=== PATIENT | female | born 1990 | race Caucasian/White ===

== ENCOUNTER 2016-09-10 16:37 | Emergency (ER) | payer OTHER ==
[2016-09-10] MEDS ORDERED: MORPHINE SULFATE 4 MG/ML SYRINGE IV STA ×2 (17:22→20:11)
[2016-09-10] MEDS ORDERED: SODIUM CHLORIDE 0.9% 500 ML IV STA (17:22)
[2016-09-10 17:59] LABS: Appearance,Urine Clear (Clear); Bilirubin,Urine Negative (Negative); Glucose,Urine (UA) Negative (Negative); Ketones,Urine Negative (Negative); Leukocyte Esterase,Urine Negative (Negative); Nitrite,Urine Negative (Negative); Protein,Urine Negative (Negative); Specific Gravity,Urine 1.017 (1.001-1.035); UA Billing (MACRO vs. MICRO) CHEM; Urobilinogen,Urine <2.0 mg/dL (<2.0)
[2016-09-10 18:08] LABS: ALT 38 U/L (9-52); AST 23 U/L (14-36); Alkaline Phosphatase 68 U/L (38-126); Amylase 83 U/L (30-110); Anion Gap 8 mmol/L; Blood Urea Nitrogen 18 mg/dL (7-17); Calcium 9.3 mg/dL (8.4-10.2); Carbon Dioxide 26 mmol/L (22-30); Chloride 105 mmol/L (98-107); Glucose 90 mg/dL (74-99); Non-African American GFR(MDRD) >60 (>60 ml/min/1.73 sqM); Potassium 4.3 mmol/L (3.5-5.1); Sodium 139 mmol/L (137-145); Total Bilirubin 0.5 mg/dL (0.2-1.3); Total Protein 7.2 g/dL (6.3-8.2)
[2016-09-10 18:24] LABS: Aty Lym Flag Slight; CH 30.5; CHCM 35.1; HCT 44.1 % (34.0-46.0); HDW 2.63; HGB 14.9 gm/dL (11.4-16.0); MCH 29.5 pg (25.0-35.0); MCHC 33.8 g/dL (31.0-37.0); MCV 87.3 fL (80.0-100.0); Mean Platelet Volume 9.4; RBC 5.05 m/uL (3.80-5.40); RDW 12.6 % (11.5-15.5); WBC 6.6 k/uL (3.8-10.6); WBC (Perox) 6.64
--- NOTE | 2016-09-10 18:48 | CT ---
EXAMINATION TYPE: CT abdomen pelvis wo con DATE OF EXAM: 09/10/2016 6:25 PM COMPARISON: NONE INDICATION: generalized pain DLP: 565 mGycm, Automated exposure control for dose reduction was used. CONTRAST: None Study performed without Oral Contrast TECHNIQUE: Axial images were obtained from above the diaphragm to the pubic rami in the axial plane a t 5 mm thick sections. Reconstructed images are reviewed on the computer in the coronal plane. FINDINGS: Limited CT sections are obtained the lung bases. The lung bases are clear. CT ABDOMEN: Liver: Normal Spleen: Normal Pancreas: Normal Adrenal glands: The adrenal glands are normal. Gallbladder: Normal Kidneys: No masses are evident. No hydronephrosis is present. No cysts are present. No renal stone s are identified. No hydroureter is evident. Aorta: Normal Inferior vena cava: Normal. CT PELVIS: Loops of bowel within the abdomen and pelvis are normal. Appendix: Normal as visualized. Urinary bladder: Normal. There is a calcification in the left hemipelvis likely related to a phleboli th. Distal ureteral stone without obstruction is considered less likely. Ureters more likely anterior to the location. Genitourinary structures: Uterus is unremarkable. Adnexal regions are clear. Osseous structures: No suspicious lytic or sclerotic lesions. IMPRESSIONS: 1. No suspicious changes.
[2016-09-10 19:06] LABS: Add Differential Manual Differential
[2016-09-10 19:11] LABS: Large Platelets Present; Manual Review Performed; Nucleated Red Blood Cells 0 /100 WBC (0-0); RBC Morphology Normal; Reactive Lymphocytes Present; Total Cells Counted 100
--- NOTE | 2016-09-10 20:14 | ED ---
Abdominal Pain HPI - General Chief Complaint: Abdominal Pain Stated Complaint: Abdominal Pain Time Seen by Provider: 09/10/16 17:03 Source: patient Mode of arrival: ambulatory Limitations: no limitations - History of Present Illness MD Complaint: flank pain Onset/Timin -: days(s) Location: L flank Radiation: none Migration to: no migration Severity: moderate Quality: aching Consistency: constant Improves With: nothing Worsens With: nothing Associated Symptoms: other (Frequency) - Related Data Home Medications Medication Instructions Recorded Confirmed Dextroamphetamine/Amphetamine 20 mg PO BID 05/08/16 10/10/16 [Adderall] Polyethylene Glycol 3350 [Miralax] 17 gm PO DAILY PRN 10/10/16 10/10/16 Previous Rx's Medication Instructions Recorded Dicyclomine [Bentyl] 20 mg PO QID PRN 5 Days 10/10/16 Sucralfate [Carafate] 1 gm PO BID PRN 5 Days 10/10/16 Allergies Allergy/AdvReac Type Severity Reaction Status Date / Time amoxicillin [Amoxicillin] AdvReac Abdominal Verified 10/10/16 11:05 Pain ciprofloxacin [From Cipro] AdvReac itching, Verified 10/10/16 11:05 chest pain, swelling Review of Systems ROS Statement: Those systems with pertinent positive or pertinent negative responses have been documented in the HPI. ROS Other: All systems not noted in ROS Statement are negative. Constitutional: Denies: fever, chills, weakness Respiratory: Denies: cough, dyspnea Cardiovascular: Denies: chest pain, palpitations, edema Gastrointestinal: Reports: as per HPI, abdominal pain (Flank pain). Denies: nausea, vomiting, diarrhea, constipation Genitourinary: Reports: frequency. Denies: dysuria, hematuria, abnormal menses Musculoskeletal: Denies: back pain Skin: Denies: rash Neurological: Denies: headache, weakness, numbness Past Medical History Past Medical History: No Reported History History of Any Multi-Drug Resistant Organisms: None Reported Past Surgical History: Appendectomy, Tonsillectomy Additional Past Surgical History / Comment(s): D & C, nasal surgery, laparoscopy Past Anesthesia/Blood Transfusion Reactions: No Reported Reaction Past Psychological History: No Psychological Hx Reported Smoking Status: Never smoker Past Alcohol Use History: None Reported Past Drug Use History: None Reported - Past Family History Mother Family Medical History: Hypertension General Exam Limitations: no limitations General appearance: alert, in no apparent distress Head exam: Present: atraumatic, normocephalic Eye exam: Present: normal appearance Respiratory exam: Present: normal lung sounds bilaterally. Absent: respiratory distress, wheezes, rales, rhonchi, stridor Cardiovascular Exam: Present: regular rate, normal rhythm, normal heart sounds. Absent: systolic murmur, diastolic murmur, rubs, gallop GI/Abdominal exam: Present: soft. Absent: distended, tenderness, guarding, rebound, rigid, mass, hernia Extremities exam: Present: normal inspection, normal capillary refill. Absent: pedal edema, calf tenderness Back exam: Present: normal inspection, CVA tenderness (L). Absent: CVA tenderness (R) Neurological exam: Present: alert Skin exam: Present: warm, dry, intact, normal color. Absent: rash Course Vital Signs 09/10/16 09/10/16 16:50 20:23 Temperature 99.3 F 98.8 F Pulse Rate 87 75 Respiratory 20 16 Rate Blood Pressure 121/64 121/79 O2 Sat by Pulse 99 97 Oximetry Medical Decision Making - Lab Data Result diagrams: 09/10/16 17:45 09/10/16 17:45 Lab Results 09/10/16 09/10/16 09/10/16 Range/Units 17:45 17:45 17:45 WBC (3.8-10.6) k/uL RBC (3.80-5.40) m/uL Hgb (11.4-16.0) gm/dL Hct (34.0-46.0) % MCV (80.0-100.0) fL MCH (25.0-35.0) pg MCHC (31.0-37.0) g/dL RDW (11.5-15.5) % Plt Count (150-450) k/uL Neutrophils % (Manual) % Lymphocytes % (Manual) % Monocytes % (Manual) % Eosinophils % (Manual) % Neutrophils # (Manual) (1.3-7.7) k/uL Lymphocytes # (Manual) (1.0-4.8) k/uL Monocytes # (Manual) (0-1.0) k/uL Eosinophils # (Manual) (0-0.7) k/uL Nucleated RBCs (0-0) /100 WBC Manual Slide Review Reactive Lymphocytes Large Platelets RBC Morphology Sodium 139 (137-145) mmol/L Potassium 4.3 (3.5-5.1) mmol/L Chloride 105 (98-107) mmol/L Carbon Dioxide 26 (22-30) mmol/L Anion Gap 8 mmol/L BUN 18 H (7-17) mg/dL Creatinine 0.60 (0.52-1.04) mg/dL Est GFR (MDRD) Af Amer >60 (>60 ml/min/1.73 sqM) Est GFR (MDRD) Non-Af >60 (>60 ml/min/1.73 sqM) Glucose 90 (74-99) mg/dL Calcium 9.3 (8.4-10.2) mg/dL Total Bilirubin 0.5 (0.2-1.3) mg/dL AST 23 (14-36) U/L ALT 38 (9-52) U/L Alkaline Phosphatase 68 (38-126) U/L Total Protein 7.2 (6.3-8.2) g/dL Albumin 4.1 (3.5-5.0) g/dL Amylase 83 (30-110) U/L Lipase 254 (23-300) U/L Urine Color Yellow Urine Appearance Clear (Clear) Urine pH 6.0 (5.0-8.0) Ur Specific [place] 1.017 (1.001-1.035) Urine Protein Negative (Negative) Urine Glucose (UA) Negative (Negative) Urine Ketones Negative (Negative) Urine Blood Negative (Negative) Urine Nitrate Negative (Negative) Urine Bilirubin Negative (Negative) Urine Urobilinogen <2.0 (<2.0) mg/dL Ur Leukocyte Esterase Negative (Negative) Urine HCG, Qual Not Detected (Not Detectd) 09/10/16 Range/Units 17:45 WBC 6.6 (3.8-10.6) k/uL RBC 5.05 (3.80-5.40) m/uL Hgb 14.9 (11.4-16.0) gm/dL Hct 44.1 (34.0-46.0) % MCV 87.3 (80.0-100.0) fL MCH 29.5 (25.0-35.0) pg MCHC 33.8 (31.0-37.0) g/dL RDW 12.6 (11.5-15.5) % Plt Count 181 (150-450) k/uL Neutrophils % (Manual) 58.0 % Lymphocytes % (Manual) 32.0 % Monocytes % (Manual) 9.0 % Eosinophils % (Manual) 1.0 % Neutrophils # (Manual) 3.8 (1.3-7.7) k/uL Lymphocytes # (Manual) 2.1 (1.0-4.8) k/uL Monocytes # (Manual) 0.6 (0-1.0) k/uL Eosinophils # (Manual) 0.1 (0-0.7) k/uL Nucleated RBCs 0 (0-0) /100 WBC Manual Slide Review Performed Reactive Lymphocytes Present Large Platelets Present RBC Morphology Normal Sodium (137-145) mmol/L Potassium (3.5-5.1) mmol/L Chloride (98-107) mmol/L Carbon Dioxide (22-30) mmol/L Anion Gap mmol/L BUN (7-17) mg/dL Creatinine (0.52-1.04) mg/dL Est GFR (MDRD) Af Amer (>60 ml/min/1.73 sqM) Est GFR (MDRD) Non-Af (>60 ml/min/1.73 sqM) Glucose (74-99) mg/dL Calcium (8.4-10.2) mg/dL Total Bilirubin (0.2-1.3) mg/dL AST (14-36) U/L ALT (9-52) U/L Alkaline Phosphatase (38-126) U/L Total Protein (6.3-8.2) g/dL Albumin (3.5-5.0) g/dL Amylase (30-110) U/L Lipase (23-300) U/L Urine Color Urine Appearance (Clear) Urine pH (5.0-8.0) Ur Specific [place] (1.001-1.035) Urine Protein (Negative) Urine Glucose (UA) (Negative) Urine Ketones (Negative) Urine Blood (Negative) Urine Nitrate (Negative) Urine Bilirubin (Negative) Urine Urobilinogen (<2.0) mg/dL Ur Leukocyte Esterase (Negative) Urine HCG, Qual (Not Detectd) Disposition Clinical Impression: Abdominal pain Disposition: HOME SELF-CARE Condition: Fair Instructions: Abdominal Pain (ED) Referrals: Kentrell Bell MD [Primary Care Provider] - 1-2 days
[2016-09-10 20:26] VITALS: BP 121/79; PULSE 75; RESP 16; TEMP 98.8
[2016-09-10] MEDS ORDERED: MAGNESIUM CITRATE 296 ML BOTTLE PO ONE (20:45)
== END 2016-09-10 21:08 | disposition home or self-care (01) ==
LOC: EC 16:37
DX: R10.9 Unspecified abdominal pain (principal); Z79.899 Other long term (current) drug therapy; Z88.0 Allergy status to penicillin; Z90.49 Acquired absence of other specified parts of digestive tract
CPT/HCPCS: 36415; 80053; 82150; 83690; 85025; 81003; 81025; 74176; 99284; 96374; 96376; J2270

== ENCOUNTER → 2016-09-18 | Outpatient (CLI) | payer OTHER ==
--- NOTE | 2016-09-18 18:31 | US ---
EXAMINATION TYPE: US transvaginal DATE OF EXAM: 09/18/2016 6:06 PM COMPARISON: CT and US in PACS CLINICAL HISTORY: R10.2 Pelvic Pain. TECHNIQUE: Transvaginal (TV) Date of LMP: 09/18/2016 EXAM MEASUREMENTS: Uterus: 8.3 x 4.2 x 5.0 cm Endometrial Stripe: 0.5 cm Right Ovary: 3.0 x 1.7 x 1.9 cm Left Ovary: 3.0 x 2.0 x 1.7 cm TECHNOLOGIST IMPRESSION: 1. Uterus: Hypoechoic area visualized measuring 0.9 x 0.6 x 0.8 cm, possible fibroid 2. Endometrium: wnl 3. Right Ovary: Follicles visualized 4. Left Ovary: Follicles visualized 5. Bilateral Adnexa: wnl 6. Posterior cul-de-sac: wnl IMPRESSION: Small uterine fibroid on the left side of the uterine fundus. Otherwise negative transvag inal pelvic ultrasound exam.
== END | disposition home or self-care (01) ==
LOC: RADUSMAIN 17:45
PROVIDERS: ATTEND Family Medicine
DX: D25.9 Leiomyoma of uterus, unspecified (principal)
CPT/HCPCS: 76830

== ENCOUNTER 2016-10-02 13:56 | Emergency (ER) | payer OTHER ==
[2016-10-02 14:20] VITALS: BP 127/60; PULSE 70; RESP 16; TEMP 99.1
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
[2016-10-02 16:35] LABS: Hepatitis C Virus IgG Index 0.08
[2016-10-02 16:37] LABS: Hepatitis B Surface Antibody POSITIVE (Negative); Hepatitis C Virus IgG Ab Negative (Negative)
[2016-10-03 07:32] LABS: HIV-1/HIV-2 Ab Screen NONREAC (NON REAC)
== END 2016-10-02 15:24 | disposition home or self-care (01) ==
LOC: EC 13:56
DX: S60.512A Abrasion of left hand, initial encounter (principal); Z79.899 Other long term (current) drug therapy; Z88.0 Allergy status to penicillin; W46.1XXA Contact with contaminated hypodermic needle, initial encounter; Y92.69 Other specified industrial and construction area as the place of occurrence of the external cause; Y99.0 Civilian activity done for income or pay
CPT/HCPCS: 36415; 86706; 86803; 87389; 99282

== ENCOUNTER 2016-10-10 10:02 | Emergency (ER) | payer OTHER ==
[2016-10-10 10:07] VITALS: RESP 18
[2016-10-10] MEDS ORDERED: FAMOTIDINE 20 MG/2 ML VIAL IV STA (10:28)
[2016-10-10] MEDS ORDERED: ONDANSETRON 4 MG/2 ML VIAL IVP STA (10:28)
[2016-10-10] MEDS ORDERED: MAG HYDROX/AL HYDROX/SIMETH 30 ML CUP PO STA (10:28)
[2016-10-10] MEDS ORDERED: DICYCLOMINE 10 MG/ML 2 ML AMP IM STA (10:29)
[2016-10-10] MEDS ORDERED: KETOROLAC 30 MG/ML 1 ML VIAL IVP STA (10:29)
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
[2016-10-10 10:52] LABS: Appearance,Urine Clear (Clear); Bilirubin,Urine Negative (Negative); Glucose,Urine (UA) Negative (Negative); Ketones,Urine Negative (Negative); Leukocyte Esterase,Urine Negative (Negative); Nitrite,Urine Negative (Negative); PH, Urine 5.5 (5.0-8.0); Protein,Urine Negative (Negative); Specific Gravity,Urine 1.016 (1.001-1.035); UA Billing (MACRO vs. MICRO) CHEM; Urobilinogen,Urine <2.0 mg/dL (<2.0)
[2016-10-10 11:00] LABS: ALT 29 U/L (9-52); AST 22 U/L (14-36); Alkaline Phosphatase 58 U/L (38-126); Anion Gap 10 mmol/L; Blood Urea Nitrogen 14 mg/dL (7-17); Calcium 9.7 mg/dL (8.4-10.2); Carbon Dioxide 28 mmol/L (22-30); Chloride 104 mmol/L (98-107); Glucose 87 mg/dL (74-99); Non-African American GFR(MDRD) >60 (>60 ml/min/1.73 sqM); Potassium 4.6 mmol/L (3.5-5.1); Sodium 142 mmol/L (137-145); Total Bilirubin 0.7 mg/dL (0.2-1.3); Total Protein 8.3 g/dL (6.3-8.2)
--- NOTE | 2016-10-10 11:19 | XR ---
EXAMINATION TYPE: XR chest 1V portable DATE OF EXAM: 10/10/2016 11:15 AM COMPARISON: Prior chest x-ray and CTA chest December 20, 2014 HISTORY: Chest pain. TECHNIQUE: Single AP portable frontal upright view of the chest is obtained. FINDINGS: There is no focal air space opacity, pleural effusion, or pneumothorax seen. The cardiac silhouette size is within normal limits. The osseous structures are intact. IMPRESSION: No acute process.
[2016-10-10 11:37] LABS: Aty Lym Flag Slight; CH 30.5; CHCM 34.3; HCT 45.4 % (34.0-46.0); HDW 2.49; HGB 15.1 gm/dL (11.4-16.0); MCH 29.7 pg (25.0-35.0); MCHC 33.3 g/dL (31.0-37.0); MCV 89.4 fL (80.0-100.0); Mean Platelet Volume 10.1; RBC 5.07 m/uL (3.80-5.40); RDW 12.7 % (11.5-15.5); WBC 7.8 k/uL (3.8-10.6); WBC (Perox) 7.85
[2016-10-10 12:04] LABS: Add Differential Manual Differential
[2016-10-10 12:10] LABS: Nucleated Red Blood Cells 0 /100 WBC (0-0); Total Cells Counted 100
[2016-10-10 12:11] LABS: Manual Review Performed; RBC Morphology Normal
[2016-10-10 13:05] VITALS: BP 104/55; PULSE 65; TEMP 99.1
== END 2016-10-10 13:04 | disposition home or self-care (01) ==
LOC: EC 10:02
DX: R10.13 Epigastric pain (principal); R07.9 Chest pain, unspecified; R09.81 Nasal congestion; Z79.899 Other long term (current) drug therapy; Z88.0 Allergy status to penicillin; Z88.1 Allergy status to other antibiotic agents; Z90.89 Acquired absence of other organs
CPT/HCPCS: 36415; 93005; 80053; 83690; 85025; 81003; 81025; 71010; 99284; 96374; 96375 ×2; 96372; J0500; J2405; J1885

== ENCOUNTER → 2017-01-12 | Outpatient (CLI) | payer OTHER ==
--- NOTE | 2017-01-12 16:57 | NM ---
Nuclear medicine hepatobiliary scan. HISTORY: Pain. The patient received 8 ounces of ensure plus and 5.5 mCi of Technetium 99m Choletec. There is normal hepatic extraction. The gallbladder is seen by 15 minutes. There is biliary to robert l clearance not definitively seen at 60 minutes. Ejection fraction is 80%. IMPRESSION: 1. Ejection fraction of 80% can occasionally be seen with hyperdynamic gallbladder. 2. Delayed biliary to bowel transit is a nonspecific finding.
== END ==
LOC: RADNMMAIN 14:36
PROVIDERS: ATTEND Nurse Practitioner Adult Health
DX: R10.11 Right upper quadrant pain (principal)
CPT/HCPCS: 78226; A9537

== ENCOUNTER → 2017-01-15 | Outpatient (CLI) | payer OTHER ==
--- NOTE | 2017-01-15 17:28 | US ---
EXAMINATION TYPE: US gallbladder DATE OF EXAM: 01/15/2017 COMPARISON: [facility] SCAN 2016 CLINICAL HISTORY: R11.0 Nausea,R10.13 epigastric pain;Symptoms x 1 week with constipation and vomiti ng; assess gallbladder EXAM MEASUREMENTS: Liver Length: 17.4 cm Gallbladder Wall: 0.2 cm CBD: 0.4 cm Right Kidney: 10.4 x 6.1 x 3.7 cm Pancreas: wnl Liver: wnl Gallbladder: wnl Evidence for sonographic Cristina's sign: whole abdomen is painful with probe pressure CBD: wnl Right Kidney: wnl Gas is noted right abdomen at patient's area of pain. IMPRESSION: Negative right upper quadrant abdominal sonogram. No gallstones or dilated ducts.
== END | disposition home or self-care (01) ==
LOC: RADUSMAIN 16:25
PROVIDERS: ATTEND Surgery
DX: R10.13 Epigastric pain (principal); R11.0 Nausea
CPT/HCPCS: 76705

== ENCOUNTER 2017-03-26 18:03 | Emergency (ER) | payer OTHER ==
[2017-03-26] MEDS ORDERED: KETOROLAC 30 MG/ML 1 ML VIAL IVP STA (18:27)
[2017-03-26] MEDS ORDERED: MORPHINE SULFATE 4 MG/ML SYRINGE IV ONE (18:28)
--- NOTE | 2017-03-26 18:47 | ED ---
Female Urogenital HPI - General Chief complaint: Vaginal Bleeding Stated complaint: vaginal bleeding Time Seen by Provider: 03/26/17 18:11 Source: patient Mode of arrival: wheelchair Limitations: no limitations - History of Present Illness Initial comments: Patient is a 26-year-old female who presents with chief complaint of vaginal bleeding. She states that she had a suction D&C performed on Sunday for a miscarriage. She states that initially she was doing well however the last 2 days she has had increased cramping, bleeding, passage of clots. Patient cannot identify any aggravating or alleviating factors. Timing is constant. Patient admits to chills at home, and some lightheadedness. On initial evaluation, vital signs are stable. Patient does not appear to be in acute distress. MD Complaint: vaginal bleeding Onset/Timin -: days(s) Radiation: non-radiating Severity: moderate Quality: cramping, sharp Consistency: constant Improves with: none Worsens with: none Patient : No (Patient had a D&C one week ago) Associated Symptoms: vaginal bleeding, abdominal pain, dysuria - Related Data Home Medications Medication Instructions Recorded Confirmed Dextroamphetamine/Amphetamine 20 mg PO BID 05/08/16 03/26/17 [Adderall] Penicillin V Potassium [Pen Vee K] 500 mg PO QID 03/26/17 03/26/17 Previous Rx's Medication Instructions Recorded HYDROcodone/APAP 5-325MG [[place] 1 tab PO Q8HR PRN #9 tab 03/26/17 5-325] Sulfamethox-Tmp 800-160Mg [Bactrim 1 tab PO Q12HR #14 tab 03/26/17 DS 800-160 mg] Allergies Allergy/AdvReac Type Severity Reaction Status Date / Time amoxicillin [Amoxicillin] AdvReac Abdominal Verified 03/26/17 19:41 Pain ciprofloxacin [From Cipro] AdvReac itching, Verified 03/26/17 19:41 chest pain, swelling Review of Systems ROS Statement: Those systems with pertinent positive or pertinent negative responses have been documented in the HPI. ROS Other: All systems not noted in ROS Statement are negative. Constitutional: Reports: chills. Denies: fever Eyes: Denies: vision change ENT: Denies: ear pain, throat pain Respiratory: Denies: cough Cardiovascular: Denies: chest pain Endocrine: Reports: fatigue Gastrointestinal: Reports: abdominal pain. Denies: nausea, vomiting Genitourinary: Reports: urgency. Denies: dysuria Musculoskeletal: Denies: back pain Skin: Denies: rash Neurological: Denies: headache Past Medical History Past Medical History: No Reported History History of Any Multi-Drug Resistant Organisms: None Reported Past Surgical History: Tonsillectomy Additional Past Surgical History / Comment(s): D & C, nasal surgery, laparoscopy Past Anesthesia/Blood Transfusion Reactions: No Reported Reaction Past Psychological History: No Psychological Hx Reported Smoking Status: Never smoker Past Alcohol Use History: None Reported Past Drug Use History: None Reported - Past Family History Mother Family Medical History: Hypertension General Exam Limitations: no limitations General appearance: alert, in no apparent distress Head exam: Present: atraumatic, normocephalic Eye exam: Present: normal appearance, PERRL ENT exam: Present: normal exam Neck exam: Present: normal inspection Respiratory exam: Present: normal lung sounds bilaterally. Absent: respiratory distress, wheezes Cardiovascular Exam: Present: regular rate, normal rhythm, normal heart sounds GI/Abdominal exam: Present: soft, tenderness (Patient has tenderness in the suprapubic region.) Rectal exam: Present: deferred External exam: Present: normal external exam Speculum exam: Present: vaginal bleeding, other (Cervical os is mildly open, there is some ecchymosis of the cervix likely secondary to recent D&C. There is no active hemorrhage.) Back exam: Present: normal inspection Neurological exam: Present: alert, oriented X3 Psychiatric exam: Present: normal affect, normal mood Skin exam: Present: warm, dry, intact Course Vital Signs 03/26/17 18:04 Temperature 98.8 F Pulse Rate 97 Respiratory 18 Rate Blood Pressure 128/68 O2 Sat by Pulse 100 Oximetry Medical Decision Making - Medical Decision Making Patient presents with a chief complaint of vaginal bleeding and abdominal pain 1 week after a suction D&C. History physical examination most consistent with post procedural pain however given the fact the patient states she is having chills at home there is concern for etiologies such as endometritis. Lab evaluation son, pelvic examination is remarkable only for a mildly ecchymotic cervix. There is no active hemorrhage on exam. 9:32 PM Lab evaluation is unremarkable. Ultrasound evaluation of the pelvis shows adequate blood flow to her from bilateral ovaries. There is a complex fluid collection within the uterus consistent with previous D&C. Urinalysis shows strong evidence of urinary tract infection. Patient will be given her first dose of Bactrim in the emergency department. I discussed the results with the patient. I told her that she can expect to have bleeding and clots over the next few days. She is instructed to take Motrin, and Tylenol for pain. She is further instructed to follow-up with primary care, and [facility] within the next week. He was given explicit signs and symptoms that should prompt return visit to the emergency department. At this time all are answered, patient stable for discharge. - Lab Data Result diagrams: 03/26/17 19:00 03/26/17 19:00 Lab Results 03/26/17 03/26/17 03/26/17 Range/Units 19:00 19:00 19:00 WBC 5.9 (3.8-10.6) k/uL RBC 4.34 (3.80-5.40) m/uL Hgb 13.1 (11.4-16.0) gm/dL Hct 38.2 (34.0-46.0) % MCV 88.0 (80.0-100.0) fL MCH 30.3 (25.0-35.0) pg MCHC 34.4 (31.0-37.0) g/dL RDW 13.4 (11.5-15.5) % Plt Count 163 (150-450) k/uL Neutrophils % 60 % Lymphocytes % 21 % Monocytes % 11 % Eosinophils % 2 % Basophils % 1 % Neutrophils # 3.5 (1.3-7.7) k/uL Lymphocytes # 1.2 (1.0-4.8) k/uL Monocytes # 0.7 (0-1.0) k/uL Eosinophils # 0.1 (0-0.7) k/uL Basophils # 0.0 (0-0.2) k/uL Sodium 139 (137-145) mmol/L Potassium 3.7 (3.5-5.1) mmol/L Chloride 106 (98-107) mmol/L Carbon Dioxide 24 (22-30) mmol/L Anion Gap 9 mmol/L BUN 13 (7-17) mg/dL Creatinine 0.68 (0.52-1.04) mg/dL Est GFR (MDRD) Af Amer >60 (>60 ml/min/1.73 sqM) Est GFR (MDRD) Non-Af >60 (>60 ml/min/1.73 sqM) Glucose 78 (74-99) mg/dL Plasma Lactic Acid Erik 1.1 (0.7-2.0) mmol/L Calcium 9.0 (8.4-10.2) mg/dL Total Bilirubin 0.3 (0.2-1.3) mg/dL AST 22 (14-36) U/L ALT 29 (9-52) U/L Alkaline Phosphatase 56 (38-126) U/L Total Protein 6.9 (6.3-8.2) g/dL Albumin 4.0 (3.5-5.0) g/dL Urine Color Urine Appearance (Clear) Urine pH (5.0-8.0) Urine Protein (Negative) Urine Glucose (UA) (Negative) Urine Ketones (Negative) Urine Blood (Negative) Urine Nitrite (Negative) Urine Bilirubin (Negative) Urine Urobilinogen (<2.0) mg/dL Ur Leukocyte Esterase (Negative) Urine RBC (0-5) /hpf Urine WBC (0-5) /hpf Ur Squamous Epith Cells (0-4) /hpf Urine Mucus (None) /hpf 03/26/17 Range/Units 20:50 WBC (3.8-10.6) k/uL RBC (3.80-5.40) m/uL Hgb (11.4-16.0) gm/dL Hct (34.0-46.0) % MCV (80.0-100.0) fL MCH (25.0-35.0) pg MCHC (31.0-37.0) g/dL RDW (11.5-15.5) % Plt Count (150-450) k/uL Neutrophils % % Lymphocytes % % Monocytes % % Eosinophils % % Basophils % % Neutrophils # (1.3-7.7) k/uL Lymphocytes # (1.0-4.8) k/uL Monocytes # (0-1.0) k/uL Eosinophils # (0-0.7) k/uL Basophils # (0-0.2) k/uL Sodium (137-145) mmol/L Potassium (3.5-5.1) mmol/L Chloride (98-107) mmol/L Carbon Dioxide (22-30) mmol/L Anion Gap mmol/L BUN (7-17) mg/dL Creatinine (0.52-1.04) mg/dL Est GFR (MDRD) Af Amer (>60 ml/min/1.73 sqM) Est GFR (MDRD) Non-Af (>60 ml/min/1.73 sqM) Glucose (74-99) mg/dL Plasma Lactic Acid Erik (0.7-2.0) mmol/L Calcium (8.4-10.2) mg/dL Total Bilirubin (0.2-1.3) mg/dL AST (14-36) U/L ALT (9-52) U/L Alkaline Phosphatase (38-126) U/L Total Protein (6.3-8.2) g/dL Albumin (3.5-5.0) g/dL Urine Color Dark Red Urine Appearance Turbid H (Clear) Urine pH 5.5 (5.0-8.0) Urine Protein 3+ H (Negative) Urine Glucose (UA) Negative (Negative) Urine Ketones Trace H (Negative) Urine Blood Large H (Negative) Urine Nitrite Negative (Negative) Urine Bilirubin Negative (Negative) Urine Urobilinogen <2.0 (<2.0) mg/dL Ur Leukocyte Esterase Moderate H (Negative) Urine RBC >182 H (0-5) /hpf Urine WBC >182 H (0-5) /hpf Ur Squamous Epith Cells 16 H (0-4) /hpf Urine Mucus Many H (None) /hpf Disposition Clinical Impression: UTI (urinary tract infection), Vaginal bleeding, Abdominal pain Disposition: HOME SELF-CARE Condition: Good Instructions: Abdominal Pain (ED), Bleeding (ED) Prescriptions: Sulfamethox-Tmp 800-160Mg [Bactrim DS 800-160 mg] 1 tab PO Q12HR #14 tab Referrals: Kentrell Bell MD [Primary Care Provider] - 1-2 days
[2017-03-26 19:22] LABS: Aty Lym Flag Slight; Basophils % (A) 1 %; CH 30.5; CHCM 34.8; Eosinophils # (A) 0.1 k/uL (0-0.7); Eosinophils % (A) 2 %; HCT 38.2 % (34.0-46.0); HDW 2.78; HGB 13.1 gm/dL (11.4-16.0); Luc # (Auto) 0.33; Luc % (Auto) 6; Lymphocytes # (A) 1.2 k/uL (1.0-4.8); Lymphocytes % (A) 21 %; MCH 30.3 pg (25.0-35.0); MCHC 34.4 g/dL (31.0-37.0); Mean Platelet Volume 8.5; Monocytes # (A) 0.7 k/uL (0-1.0); Monocytes % (A) 11 %; Neutrophils # (A) 3.5 k/uL (1.3-7.7); Neutrophils % (A) 60 %; RBC 4.34 m/uL (3.80-5.40); RDW 13.4 % (11.5-15.5); WBC 5.9 k/uL (3.8-10.6); WBC (Perox) 6.38
[2017-03-26 19:40] LABS: ALT 29 U/L (9-52); AST 22 U/L (14-36); Alkaline Phosphatase 56 U/L (38-126); Anion Gap 9 mmol/L; Blood Urea Nitrogen 13 mg/dL (7-17); Carbon Dioxide 24 mmol/L (22-30); Chloride 106 mmol/L (98-107); Glucose 78 mg/dL (74-99); Non-African American GFR(MDRD) >60 (>60 ml/min/1.73 sqM); Potassium 3.7 mmol/L (3.5-5.1); Sodium 139 mmol/L (137-145); Total Bilirubin 0.3 mg/dL (0.2-1.3); Total Protein 6.9 g/dL (6.3-8.2)
--- NOTE | 2017-03-26 20:16 | US ---
EXAMINATION TYPE: US transvaginal DATE OF EXAM: 03/26/2017 COMPARISON: NONE CLINICAL HISTORY: Pain. bleeding 1 post TECHNIQUE: Transvaginal (TV) Date of LMP: 01/03/2017 EXAM MEASUREMENTS: Uterus: 10.4 x 7.3 x 8.1 cm Right Ovary: 3.5 x 2.2 x 2.2 cm Left Ovary: 2.7 x 1.4 x 1.2 cm Complex area visualized in uterus measuring 7.4 x 4.8 x 5.7cm no color flow seen 1. Uterus: retroverted 2. Endometrium: not well visualized 3. Right Ovary: wnl 4. Left Ovary: wnl Spectral, color and waveform doppler imaging shows good arterial and venous flow within the ovaries ; there is no evidence for ovarian torsion. 5. Bilateral Adnexa: wnl 6. Posterior cul-de-sac: wnl IMPRESSION: Complex fluid collection in the uterine cavity measures 7.4 x 4.8 cm and consistent with an incomplete .
[2017-03-26 21:26] LABS: Appearance,Urine Turbid (Clear); Mucus,Urine Many /hpf; Particle Count 137940; RBC,Urine >182 /hpf (0-5); Squamous Epithelial Cell,Urine 16 /hpf (0-4); UA Billing (MACRO vs. MICRO) MICRO; Urobilinogen,Urine <2.0 mg/dL (<2.0); WBC,Urine >182 /hpf (0-5)
[2017-03-26] MEDS ORDERED: SULFAMETHOX-TMP 800-160MG 1 EACH TAB PO STA (21:29)
[2017-03-26 21:59] VITALS: BP 103/51; PULSE 73; RESP 16; TEMP 97.3
== END 2017-03-26 21:59 | disposition home or self-care (01) ==
LOC: EC 18:03
DX: N39.0 Urinary tract infection, site not specified (principal); N93.9 Abnormal uterine and vaginal bleeding, unspecified; R10.9 Unspecified abdominal pain; Z79.899 Other long term (current) drug therapy; Z88.0 Allergy status to penicillin; Z88.1 Allergy status to other antibiotic agents
CPT/HCPCS: 36415; 80053; 83605; 85025; 81001; 93975; 76830; 99284; 96374; 96375; J2270; J1885

== ENCOUNTER → 2017-04-18 | Outpatient (CLI) | payer OTHER ==
--- NOTE | 2017-04-18 13:04 | US ---
EXAMINATION TYPE: US pelvis complete transvag DATE OF EXAM: 04/18/2017 COMPARISON: US 12/24/2016 CLINICAL HISTORY: O03.4 Incomplete Miscarriage. Vaginal bleeding, fever, chills, nausea and vomiting; ; RLQ pain TECHNIQUE: Transvaginal (TV) and Transabdominal (TA) to better assess endometrium. Date of LMP: 01/03/2017 EXAM MEASUREMENTS: Uterus: 8.5 x 6.2 x 4.9 cm Endometrial Stripe: 1.9 cm Right Ovary: 5.0 x 4.4 x 4.5 cm Left Ovary: 3.8 x 1.5 x 1.7 cm 1. Uterus: Retroverted; small Nabothian cyst in CX = 0.3 x 0.2 x 0.2cm; hyperechoic focus in endocer vical canal = 0.4 x 0.3 x 0.1cm may be blood products; couple myometrial fibroids with one on right u pper = 1.3 x 1.1 x 0.8cm and upper left myometrium = 1.1 x 0.8 x 0.8cm. 2. Endometrium: abnormally thickened with vascularity 3. Right Ovary: enlarged with enlarged cyst = 4.7 x 4.2 x 4.5cm 4. Left Ovary: multiple small follicles Spectral, color and waveform doppler imaging shows good arterial and venous flow within the ovaries ; there is no evidence for ovarian torsion. 5. Bilateral Adnexa: small amount of free fluid medial to right ovary = 1.2 x 1.4 x 0.9cm 6. Posterior cul-de-sac: wnl IMPRESSION: 1. Significant improvement in retained products of conception. Small amount of blood products may be present within the endocervical canal. 2. Labral myomatous change of the uterus. 3. Right ovarian cyst and small follicular cyst left ovary. 4. Small amount of free fluid.
== END | disposition home or self-care (01) ==
LOC: RADUSWWP 12:12
PROVIDERS: ATTEND Family Medicine
DX: O03.4 Incomplete spontaneous abortion without complication (principal); N83.02 Follicular cyst of left ovary; N83.201 Unspecified ovarian cyst, right side; N85.8 Other specified noninflammatory disorders of uterus; R19.09 Other intra-abdominal and pelvic swelling, mass and lump
CPT/HCPCS: 76830; 76856

== ENCOUNTER 2017-07-30 18:01 | Emergency (ER) | payer OTHER ==
[2017-07-30 18:47] VITALS: RESP 20
[2017-07-30] MEDS ORDERED: SODIUM CHLORIDE 0.9% 1,000 ML IV STA (18:55)
[2017-07-30] MEDS ORDERED: ALBUTEROL NEBULIZED 2.5 MG/3 ML INHALATION STA (18:55)
[2017-07-30 19:30] LABS: Partial Thromboplastin Time 22.9 sec (22.0-30.0); Prothrombin Time 9.6 sec (9.0-12.0)
[2017-07-30 19:31] LABS: ALT 28 U/L (9-52); AST 23 U/L (14-36); Albumin 3.7 g/dL (3.5-5.0); Alkaline Phosphatase 47 U/L (38-126); Anion Gap 9 mmol/L; Blood Urea Nitrogen 11 mg/dL (7-17); Calcium 9.2 mg/dL (8.4-10.2); Carbon Dioxide 23 mmol/L (22-30); Chloride 103 mmol/L (98-107); Glucose 90 mg/dL (74-99); Magnesium 1.8 mg/dL (1.6-2.3); Potassium 4.4 mmol/L (3.5-5.1); Sodium 135 mmol/L (137-145); Total Bilirubin 0.3 mg/dL (0.2-1.3); Total Protein 6.6 g/dL (6.3-8.2)
--- NOTE | 2017-07-30 19:42 | XR ---
EXAMINATION TYPE: XR chest 2V DATE OF EXAM: 07/30/2017 COMPARISON: 07/12/2017 HISTORY: Cough TECHNIQUE: Frontal and lateral views of the chest are obtained. FINDINGS: Heart and mediastinum are normal. Lungs are clear. Diaphragm is normal. Bony thorax appear s normal. There is mild pectus excavatum chest deformity. IMPRESSION: Normal chest. No change.
[2017-07-30 19:49] LABS: Creatine Kinase 62 U/L (30-135)
--- NOTE | 2017-07-30 19:50 | ED ---
SOB HPI - General Source: patient, RN notes reviewed, old records reviewed Mode of arrival: ambulatory Limitations: no limitations <Kanwal Shah - Last Filed: 07/30/17 22:04> <Yahir Doss - Last Filed: 07/30/17 22:16> - General Chief Complaint: Shortness of Breath Stated Complaint: FLU LIKE SYMPTOMS, 10 WEEKS Time Seen by Provider: 07/30/17 18:19 - History of Present Illness Initial Comments: Is a 27-year-old female who is currently 10 weeks chief complaint of dizziness, fevers, and nonproductive cough. Patient reports that she's had a symptoms for the past 4 days. She reports that she's been feeling very dizzy and lightheaded. She complains of some right-sided chest pain. Patient states that she's had nausea and no vomiting episodes. Denies any diarrhea. She is currently seeing Dr. Rodriguez. She states she's with twins. This is her fourth . Patient denies any recent tylenol. Patient reports she' s also had some lower pelvic cramping. Denies any vaginal bleeding or discharge. (Kanwal Shah) - Related Data Home Medications Medication Instructions Recorded Confirmed Acetaminophen [Tylenol] 650 mg PO Q6HR PRN 07/12/17 07/30/17 Albuterol Nebulized [Ventolin 2.5 mg INHALATION RT-Q4H PRN 07/30/17 07/30/17 Nebulized] Multivitamins, Thera [Multivitamin 1 tab PO DAILY 07/30/17 07/30/17 (formulary)] Allergies Allergy/AdvReac Type Severity Reaction Status Date / Time amoxicillin [Amoxicillin] AdvReac Abdominal Verified 07/30/17 18:20 Pain ciprofloxacin [From Cipro] AdvReac itching, Verified 07/30/17 18:20 chest pain, swelling Review of Systems ROS Other: All systems not noted in ROS Statement are negative. <Kanwal Shah - Last Filed: 07/30/17 22:04> ROS Other: All systems not noted in ROS Statement are negative. <Yahir Doss - Last Filed: 07/30/17 22:16> ROS Statement: Those systems with pertinent positive or pertinent negative responses have been documented in the HPI. Past Medical History Past Medical History: No Reported History, Pneumonia History of Any Multi-Drug Resistant Organisms: None Reported Past Surgical History: Tonsillectomy Additional Past Surgical History / Comment(s): D & C, nasal surgery, laparoscopy Past Anesthesia/Blood Transfusion Reactions: No Reported Reaction Past Psychological History: No Psychological Hx Reported Smoking Status: Never smoker Past Alcohol Use History: None Reported Past Drug Use History: None Reported - Past Family History Mother Family Medical History: Hypertension <Kanwal Shah - Last Filed: 07/30/17 22:04> General Exam Limitations: no limitations General appearance: alert, in no apparent distress Head exam: Present: atraumatic, normocephalic, normal inspection Eye exam: Present: normal appearance, PERRL, EOMI. Absent: scleral icterus, conjunctival injection, periorbital swelling ENT exam: Present: normal exam, normal oropharynx, mucous membranes moist, TM's normal bilaterally Neck exam: Present: normal inspection, full ROM. Absent: tenderness, meningismus, lymphadenopathy Respiratory exam: Present: normal lung sounds bilaterally, other (Lungs sounds are clear bilaterally, but she's been taking short shallow breaths. She reports pain with full deep breaths.). Absent: respiratory distress, wheezes, rales, rhonchi, stridor Cardiovascular Exam: Present: regular rate, normal rhythm, normal heart sounds. Absent: systolic murmur, diastolic murmur, rubs, gallop, clicks GI/Abdominal exam: Present: soft, normal bowel sounds. Absent: distended, tenderness, guarding, rebound, rigid Extremities exam: Present: normal inspection, full ROM, normal capillary refill. Absent: tenderness, pedal edema, joint swelling, calf tenderness Back exam: Present: normal inspection Neurological exam: Present: alert, oriented X3, CN II-XII intact Psychiatric exam: Present: normal affect, normal mood Skin exam: Present: warm, dry, intact, normal color. Absent: rash <Kanwal Shah - Last Filed: 07/30/17 22:04> <Yahir Doss - Last Filed: 07/30/17 22:16> - General Exam Comments Initial Comments: Is a 27-year-old female. Patient appears in moderate discomfort. (Kanwal Shah) Vital Signs 07/30/17 07/30/17 07/30/17 18:13 18:46 19:19 Temperature 99.4 F Pulse Rate 94 81 Respiratory 22 20 Rate Blood Pressure 127/61 O2 Sat by Pulse 100 Oximetry 07/30/17 07/30/17 07/30/17 19:38 19:58 20:23 Temperature Pulse Rate 84 86 98 Respiratory 20 20 Rate Blood Pressure 129/68 O2 Sat by Pulse 100 100 Oximetry 07/30/17 20:54 Temperature 98.9 F Pulse Rate 86 Respiratory 20 Rate Blood Pressure 117/56 O2 Sat by Pulse 100 Oximetry Medical Decision Making - Lab Data Result diagrams: 07/30/17 19:00 07/30/17 19:00 <Kanwal Shah - Last Filed: 07/30/17 22:04> - Lab Data Result diagrams: 07/30/17 19:00 07/30/17 19:00 <Yahir Doss - Last Filed: 07/30/17 22:16> - Medical Decision Making This is a 27-year-old female with history of being 10 weeks presents with 4 days of fever, cough, and congestion. He reports feeling lightheaded and dizzy. She complains of right-sided chest pain. EKG was reviewed and within normal limits. Labwork was reviewed and within normal limits. Chest x- rays reviewed and normal. Patient is concerned about pelvic cramping as well. She is currently 10 weeks . Ultrasound of the fetus was ordered. Patient's given Tylenol and IV fluids. Patient case discussed with Dr. Doss, care transferred at 8:30pm. ( Kanwal Shah) Patient reevaluated after workup is complete. She does have bilateral rhonchi on auscultation. As well as upper respiratory tract signs including nasal congestion. Patient has no known history of asthma or reactive airway disease. She was recently treated for pneumonia with azithromycin. Symptoms have developed over the past 3 days again. Laboratory studies unremarkable. Urinalysis clear. Influenza negative. Chest x-ray shows no focal pneumonia. Ultrasound shows normal 10 week 4 day gestation of twins. No complicating features. Patient will continue her nebulized albuterol at home. She will use Tylenol for fever control. will follow-up with her primary care physician. Diagnosis: URI, bronchitis (Yahir Doss) - Lab Data Lab Results 07/30/17 07/30/17 07/30/17 Range/Units 19:00 19:00 19:00 WBC (3.8-10.6) k/uL RBC (3.80-5.40) m/uL Hgb (11.4-16.0) gm/dL Hct (34.0-46.0) % MCV (80.0-100.0) fL MCH (25.0-35.0) pg MCHC (31.0-37.0) g/dL RDW (11.5-15.5) % Plt Count (150-450) k/uL Neutrophils % (Manual) % Lymphocytes % (Manual) % Monocytes % (Manual) % Eosinophils % (Manual) % Neutrophils # (Manual) (1.3-7.7) k/uL Lymphocytes # (Manual) (1.0-4.8) k/uL Monocytes # (Manual) (0-1.0) k/uL Eosinophils # (Manual) (0-0.7) k/uL Nucleated RBCs (0-0) /100 WBC Manual Slide Review Large Platelets RBC Morphology PT 9.6 (9.0-12.0) sec INR 1.0 (<1.2) APTT 22.9 (22.0-30.0) sec Sodium 135 L (137-145) mmol/L Potassium 4.4 (3.5-5.1) mmol/L Chloride 103 (98-107) mmol/L Carbon Dioxide 23 (22-30) mmol/L Anion Gap 9 mmol/L BUN 11 (7-17) mg/dL Creatinine 0.84 (0.52-1.04) mg/dL Est GFR (MDRD) Af Amer >60 (>60 ml/min/1.73 sqM) Est GFR (MDRD) Non-Af >60 (>60 ml/min/1.73 sqM) Glucose 90 (74-99) mg/dL Calcium 9.2 (8.4-10.2) mg/dL Magnesium 1.8 (1.6-2.3) mg/dL Total Bilirubin 0.3 (0.2-1.3) mg/dL AST 23 (14-36) U/L ALT 28 (9-52) U/L Alkaline Phosphatase 47 (38-126) U/L Total Creatine Kinase 62 (30-135) U/L CK-MB (CK-2) 0.5 (0.0-2.4) ng/mL CK-MB (CK-2) Rel Index 0.8 Troponin I <0.012 (0.000-0.034) ng/mL Total Protein 6.6 (6.3-8.2) g/dL Albumin 3.7 (3.5-5.0) g/dL Urine Color Urine Appearance (Clear) Urine pH (5.0-8.0) Ur Specific [place] (1.001-1.035) Urine Protein (Negative) Urine Glucose (UA) (Negative) Urine Ketones (Negative) Urine Blood (Negative) Urine Nitrite (Negative) Urine Bilirubin (Negative) Urine Urobilinogen (<2.0) mg/dL Ur Leukocyte Esterase (Negative) Influenza Type A RNA (Not Detectd) Influenza Type B (PCR) (Not Detectd) 07/30/17 07/30/17 07/30/17 Range/Units 19:00 20:00 20:30 WBC 6.7 (3.8-10.6) k/uL RBC 4.61 (3.80-5.40) m/uL Hgb 13.7 (11.4-16.0) gm/dL Hct 39.7 (34.0-46.0) % MCV 86.1 (80.0-100.0) fL MCH 29.7 (25.0-35.0) pg MCHC 34.5 (31.0-37.0) g/dL RDW 12.5 (11.5-15.5) % Plt Count 145 L (150-450) k/uL Neutrophils % (Manual) 71 % Lymphocytes % (Manual) 18 % Monocytes % (Manual) 10 % Eosinophils % (Manual) 1 % Neutrophils # (Manual) 4.76 (1.3-7.7) k/uL Lymphocytes # (Manual) 1.21 (1.0-4.8) k/uL Monocytes # (Manual) 0.67 (0-1.0) k/uL Eosinophils # (Manual) 0.07 (0-0.7) k/uL Nucleated RBCs 0 (0-0) /100 WBC Manual Slide Review Performed Large Platelets Present RBC Morphology Normal PT (9.0-12.0) sec INR (<1.2) APTT (22.0-30.0) sec Sodium (137-145) mmol/L Potassium (3.5-5.1) mmol/L Chloride (98-107) mmol/L Carbon Dioxide (22-30) mmol/L Anion Gap mmol/L BUN (7-17) mg/dL Creatinine (0.52-1.04) mg/dL Est GFR (MDRD) Af Amer (>60 ml/min/1.73 sqM) Est GFR (MDRD) Non-Af (>60 ml/min/1.73 sqM) Glucose (74-99) mg/dL Calcium (8.4-10.2) mg/dL Magnesium (1.6-2.3) mg/dL Total Bilirubin (0.2-1.3) mg/dL AST (14-36) U/L ALT (9-52) U/L Alkaline Phosphatase (38-126) U/L Total Creatine Kinase (30-135) U/L CK-MB (CK-2) (0.0-2.4) ng/mL CK-MB (CK-2) Rel Index Troponin I (0.000-0.034) ng/mL Total Protein (6.3-8.2) g/dL Albumin (3.5-5.0) g/dL Urine Color Light Yellow Urine Appearance Clear (Clear) Urine pH 7.0 (5.0-8.0) Ur Specific [place] 1.008 (1.001-1.035) Urine Protein Negative (Negative) Urine Glucose (UA) Negative (Negative) Urine Ketones Negative (Negative) Urine Blood Negative (Negative) Urine Nitrite Negative (Negative) Urine Bilirubin Negative (Negative) Urine Urobilinogen <2.0 (<2.0) mg/dL Ur Leukocyte Esterase Negative (Negative) Influenza Type A RNA Not Detected (Not Detectd) Influenza Type B (PCR) Not Detected (Not Detectd) 07/30/17 20:11 ED performed at 1839 shows normal sinus rhythm. Normal EKG noted. Ventricular 83 bpm. Verbal 150 ms. QRS duration 78 ms. No evidence of ST elevation or T- wave inversion. (Kanwal Shah) Disposition <Kanwal Shah - Last Filed: 07/30/17 22:04> Time of Disposition: 22:15 <Yahir Doss - Last Filed: 07/30/17 22:16> Clinical Impression: Acute bronchitis Disposition: HOME SELF-CARE Condition: Good Instructions: Acute Bronchitis (ED) Referrals: Kentrell Bell MD [Primary Care Provider] - 1-2 days
[2017-07-30 19:55] LABS: HCT 39.7 % (34.0-46.0); HGB 13.7 gm/dL (11.4-16.0); MCH 29.7 pg (25.0-35.0); MCHC 34.5 g/dL (31.0-37.0); MCV 86.1 fL (80.0-100.0); Mean Platelet Volume 9.1; Platelet Count 145 k/uL (150-450); RBC 4.61 m/uL (3.80-5.40); RDW 12.5 % (11.5-15.5); WBC 6.7 k/uL (3.8-10.6)
[2017-07-30 20:03] LABS: Creatine Kinase MB 0.5 ng/mL (0.0-2.4); Troponin I <0.012 ng/mL (0.000-0.034)
[2017-07-30 20:14] LABS: Eosinophils # (M) 0.07 k/uL (0-0.7); Lymphocytes # (M) 1.21 k/uL (1.0-4.8); Monocytes # (M) 0.67 k/uL (0-1.0); Neutrophils # (M) 4.76 k/uL (1.3-7.7); Neutrophils % (M) 71 %; Nucleated Red Blood Cells 0 /100 WBC (0-0); Total Cells Counted 100
[2017-07-30 20:15] LABS: Large Platelets Present
[2017-07-30] MEDS ORDERED: ACETAMINOPHEN TAB 500 MG TAB PO STA (20:15)
[2017-07-30] MEDS ORDERED: SODIUM CHLORIDE 0.9% 1,000 ML IV SCH (20:30)
[2017-07-30 20:42] LABS: Appearance,Urine Clear (Clear); Bilirubin,Urine Negative (Negative); Blood,Urine Negative (Negative); Color,Urine Light Yellow; Glucose,Urine (UA) Negative (Negative); Ketones,Urine Negative (Negative); Leukocyte Esterase,Urine Negative (Negative); Nitrite,Urine Negative (Negative); Protein,Urine Negative (Negative); Specific Gravity,Urine 1.008 (1.001-1.035); Urobilinogen,Urine <2.0 mg/dL (<2.0)
--- NOTE | 2017-07-30 21:55 | US ---
EXAMINATION TYPE: US OB <= 14 wk twins DATE OF EXAM: 07/30/2017 COMPARISON: 07/09/2017 CLINICAL HISTORY: Pain. SOB, Cough, twin gestation EXAM PERFORMED: Transabdominal (TA) EXAM MEASUREMENTS: GESTATIONAL AGE / DATING Physician Established: Not yet established Dates by LMP: (11 weeks/3 days) EDC: 02/15/2018 Dates by First Scan: (10 weeks/0 days) EDC: 02/25/2018 Dates by Current Scan for Baby A: (10 weeks/4 days) EDC: 02/21/2018 Dates by Current Scan for Baby B: (10 weeks/4 days) EDC: 02/21/2018 MATERNAL ANATOMY Uterus: 14.6 x 6.4 x 9.6 cm/ possible small fibroid ml/rt= 1.6 x 1.1 x 1.3 cm Right Ovary: 3.0 x 1.4 x 2.5 cm Left Ovary: 4.0 x 2.8 x 2.4 cm Post CDS / Adnexa: wnl Presence of free fluid: No Presence of corpus luteal cyst: Two on left ovary 1)= 2.3 x 1.5 x 2.0 cm 2)= 2.1 x 1.7 x 1.7 cm Presence of subchorionic bleed: No Presence of two separate gestational sacs: Yes GESTATION / SURVEY TWIN A CRL: 3.6 cm (10wks/4days) MSD: wnl Heart Rate: 179 bpm Rhythm: Normal IUP: Viable IUP TWIN B CRL: 3.6 cm (10wks/4days) MSD: wnl Heart Rate: 172 bpm Rhythm: Normal IUP: Viable IUP Viable twin gestation/ No acute abnormality seen at this time IMPRESSION: Dichorionic diamniotic twin gestation without evidence of complicating process. There is satisfactory growth compared to previous exam.
[2017-07-30 22:27] VITALS: BP 125/71; PULSE 89; TEMP 98.8
== END 2017-07-30 22:30 | disposition home or self-care (01) ==
LOC: EC 18:01
DX: O99.511 Diseases of the respiratory system complicating pregnancy, first trimester (principal); J20.9 Acute bronchitis, unspecified; Z87.01 Personal history of pneumonia (recurrent); Z88.0 Allergy status to penicillin; Z88.1 Allergy status to other antibiotic agents; Z90.89 Acquired absence of other organs; Z3A.10 10 weeks gestation of pregnancy; Z79.899 Other long term (current) drug therapy
CPT/HCPCS: 36415; 71046; 76801; 76802; 80053; 81003; 82550; 82553; 83735; 84484; 85025; 85610; 85730; 87502; 93005; 94640; 96360; 96361; 99285

== ENCOUNTER 2017-08-01 00:16 | Emergency (ER) | payer OTHER ==
[2017-08-01 01:11] LABS: Appearance,Urine Clear (Clear); Bilirubin,Urine Negative (Negative); Blood,Urine Negative (Negative); Color,Urine Light Yellow; Glucose,Urine (UA) Negative (Negative); Ketones,Urine Negative (Negative); Leukocyte Esterase,Urine Negative (Negative); Nitrite,Urine Negative (Negative); PH, Urine 6.5 (5.0-8.0); Protein,Urine Negative (Negative); Specific Gravity,Urine 1.004 (1.001-1.035); Urobilinogen,Urine <2.0 mg/dL (<2.0)
--- NOTE | 2017-08-01 02:30 | US ---
EXAMINATION TYPE: US OB<=14wk fetus twins/travag DATE OF EXAM: 08/01/2017 COMPARISON: NONE CLINICAL HISTORY: Pain. EXAM PERFORMED: Transvaginal (TV) and Transabdominal (TA) EXAM MEASUREMENTS: GESTATIONAL AGE / DATING Physician Established: Not yet established Dates by LMP: (11 weeks/5 days) EDC: 02/15/2018 Dates by First Scan: (10 weeks/0 days) EDC: 02/25/2018 Dates by Current Scan for Baby A: (10 weeks/3 days) EDC: 02/24/2018 Dates by Current Scan for Baby B: (10 weeks/4 days) EDC: 02/23/2018 MATERNAL ANATOMY Uterus: 13.7 x 9.2 x 11.3 cm Post CDS / Adnexa: wnl Presence of free fluid: wnl Presence of corpus luteal cyst: no Presence of subchorionic bleed: no Presence of two separate gestational sacs: Yes GESTATION / SURVEY TWIN A CRL: 3.5 cm 10(wks/3days) Heart Rate: 171 bpm Rhythm: Normal IUP: Viable IUP TWIN B CRL: 3.7cm 10(wks/4days) Heart Rate: 170 bpm Rhythm: Normal IUP: Viable IUP Viable twin gestation no acute abnormality seen at this time. IMPRESSION: Dichorionic diamniotic twin gestation as above. No complicating process seen.
--- NOTE | 2017-08-01 03:02 | ED ---
Female Urogenital HPI - General Chief complaint: Vaginal Bleeding Stated complaint: poss miscarriage/11 wks preg Time Seen by Provider: 08/01/17 00:29 Source: patient, family Mode of arrival: ambulatory Limitations: no limitations - History of Present Illness Initial comments: 27-year-old female patient presents to the emergency department today with complaints of bulging from her vagina. Patient is approximately 11 weeks with a twin gestation. States that she was just seen and evaluated here yesterday for upper respiratory symptoms and abdominal cramping. States she had a normal ultrasound yesterday. She states that all throughout the day today she has been having a pressure in her lower abdomen. States that when she went to the bathroom just prior to arrival she noticed a bulging from her vagina. States that she has also had increase in urination today. Patient denies any vaginal bleeding or discharge. She denies any low back pain with this. Patient denies any recent rash, fever, chills, shortness breath, chest pain, abdominal pain, nausea, vomiting, diarrhea, constipation, numbness, tingling, dizziness, weakness, headache, visual changes, or any other complaints. - Related Data Home Medications Medication Instructions Recorded Confirmed Acetaminophen [Tylenol] 650 mg PO Q6HR PRN 07/12/17 08/01/17 Albuterol Nebulized [Ventolin 2.5 mg INHALATION RT-Q4H PRN 07/30/17 08/01/17 Nebulized] Multivitamins, Thera [Multivitamin 1 tab PO DAILY 07/30/17 08/01/17 (formulary)] Allergies Allergy/AdvReac Type Severity Reaction Status Date / Time amoxicillin [Amoxicillin] AdvReac Abdominal Verified 07/30/17 18:20 Pain ciprofloxacin [From Cipro] AdvReac itching, Verified 07/30/17 18:20 chest pain, swelling Review of Systems ROS Statement: Those systems with pertinent positive or pertinent negative responses have been documented in the HPI. ROS Other: All systems not noted in ROS Statement are negative. Past Medical History Past Medical History: Pneumonia History of Any Multi-Drug Resistant Organisms: None Reported Past Surgical History: Tonsillectomy Additional Past Surgical History / Comment(s): D & C, nasal surgery, laparoscopy Past Anesthesia/Blood Transfusion Reactions: No Reported Reaction Past Psychological History: No Psychological Hx Reported Smoking Status: Never smoker Past Alcohol Use History: None Reported Past Drug Use History: None Reported - Past Family History Mother Family Medical History: Hypertension General Exam Limitations: no limitations General appearance: alert, in no apparent distress, anxious, other (This is a well-developed, well-nourished adult female patient in no acute distress. Vital signs upon presentation were temperature 98.7F, pulse 100, respirations 20, blood pressure 149/100, pulse ox 100% on room air.) Eye exam: Present: normal appearance, PERRL, EOMI. Absent: scleral icterus, conjunctival injection, periorbital swelling ENT exam: Present: normal exam, normal oropharynx, mucous membranes moist Respiratory exam: Present: normal lung sounds bilaterally. Absent: respiratory distress, wheezes, rales, rhonchi, stridor Cardiovascular Exam: Present: regular rate, normal rhythm, normal heart sounds. Absent: systolic murmur, diastolic murmur, rubs, gallop, clicks GI/Abdominal exam: Present: soft, normal bowel sounds. Absent: distended, tenderness, guarding, rebound, rigid External exam: Present: other (Patient has bulging to the area just above the vaginal opening while bearing down) Speculum exam: Present: normal speculum exam, other (Unable to visualize the cervix). Absent: erythema, vaginal discharge, vaginal bleeding By manual exam: Present: uterine enlargement. Absent: cervical motion tenderness, adnexal tenderness, uterine tenderness Back exam: Present: normal inspection. Absent: CVA tenderness (R), CVA tenderness (L) Neurological exam: Present: alert, oriented X3, CN II-XII intact Psychiatric exam: Present: normal affect, normal mood Skin exam: Present: warm, dry, intact, normal color. Absent: rash Course Vital Signs 08/01/17 08/01/17 00:23 03:11 Temperature 98.7 F Pulse Rate 100 82 Respiratory 20 18 Rate Blood Pressure 149/100 136/78 O2 Sat by Pulse 100 98 Oximetry Medical Decision Making - Medical Decision Making 27-year-old female patient presented to the emergency department today for evaluation of a bulging from the vagina. Physical examination did reveal a bulging noted to the area just above the vaginal opening with bearing down. Pelvic examination revealed a normal speculum exam however was unable to visualize the cervix during this. Bimanual exam was normal, cervix was closed and thickened. There is no uterine tenderness or adnexal tenderness. There is no evidence of vaginal bleeding or discharge. Ultrasound was obtained and showed a viable intrauterine twin gestation. Heart rates were in the 170s. Patient will be discharged home at this time to follow-up with her [facility] for further evaluation. It is felt that she could possibly be suffering from a cystocele. I did educate her regarding this diagnosis and educated regarding the importance of follow-up. She is instructed to return here immediately for any new, worsening, or concerning symptoms. She verbalizes understanding and agrees with this plan. - Lab Data Lab Results 08/01/17 Range/Units 01:04 Urine Color Light Yellow Urine Appearance Clear (Clear) Urine pH 6.5 (5.0-8.0) Ur Specific [place] 1.004 (1.001-1.035) Urine Protein Negative (Negative) Urine Glucose (UA) Negative (Negative) Urine Ketones Negative (Negative) Urine Blood Negative (Negative) Urine Nitrite Negative (Negative) Urine Bilirubin Negative (Negative) Urine Urobilinogen <2.0 (<2.0) mg/dL Ur Leukocyte Esterase Negative (Negative) - Radiology Data Radiology results: report reviewed Transabdominal and transvaginal ultrasound was obtained, report was reviewed in its entirety. Impression by Dr. Meade shows viable intrauterine dichorionic diamniotic gestation. No complicating process seen. Heart rate for twin A was 171. Heart rate for twin B was 170. Disposition Clinical Impression: Disposition: HOME SELF-CARE Condition: Good Instructions: (ED), Cystocele (ED) Additional Instructions: Follow-up with [facility] as soon as possible. Return here immediately for any new , worsening, or concerning symptoms. Referrals: Kentrell Bell MD [Primary Care Provider] - 1-2 days Time of Disposition: 03:02
[2017-08-01 23:16] VITALS: BP 136/78; PULSE 82; RESP 18; TEMP 98.7
== END 2017-08-01 03:13 | disposition home or self-care (01) ==
LOC: EC 00:16
DX: O20.9 Hemorrhage in early pregnancy, unspecified (principal); Z3A.11 11 weeks gestation of pregnancy; Z88.0 Allergy status to penicillin; Z88.1 Allergy status to other antibiotic agents
CPT/HCPCS: 76801; 76802; 76817; 81003; 99284

== ENCOUNTER → 2018-08-20 | Outpatient (CLI) | payer OTHER ==
--- NOTE | 2018-08-20 17:31 | ECHOF ---
Referral Reason:I51.7 Cardiomegaly MEASUREMENTS -------- HEIGHT: 157.5 cm WEIGHT: 86.2 kg BP: IVSd: 1.0 cm (0.6 - 1.1) LVIDd: 4.6 cm (3.9 - 5.3) LVPWd: 0.9 cm (0.6 - 1.1) IVSs: 1.4 cm LVIDs: 3.1 cm LVPWs: 1.4 cm RVIDd: 2.6 cm (< 3.3) LAESV Index (A-L): 21.73 ml/m Ao Diam: 2.7 cm (2.0 - 3.7) LA Diam: 3.1 cm (2.7 - 3.8) AV Cusp: 1.2 cm (1.5 - 2.6) EPSS: 0.8 cm MV E Mukul: 0.99 m/s MV DecT: 196 ms MV A Mukul: 0.83 m/s MV E/A Ratio: 1.18 RAP: 5.00 mmHg RVSP: 28.88 mmHg MV EF SLOPE: 102.73 mm/s (70 - 150) MV EXCURSION: 1.79 cm (> 18.000) FINDINGS -------- Sinus rhythm. This was a technically good study. The left ventricular size is normal. Left ventricular wall thickness is normal. Overall left vent ricular systolic function is normal with, an EF between 55 - 60 %. The right ventricle is normal in size and function. Normal LA size by volume 22+/-6 ml/m2. The right atrium is normal in size. The aortic valve is trileaflet, and appears structurally normal. No aortic stenosis or regurgitation. The mitral valve leaflets are mildly thickened. Mild mitral regurgitation is present. Mild tricuspid regurgitation present. Right ventricular systolic pressure is normal at < 35 mmHg. There is no evidence of pulmonary hypertension. Trace/mild (physiologic) pulmonic regurgitation. The aortic root size is normal. Normal inferior vena cava with normal inspiratory collapse consistent with estimated right atrial pre ssure of 5 mmHg. The pericardium is normal. CONCLUSIONS -------- 1. Sinus rhythm. 2. This was a technically good study. 3. The left ventricular size is normal. 4. Left ventricular wall thickness is normal. 5. Overall left ventricular systolic function is normal with, an EF between 55 - 60 %. 6. Normal LA size by volume 22+/-6 ml/m2. 7. The aortic valve is trileaflet, and appears structurally normal. No aortic stenosis or regurgitati on. 8. The mitral valve leaflets are mildly thickened. 9. Mild mitral regurgitation is present. 10. Mild tricuspid regurgitation present. 11. Right ventricular systolic pressure is normal at < 35 mmHg. 12. There is no evidence of pulmonary hypertension. 13. Trace/mild (physiologic) pulmonic regurgitation. 14. The aortic root size is normal. 15. The pericardium is normal. FLY FRAME TENDER: Paul Kenny RDCS
== END | disposition home or self-care (01) ==
LOC: RADECHMAIN 14:42
PROVIDERS: ATTEND Family Medicine
DX: I08.1 Rheumatic disorders of both mitral and tricuspid valves (principal)
CPT/HCPCS: 93306

== ENCOUNTER 2019-03-02 20:20 | Emergency (ER) | payer OTHER ==
[2019-03-02 20:27] VITALS: TEMP 98.3
[2019-03-02] MEDS ORDERED: HYDROcodone/APAP 5-325MG 1 EACH TAB PO STA (20:37)
[2019-03-02] MEDS ORDERED: ONDANSETRON ODT 4 MG TAB PO STA (20:37)
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
[2019-03-02 22:17] VITALS: BP 121/73; PULSE 66; RESP 18
== END 2019-03-02 22:16 | disposition home or self-care (01) ==
LOC: EC 20:20
DX: S09.90XA Unspecified injury of head, initial encounter (principal); S16.1XXA Strain of muscle, fascia and tendon at neck level, initial encounter; S90.31XA Contusion of right foot, initial encounter; Z88.0 Allergy status to penicillin; Z88.1 Allergy status to other antibiotic agents; Y04.8XXA Assault by other bodily force, initial encounter
CPT/HCPCS: 70450; 72125; 99284

== ENCOUNTER → 2019-09-01 | Outpatient (CLI) | payer OTHER ==
--- NOTE | 2019-09-02 10:29 | ECHOF ---
Referral Reason:R07.9 chest pain MEASUREMENTS -------- HEIGHT: 157.5 cm WEIGHT: 91.2 kg BP: 132/71 RVIDd: 2.6 cm (< 3.3) IVSd: 1.2 cm (0.6 - 1.1) LVIDd: 3.9 cm (3.9 - 5.3) LVPWd: 1.1 cm (0.6 - 1.1) IVSs: 1.9 cm LVIDs: 2.9 cm LVPWs: 1.4 cm LAESV Index (A-L): 13.69 ml/m Ao Diam: 2.8 cm (2.0 - 3.7) AV Cusp: 2.0 cm (1.5 - 2.6) MV EXCURSION: 17.766 mm (> 18.000) MV EF SLOPE: 75 mm/s (70 - 150) EPSS: 0.5 cm MV E Mukul: 0.63 m/s MV DecT: 362 ms MV A Mukul: 0.64 m/s MV E/A Ratio: 0.98 FINDINGS -------- Sinus rhythm. This was a technically good study. The left ventricular size is normal. There is borderline concentric left ventricular hypertrophy. Overall left ventricular systolic function is normal with, an EF between 55 - 60 %. The right ventricle is normal in size. Normal LA size by volume 22+/-6 ml/m2. The right atrium is normal in size. Interatrial and interventricular septum intact. The aortic valve is trileaflet and appears structurally normal. The mitral valve is normal. The tricuspid valve appears structurally normal. The pulmonic valve was not well visualized. The aortic root size is normal. Normal inferior vena cava with normal inspiratory collapse consistent with estimated right atrial pre ssure of 5 mmHg. There is no pericardial effusion. CONCLUSIONS -------- 1. Sinus rhythm. 2. This was a technically good study. 3. The left ventricular size is normal. 4. There is borderline concentric left ventricular hypertrophy. 5. Overall left ventricular systolic function is normal with, an EF between 55 - 60 %. 6. The right ventricle is normal in size. 7. Normal LA size by volume 22+/-6 ml/m2. 8. The right atrium is normal in size. 9. Interatrial and interventricular septum intact. 10. The aortic valve is trileaflet and appears structurally normal. 11. The mitral valve is normal. 12. The tricuspid valve appears structurally normal. 13. The pulmonic valve was not well visualized. 14. The aortic root size is normal. 15. Normal inferior vena cava with normal inspiratory collapse consistent with estimated right atrial pressure of 5 mmHg. 16. There is no pericardial effusion. MACHINERY ENGINEER: Denia Dunlap RDCS
== END | disposition home or self-care (01) ==
LOC: RADECHMAIN 15:42
PROVIDERS: ATTEND Family Medicine
DX: R07.9 Chest pain, unspecified (principal)
CPT/HCPCS: 93306

== ENCOUNTER 2020-03-30 18:47 | Emergency (ER) | payer OTHER ==
[2020-03-30] MEDS ORDERED: ALBUTEROL HFA INHALER INHALATION STA (19:27)
[2020-03-30] MEDS ORDERED: IBUPROFEN 600 MG TAB PO STA (19:27)
--- NOTE | 2020-03-30 19:34 | ED ---
General Adult HPI - General Chief complaint: Shortness of Breath Stated complaint: Covid Symptoms Time Seen by Provider: 03/30/20 19:13 Source: patient, RN notes reviewed Mode of arrival: ambulatory Limitations: no limitations - History of Present Illness Initial comments: 29-year-old female without significant past medical history presents to the emergency room for a chief complaint of shortness of breath. Patient reports that she woke up around 3:00 this morning and had a nonproductive cough and sore throat. states her symptoms are consistent with bronchitis. Patient states she had a fever of 101.1. She did take Tylenol. Throughout the day she has developed shortness of breath. She states tonight her chest hurts. states that it hurts when she coughs. States it hurts when she moves as well. She feels weak. She has chills and body aches. She was seen by her doctor and had covid testing performed today, results are pending. Patient continued to not feel well and presented to the emergency room. Patient denies history of asthma or smoking.Patient has no other complaints at this time including abdominal pain, nausea or vomiting, headache, or visual changes. - Related Data Home Medications Medication Instructions Recorded Confirmed Acetaminophen [Tylenol] 650 mg PO Q6HR PRN 07/12/17 08/01/17 Albuterol Nebulized [Ventolin 2.5 mg INHALATION RT-Q4H PRN 07/30/17 08/01/17 Nebulized] Multivitamins, Thera [Multivitamin 1 tab PO DAILY 07/30/17 08/01/17 (formulary)] Previous Rx's Medication Instructions Recorded Ibuprofen [Motrin] 600 mg PO Q8HR PRN #30 tab 03/02/19 Albuterol Inhaler [Ventolin Hfa 2 puff INHALATION Q6H PRN #1 03/30/20 Inhaler] inhaler predniSONE 50 mg PO DAILY #5 tablet 03/30/20 Allergies Allergy/AdvReac Type Severity Reaction Status Date / Time amoxicillin [Amoxicillin] AdvReac Abdominal Verified 03/30/20 19:10 Pain ciprofloxacin [From Cipro] AdvReac itching, Verified 03/30/20 19:10 chest pain, swelling Review of Systems ROS Statement: Those systems with pertinent positive or pertinent negative responses have been documented in the HPI. ROS Other: All systems not noted in ROS Statement are negative. Past Medical History Past Medical History: Pneumonia History of Any Multi-Drug Resistant Organisms: None Reported Past Surgical History: Tonsillectomy Additional Past Surgical History / Comment(s): D & C, nasal surgery, laparoscopy Past Anesthesia/Blood Transfusion Reactions: No Reported Reaction Past Psychological History: No Psychological Hx Reported Past Alcohol Use History: None Reported Past Drug Use History: None Reported - Past Family History Mother Family Medical History: Hypertension General Exam Limitations: no limitations General appearance: alert, in no apparent distress Head exam: Present: atraumatic, normocephalic, normal inspection Eye exam: Present: normal appearance, PERRL, EOMI. Absent: scleral icterus, conjunctival injection, periorbital swelling ENT exam: Present: normal exam, normal oropharynx (no tonsillar exudates bilaterally.), mucous membranes moist, TM's normal bilaterally, normal external ear exam Neck exam: Present: normal inspection, full ROM. Absent: tenderness, meningismus, lymphadenopathy Respiratory exam: Present: normal lung sounds bilaterally, chest wall tenderness. Absent: respiratory distress, wheezes, rales, rhonchi, stridor Cardiovascular Exam: Present: regular rate, normal rhythm, normal heart sounds. Absent: systolic murmur, diastolic murmur, rubs, gallop, clicks GI/Abdominal exam: Present: soft, normal bowel sounds. Absent: distended, tenderness, guarding, rebound, rigid Neurological exam: Present: alert Course Vital Signs 03/30/20 03/30/20 19:06 19:18 Temperature 99.2 F Pulse Rate 82 Respiratory 16 18 Rate Blood Pressure 126/66 O2 Sat by Pulse 98 Oximetry EKG Findings - EKG Comments: EKG Findings:: normal sinus rhythm, ventricular rate 70, GA interval 144, QTC 419 Medical Decision Making - Medical Decision Making Vitals are stable. Patient is afebrile. Patient is currently 98% on room air. No respiratory distress. No stridor or wheezing or drooling. chest pain is reproducible on exam. Chest x-ray shows a normal chest. patient will be started on steroids per her request stating that steroids help with these symptoms of her bronchitis. Patient will follow-up with her doctor in one to 2 days. She'll return here for any worsening symptoms. She will follow-up on Covid testing as well. patient denies any chance of stating she has had a tubal in the past.I discussed this case with attending Dr. Brown who agrees with this assessment and treatment plan. Disposition Clinical Impression: Cough, Atypical chest pain Disposition: HOME SELF-CARE Condition: Good Instructions (If sedation given, give patient instructions): Acute Bronchitis (ED) Additional Instructions: please take medications as directed. Return to the emergency room for any worsening symptoms. Otherwise follow-up on her test results as well as with your doctor in one to 2 days. Prescriptions: predniSONE 50 mg PO DAILY #5 tablet Albuterol Inhaler [Ventolin Hfa Inhaler] 2 puff INHALATION Q6H PRN #1 inhaler PRN Reason: Shortness Of Breath Is patient prescribed a controlled substance at d/c from ED?: No Referrals: Kentrell Bell MD [Primary Care Provider] - 1-2 days Time of Disposition: 20:20
--- NOTE | 2020-03-30 19:43 | XR ---
EXAMINATION TYPE: XR chest 1V portable DATE OF EXAM: 03/30/2020 COMPARISON: July 30, 2017 HISTORY: Cough TECHNIQUE: FINDINGS: Heart and mediastinum are normal. Lungs are clear. Diaphragm is normal. Bony thorax appears normal. IMPRESSION: Normal chest. No change.
[2020-03-30] MEDS ORDERED: methylPREDNISolone SOD SUCCI 125 MG/2 ML VIAL IM STA (20:19)
[2020-03-30 20:38] VITALS: BP 124/66; PULSE 87; RESP 16; TEMP 97.8
== END 2020-03-30 20:38 | disposition home or self-care (01) ==
LOC: EC 18:47
DX: R07.89 Other chest pain (principal); R05 Cough; Z88.0 Allergy status to penicillin; Z88.1 Allergy status to other antibiotic agents; Z87.01 Personal history of pneumonia (recurrent); Z20.828 Contact with and (suspected) exposure to other viral communicable diseases
CPT/HCPCS: 99285; 96372; 94640; 71045; J2930; 93005

== ENCOUNTER 2020-04-04 08:30 | Emergency (ER) | payer OTHER ==
[2020-04-04] MEDS ORDERED: IPRATROPIUM-ALBUTEROL 3 ML NEB INHALATION STA (08:51)
--- NOTE | 2020-04-04 09:09 | ED ---
URI HPI - General Chief Complaint: Upper Respiratory Infection Stated Complaint: SOB Time Seen by Provider: 04/04/20 08:41 Source: patient Mode of arrival: ambulatory Limitations: no limitations - History of Present Illness Initial Comments: Patient is a 29-year-old female presenting to the emergency Department with complaints of increasing cough and shortness of breath over the past week. Patient was seen in the ER 5 days ago and diagnosed with bronchitis and was started on steroids as well as an inhaler. Patient states she feels like her cough is getting worse. She is having episodes of shortness of breath. Eyes any fever, chills, vomiting, abdominal pain, chest pain. She states she is having a mild sore throat as well. Patient states she was tested for Covid which was negative. She denies history of asthma, COPD. She has no further complaints at this time. Upon arrival to the ER, patient is in no respiratory distress, vital signs are normal. - Related Data Home Medications Medication Instructions Recorded Confirmed Albuterol Sulfate [Ventolin HFA] 2 puff INHALATION RT-QID PRN 04/04/20 04/04/20 Dextroamphetamine/Amphetamine 20 mg PO BID 04/04/20 04/04/20 [Adderall] Sertraline [Zoloft] 100 mg PO DAILY 04/04/20 04/04/20 Previous Rx's Medication Instructions Recorded Azithromycin [Zithromax Z-pack] 0 mg PO DIRECTED #1 pack 04/04/20 methylPREDNISolone [Medrol Dose 4 mg PO DIRECTED #1 pack 04/04/20 Pack] Allergies Allergy/AdvReac Type Severity Reaction Status Date / Time amoxicillin [Amoxicillin] AdvReac Abdominal Verified 04/04/20 09:42 Pain ciprofloxacin [From Cipro] AdvReac itching, Verified 04/04/20 09:42 chest pain, swelling Review of Systems ROS Statement: Those systems with pertinent positive or pertinent negative responses have been documented in the HPI. ROS Other: All systems not noted in ROS Statement are negative. Past Medical History Past Medical History: Pneumonia History of Any Multi-Drug Resistant Organisms: None Reported Past Surgical History: Tonsillectomy Additional Past Surgical History / Comment(s): D & C, nasal surgery, laparoscopy Past Anesthesia/Blood Transfusion Reactions: No Reported Reaction Past Psychological History: No Psychological Hx Reported Smoking Status: Current every day smoker Past Alcohol Use History: None Reported Past Drug Use History: None Reported - Past Family History Mother Family Medical History: Hypertension General Exam - General Exam Comments Initial Comments: GENERAL: Patient is well-developed and well-nourished. Patient is nontoxic and in no acute distress. HEAD: Atraumatic, normocephalic. EYES: Pupils equal round and reactive to light, extraocular movements intact, sclera anicteric, conjunctiva are normal. Eyelids were unremarkable. ENT: TMs normal, nares patent, oropharynx clear without exudates. Moist mucous membranes. NECK: Normal range of motion, supple without lymphadenopathy or JVD. LUNGS: Unlabored respirations. Breath sounds clear to auscultation bilaterally and equal. No wheezes rales or rhonchi. A mild dry cough is noted. HEART: Regular rate and rhythm without murmurs, rubs or gallops. ABDOMEN: Soft, nontender, normoactive bowel sounds. No guarding, no rebound. No masses appreciated. : Deferred MUSCULOSKELETAL: Normal extremities with adequate strength and normal range of motion, no pitting or edema. No clubbing or cyanosis. NEUROLOGICAL: Patient is alert and oriented x 3. Motor and sensory are also intact. Cranial nerves II through XII grossly intact. Symmetrical smile. Normal speech, normal gait. PSYCH: Normal mood, normal affect. SKIN: Warm, Dry, normal turgor, no rashes or lesions noted. Limitations: no limitations Course Vital Signs 04/04/20 04/04/20 04/04/20 08:35 09:08 09:18 Temperature 98.2 F Pulse Rate 88 86 88 Respiratory 18 Rate Blood Pressure 147/102 O2 Sat by Pulse 99 Oximetry 04/04/20 04/04/20 09:27 10:00 Temperature 98.4 F 98.4 F Pulse Rate 86 78 Respiratory 20 18 Rate Blood Pressure 140/85 132/80 O2 Sat by Pulse 97 96 Oximetry Medical Decision Making - Medical Decision Making Patient is a 29-year-old female here for increasing cough and shortness of breath for the past week. She was diagnosed with bronchitis the last week in the ER started on steroids and inhaler. Patient is in no acute respiratory distress, her exam is unremarkable, no wheezes or rales. Her vital signs are stable, 99% on room air. Chest x-ray reveals no acute process. Patient was g iven a breathing treatment. Her lungs remained clear. Patient seems to be only coughing while we are present in the room. Patient will be continued on steroids for a few more days as well as started with a Z-Alber. Patient does have inhalers at home that she can continue with. I recommended Mucinex as well. She can follow up with her PCP. She is in agreement with this plan of care and is stable for discharge. Return parameters were discussed with the patient she verbalized understanding. Disposition Clinical Impression: Upper respiratory tract infection, Cough Disposition: HOME SELF-CARE Condition: Stable Instructions (If sedation given, give patient instructions): Upper Respiratory Infection (ED) Additional Instructions: Please return to the Emergency Department if symptoms worsen or any other concerns. Take medications as prescribed. Recommend Mucinex for cough and congestion. Follow-up with PCP. Prescriptions: methylPREDNISolone [Medrol Dose Pack] 4 mg PO DIRECTED #1 pack Azithromycin [Zithromax Z-pack] 0 mg PO DIRECTED #1 pack Is patient prescribed a controlled substance at d/c from ED?: No Referrals: Kentrell Bell MD [Primary Care Provider] - 1-2 days
[2020-04-04 09:30] VITALS: TEMP 98.4
--- NOTE | 2020-04-04 09:51 | XR ---
EXAMINATION TYPE: XR chest 2V DATE OF EXAM: 04/04/2020 CLINICAL HISTORY: Cough and congestion TECHNIQUE: Frontal and lateral views of the chest are obtained. COMPARISON: 03/30/2020 chest radiograph FINDINGS: The cardiomediastinal silhouette is within normal limits for size. Pulmonary vasculature i s normal. There is no focal air space opacity, pleural effusion, or pneumothorax seen. The osseous st ructures are intact. IMPRESSION: No acute cardiopulmonary process.
[2020-04-04 10:19] VITALS: BP 132/80; PULSE 78; RESP 18
== END 2020-04-04 10:20 | disposition home or self-care (01) ==
LOC: EC 08:30
DX: J06.9 Acute upper respiratory infection, unspecified (principal); F17.200 Nicotine dependence, unspecified, uncomplicated; Z88.0 Allergy status to penicillin; Z88.1 Allergy status to other antibiotic agents; Z20.828 Contact with and (suspected) exposure to other viral communicable diseases; Z87.01 Personal history of pneumonia (recurrent)
CPT/HCPCS: 71046; 94640; 99284

== ENCOUNTER 2020-08-20 06:39 | Emergency (ER) | payer OTHER ==
[2020-08-20] MEDS ORDERED: SODIUM CHLORIDE 0.9% 1,000 ML IV STA (06:53)
--- NOTE | 2020-08-20 07:06 | ED ---
Weakness HPI - General Chief complaint: Weakness Stated complaint: Dehydrated Time Seen by Provider: 08/20/20 06:48 Source: patient, family, RN notes reviewed Mode of arrival: wheelchair Limitations: no limitations - History of Present Illness Initial comments: Patient is a 30-year-old female who presents to the emergency department with her mother. She states that for the last several days she's been feeling very weak she also reports that she has drank very little water or fluids in the last several days. She noted that she only drank 1-2 glasses of water over the last several days. Patient stated that when she goes from a seated position to a standing position she gets mildly dizzy. Her mother stated that she needs to drink more. Patient stated other than feeling weak she noticed that her hand gets mildly swollen in her right leg gives mildly swollen. Patient denies swollen extremities at the time of interview and exam. Patient denies any possibility of due to previous tubal ligation. Patient was well- appearing and in no immediate distress or pain. Patient denied any nausea, vomiting, diarrhea, constipation, chest pain, shortness of breath, chills, night sweats, dysuria tenderness or pain - Related Data Home Medications Medication Instructions Recorded Confirmed Dextroamphetamine/Amphetamine 20 mg PO BID 04/04/20 04/04/20 [Adderall] Allergies Allergy/AdvReac Type Severity Reaction Status Date / Time amoxicillin [Amoxicillin] AdvReac Abdominal Verified 08/20/20 07:25 Pain ciprofloxacin [From Cipro] AdvReac itching, Verified 08/20/20 07:25 chest pain, swelling Review of Systems ROS Statement: Those systems with pertinent positive or pertinent negative responses have been documented in the HPI. ROS Other: All systems not noted in ROS Statement are negative. Past Medical History Past Medical History: Pneumonia History of Any Multi-Drug Resistant Organisms: None Reported Past Surgical History: Tonsillectomy, Tubal Ligation (January 2018) Additional Past Surgical History / Comment(s): D & C, nasal surgery, laparoscopy Past Anesthesia/Blood Transfusion Reactions: No Reported Reaction Past Psychological History: No Psychological Hx Reported Smoking Status: Current every day smoker Past Alcohol Use History: None Reported Past Drug Use History: None Reported - Past Family History Mother Family Medical History: Hypertension General Exam Limitations: no limitations General appearance: alert, in no apparent distress Head exam: Present: atraumatic, normocephalic, normal inspection Eye exam: Present: normal appearance, PERRL, EOMI. Absent: scleral icterus, conjunctival injection, periorbital swelling ENT exam: Present: normal exam, mucous membranes moist Neck exam: Present: normal inspection. Absent: tenderness, meningismus, lymphadenopathy Respiratory exam: Present: normal lung sounds bilaterally. Absent: respiratory distress, wheezes, rales, rhonchi, stridor Cardiovascular Exam: Present: regular rate, normal rhythm, normal heart sounds. Absent: systolic murmur, diastolic murmur, rubs, gallop, clicks GI/Abdominal exam: Present: soft, normal bowel sounds. Absent: distended, tenderness, guarding, rebound, rigid Extremities exam: Present: normal inspection, full ROM, normal capillary refill. Absent: tenderness, pedal edema, joint swelling, calf tenderness Psychiatric exam: Present: normal affect, normal mood Skin exam: Present: warm, dry, intact, normal color. Absent: rash Course Vital Signs 08/20/20 08/20/20 08/20/20 06:42 06:56 06:57 Temperature 97.6 F Pulse Rate 85 Pulse Rate [ 86 83 Pulse Oximetery ] Respiratory 16 18 18 Rate Blood Pressure 132/79 Blood Pressure 135/85 [Right Arm Sitting] Blood Pressure [Right Arm Standing] Blood Pressure 126/81 [Right Arm Supine] O2 Sat by Pulse 100 100 100 Oximetry 08/20/20 06:58 Temperature Pulse Rate Pulse Rate [ 94 Pulse Oximetery ] Respiratory 20 Rate Blood Pressure Blood Pressure [Right Arm Sitting] Blood Pressure 122/84 [Right Arm Standing] Blood Pressure [Right Arm Supine] O2 Sat by Pulse 100 Oximetry EKG Findings - EKG Comments: EKG Findings:: Heart rate 74 bpm, FL interval 150 ms, QRS duration 70 ms, QT/QTc is 372/412 ms, PRT axis 3 -28 10, normal sinus rhythm, normal ECG - EKG Results: EKG: WNL, sinus rhythm Medical Decision Making - Medical Decision Making Patient is a 30-year-old female complaining of weakness and fatigue. CBC showed heme concentrated due to most likely dehydration. Rest of labs were within normal limits. UA was negative for UTI. Patient was given 1 L bolus of normal saline. Patient denied any pain or need for any pain medication. - Lab Data Result diagrams: 08/20/20 07:08/20/20 07:01 Lab Results 08/20/20 08/20/20 08/20/20 Range/Units 07:01 07:01 07:01 WBC 7.2 (3.8-10.6) k/uL RBC 5.58 H (3.80-5.40) m/uL Hgb 17.2 H (11.4-16.0) gm/dL Hct 48.4 H (34.0-46.0) % MCV 86.8 (80.0-100.0) fL MCH 30.8 (25.0-35.0) pg MCHC 35.6 (31.0-37.0) g/dL RDW 12.6 (11.5-15.5) % Plt Count 168 (150-450) k/uL MPV 8.6 Neutrophils % (Manual) 62 % Lymphocytes % (Manual) 29 % Monocytes % (Manual) 6 % Eosinophils % (Manual) 2 % Basophils % (Manual) 1 % Neutrophils # (Manual) 4.46 (1.3-7.7) k/uL Lymphocytes # (Manual) 2.09 (1.0-4.8) k/uL Monocytes # (Manual) 0.43 (0-1.0) k/uL Eosinophils # (Manual) 0.14 (0-0.7) k/uL Basophils # (Manual) 0.07 (0-0.2) k/uL Nucleated RBCs 0 (0-0) /100 WBC Manual Slide Review Performed Sodium 136 L (137-145) mmol/L Potassium 5.1 (3.5-5.1) mmol/L Chloride 102 (98-107) mmol/L Carbon Dioxide 28 (22-30) mmol/L Anion Gap 6 mmol/L BUN 13 (7-17) mg/dL Creatinine 0.60 (0.52-1.04) mg/dL Est GFR (CKD-EPI)AfAm >90 (>60 ml/min/1.73 sqM) Est GFR (CKD-EPI)NonAf >90 (>60 ml/min/1.73 sqM) Glucose 94 (74-99) mg/dL Plasma Lactic Acid Erik 1.1 (0.7-2.0) mmol/L Calcium 9.7 (8.4-10.2) mg/dL Total Bilirubin 0.5 (0.2-1.3) mg/dL AST 25 (14-36) U/L ALT 17 (4-34) U/L Alkaline Phosphatase 68 (38-126) U/L Total Protein 7.8 (6.3-8.2) g/dL Albumin 4.4 (3.5-5.0) g/dL Urine Color Urine Appearance (Clear) Urine pH (5.0-8.0) Ur Specific [place] (1.001-1.035) Urine Protein (Negative) Urine Glucose (UA) (Negative) Urine Ketones (Negative) Urine Blood (Negative) Urine Nitrite (Negative) Urine Bilirubin (Negative) Urine Urobilinogen (<2.0) mg/dL Ur Leukocyte Esterase (Negative) 08/20/20 Range/Units 07:57 WBC (3.8-10.6) k/uL RBC (3.80-5.40) m/uL Hgb (11.4-16.0) gm/dL Hct (34.0-46.0) % MCV (80.0-100.0) fL MCH (25.0-35.0) pg MCHC (31.0-37.0) g/dL RDW (11.5-15.5) % Plt Count (150-450) k/uL MPV Neutrophils % (Manual) % Lymphocytes % (Manual) % Monocytes % (Manual) % Eosinophils % (Manual) % Basophils % (Manual) % Neutrophils # (Manual) (1.3-7.7) k/uL Lymphocytes # (Manual) (1.0-4.8) k/uL Monocytes # (Manual) (0-1.0) k/uL Eosinophils # (Manual) (0-0.7) k/uL Basophils # (Manual) (0-0.2) k/uL Nucleated RBCs (0-0) /100 WBC Manual Slide Review Sodium (137-145) mmol/L Potassium (3.5-5.1) mmol/L Chloride (98-107) mmol/L Carbon Dioxide (22-30) mmol/L Anion Gap mmol/L BUN (7-17) mg/dL Creatinine (0.52-1.04) mg/dL Est GFR (CKD-EPI)AfAm (>60 ml/min/1.73 sqM) Est GFR (CKD-EPI)NonAf (>60 ml/min/1.73 sqM) Glucose (74-99) mg/dL Plasma Lactic Acid Erik (0.7-2.0) mmol/L Calcium (8.4-10.2) mg/dL Total Bilirubin (0.2-1.3) mg/dL AST (14-36) U/L ALT (4-34) U/L Alkaline Phosphatase (38-126) U/L Total Protein (6.3-8.2) g/dL Albumin (3.5-5.0) g/dL Urine Color Yellow Urine Appearance Clear (Clear) Urine pH 5.5 (5.0-8.0) Ur Specific [place] 1.019 (1.001-1.035) Urine Protein Negative (Negative) Urine Glucose (UA) Negative (Negative) Urine Ketones Negative (Negative) Urine Blood Negative (Negative) Urine Nitrite Negative (Negative) Urine Bilirubin Negative (Negative) Urine Urobilinogen <2.0 (<2.0) mg/dL Ur Leukocyte Esterase Negative (Negative) - EKG Data -: EKG Interpreted by Ia EKG shows normal: sinus rhythm Rate: normal EKG Comments: Heart rate 74 bpm, FL interval 150 ms, QRS duration 70 ms, QT/QTc is 372/412 ms, PRT axis 3 -28 10, normal sinus rhythm, normal ECG Disposition Clinical Impression: Dehydration Disposition: HOME SELF-CARE Condition: Stable Additional Instructions: Please return to the Emergency Department if symptoms worsen or any other concerns. Educated patient on importance of drinking plenty of water to avoid similar symptoms. Is patient prescribed a controlled substance at d/c from ED?: No Referrals: Kentrell Bell MD [Primary Care Provider] - 1-2 days Time of Disposition: 08:39
[2020-08-20 07:14] LABS: HCT 48.4 % (34.0-46.0); HGB 17.2 gm/dL (11.4-16.0); MCH 30.8 pg (25.0-35.0); MCHC 35.6 g/dL (31.0-37.0); MCV 86.8 fL (80.0-100.0); Mean Platelet Volume 8.6; Platelet Count 168 k/uL (150-450); RBC 5.58 m/uL (3.80-5.40); RDW 12.6 % (11.5-15.5); WBC 7.2 k/uL (3.8-10.6)
[2020-08-20 07:21] LABS: ALT 17 U/L (4-34); AST 25 U/L (14-36); African American GFR (CKD) >90 (>60 ml/min/1.73 sqM); Albumin 4.4 g/dL (3.5-5.0); Alkaline Phosphatase 68 U/L (38-126); Anion Gap 6 mmol/L; Blood Urea Nitrogen 13 mg/dL (7-17); Calcium 9.7 mg/dL (8.4-10.2); Carbon Dioxide 28 mmol/L (22-30); Chloride 102 mmol/L (98-107); Glucose 94 mg/dL (74-99); Non-African American GFR(CKD) >90 (>60 ml/min/1.73 sqM); Potassium 5.1 mmol/L (3.5-5.1); Sodium 136 mmol/L (137-145); Total Bilirubin 0.5 mg/dL (0.2-1.3); Total Protein 7.8 g/dL (6.3-8.2)
[2020-08-20 07:44] LABS: Basophils # (M) 0.07 k/uL (0-0.2); Eosinophils # (M) 0.14 k/uL (0-0.7); Lymphocytes # (M) 2.09 k/uL (1.0-4.8); Monocytes # (M) 0.43 k/uL (0-1.0); Neutrophils # (M) 4.46 k/uL (1.3-7.7); Neutrophils % (M) 62 %; Nucleated Red Blood Cells 0 /100 WBC (0-0); Total Cells Counted 100
[2020-08-20 08:13] LABS: Appearance,Urine Clear (Clear); Bilirubin,Urine Negative (Negative); Blood,Urine Negative (Negative); Color,Urine Yellow; Glucose,Urine (UA) Negative (Negative); Ketones,Urine Negative (Negative); Leukocyte Esterase,Urine Negative (Negative); Nitrite,Urine Negative (Negative); PH, Urine 5.5 (5.0-8.0); Protein,Urine Negative (Negative); Specific Gravity,Urine 1.019 (1.001-1.035); Urobilinogen,Urine <2.0 mg/dL (<2.0)
[2020-08-20 09:30] VITALS: BP 135/78; PULSE 80; RESP 16; TEMP 97.9
== END 2020-08-20 09:29 | disposition home or self-care (01) ==
LOC: EC 06:39
DX: E86.0 Dehydration (principal); F17.200 Nicotine dependence, unspecified, uncomplicated; Z88.0 Allergy status to penicillin; Z88.1 Allergy status to other antibiotic agents
CPT/HCPCS: 36415; 80053; 81003; 83605; 85025; 93005; 96360; 99285

== ENCOUNTER 2021-04-30 20:31 | Emergency (ER) | payer OTHER ==
[2021-04-30 20:57] VITALS: BP 115/74; PULSE 97; RESP 18; TEMP 99.7
[2021-04-30] MEDS ORDERED: IBUPROFEN 400 MG TAB PO STA (21:30)
--- NOTE | 2021-04-30 21:43 | ED ---
Fever HPI - General Chief Complaint: Fever Stated Complaint: Covid positive Time Seen by Provider: 04/30/21 21:07 Source: patient Mode of arrival: wheelchair Limitations: no limitations - History of Present Illness MD Complaint: fever, malaise, weakness Onset/Timin -: days(s) Context: sick contacts Associated Symptoms: chills, myalgias, headache, cough Treatments Prior to Arrival: "cold medicine" - Related Data Home Medications Medication Instructions Recorded Confirmed No Known Home Medications 04/30/21 04/30/21 Allergies Allergy/AdvReac Type Severity Reaction Status Date / Time amoxicillin [Amoxicillin] AdvReac Abdominal Verified 04/30/21 22:03 Pain ciprofloxacin [From Cipro] AdvReac itching, Verified 04/30/21 22:03 chest pain, swelling Review of Systems ROS Statement: Those systems with pertinent positive or pertinent negative responses have been documented in the HPI. ROS Other: All systems not noted in ROS Statement are negative. Constitutional: Reports: fever, chills, weakness Eyes: Denies: vision change Respiratory: Reports: cough. Denies: dyspnea, hemoptysis Cardiovascular: Denies: chest pain, palpitations, syncope Gastrointestinal: Denies: abdominal pain, nausea, vomiting, diarrhea Genitourinary: Denies: dysuria, hematuria Musculoskeletal: Reports: myalgia. Denies: back pain Skin: Denies: rash Neurological: Reports: headache. Denies: weakness, numbness, paresthesias Past Medical History Past Medical History: Pneumonia History of Any Multi-Drug Resistant Organisms: None Reported Past Surgical History: Tonsillectomy, Tubal Ligation Additional Past Surgical History / Comment(s): D & C, nasal surgery, laparoscopy Past Anesthesia/Blood Transfusion Reactions: No Reported Reaction Past Psychological History: No Psychological Hx Reported Smoking Status: Current every day smoker Past Alcohol Use History: None Reported Past Drug Use History: None Reported - Past Family History Mother Family Medical History: Hypertension General Exam Limitations: no limitations General appearance: alert, in no apparent distress Head exam: Present: atraumatic, normocephalic Eye exam: Present: normal appearance. Absent: scleral icterus, conjunctival injection Neck exam: Present: normal inspection, full ROM. Absent: meningismus Respiratory exam: Present: normal lung sounds bilaterally. Absent: respiratory distress, wheezes, rales, rhonchi, stridor Cardiovascular Exam: Present: regular rate, normal rhythm, normal heart sounds. Absent: systolic murmur, diastolic murmur, rubs, gallop GI/Abdominal exam: Present: soft. Absent: distended, tenderness, guarding, rebound, rigid, mass Extremities exam: Present: normal inspection, normal capillary refill. Absent: pedal edema, calf tenderness Back exam: Present: normal inspection. Absent: CVA tenderness (R), CVA tenderness (L) Neurological exam: Present: alert Skin exam: Present: warm, dry, intact, normal color. Absent: rash Course Vital Signs 04/30/21 20:53 Temperature 99.7 F H Pulse Rate 97 Respiratory 18 Rate Blood Pressure 115/74 O2 Sat by Pulse 97 Oximetry Disposition Clinical Impression: COVID-19 Disposition: HOME SELF-CARE Condition: Good Instructions (If sedation given, give patient instructions): Coronavirus Disease 2019 (COVID-19) Is patient prescribed a controlled substance at d/c from ED?: No Referrals: Kentrell Bell MD [Primary Care Provider] - 1-2 days
[2021-04-30] MEDS ORDERED: SODIUM CHLORIDE 0.9% 1,000 ML IV ONE (21:44)
[2021-04-30] MEDS ORDERED: CASIRIVIMAB/IMDEVIMAB (EUA) 1,200 MG in SODIUM CHLORIDE 0.9% 100 ML IVPB ONE (22:00)
[2021-04-30] MEDS ORDERED: SODIUM CHLORIDE 0.9% 50 ML IVPB ONE (22:00)
== END 2021-05-01 00:14 | disposition home or self-care (01) ==
LOC: EC 20:31
DX: U07.1 COVID-19 (principal); F17.200 Nicotine dependence, unspecified, uncomplicated; Z88.0 Allergy status to penicillin; Z88.1 Allergy status to other antibiotic agents; Z82.49 Family history of ischemic heart disease and other diseases of the circulatory system
CPT/HCPCS: 99283; 96365; 96361; Q0243

== ENCOUNTER 2021-11-15 17:53 | Emergency (ER) | payer OTHER ==
[2021-11-15 18:07] VITALS: RESP 18; TEMP 97.6
[2021-11-15] MEDS ORDERED: SODIUM CHLORIDE 0.9% 1,000 ML IV STA (18:20)
[2021-11-15] MEDS ORDERED: KETOROLAC 15 MG/ML 1 ML VIAL IVP STA (18:20)
[2021-11-15] MEDS ORDERED: ONDANSETRON 4 MG/2 ML VIAL IVP STA (18:20)
--- NOTE | 2021-11-15 18:25 | ED ---
General Adult HPI - General Chief complaint: Nausea/Vomiting/Diarrhea Stated complaint: N/V/D, Headache Time Seen by Provider: 11/15/21 18:15 Source: patient, RN notes reviewed, old records reviewed Mode of arrival: ambulatory - History of Present Illness Initial comments: 31-year-old female presents to the emergency room with family member complaining of 3 days of headache, chills, nausea vomiting diarrhea. Patient states that she has not checked her temperature at home to see if she has a fever. She did take an at home Covid test that was negative. 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 She states that she now has left-sided temporal headache. She denies any medical history. She takes Lexapro daily -: days(s) (3) Location: chest, abdomen Severity scale (1-10): 5 Quality: aching Consistency: constant Associated Symptoms: chest pain, fever/chills, headaches, malaise, nausea/vomiting - Related Data Home Medications Medication Instructions Recorded Confirmed Albuterol Nebulized [Ventolin 2.5 mg INHALATION RT-QID PRN 11/15/21 11/15/21 Nebulized] Albuterol Sulfate [Proair Hfa] 2 puff INHALATION RT-QID PRN 11/15/21 11/15/21 Fluticasone/Salmeterol [Advair 1 puff INHALATION RT-BID 11/15/21 11/15/21 250-50 Diskus] Omeprazole 40 mg PO DAILY 11/15/21 11/15/21 Previous Rx's Medication Instructions Recorded Omeprazole [PriLOSEC] 40 mg PO DAILY #14 cap 11/15/21 Allergies Allergy/AdvReac Type Severity Reaction Status Date / Time amoxicillin [Amoxicillin] AdvReac Abdominal Verified 11/15/21 19:05 Pain ciprofloxacin [From Cipro] AdvReac itching, Verified 11/15/21 19:05 chest pain, swelling Review of Systems ROS Statement: Those systems with pertinent positive or pertinent negative responses have been documented in the HPI. ROS Other: All systems not noted in ROS Statement are negative. Past Medical History Past Medical History: Pneumonia History of Any Multi-Drug Resistant Organisms: None Reported Past Surgical History: Tonsillectomy, Tubal Ligation Additional Past Surgical History / Comment(s): D & C, nasal surgery, laparoscopy Past Anesthesia/Blood Transfusion Reactions: No Reported Reaction Past Psychological History: No Psychological Hx Reported Smoking Status: Current every day smoker Past Alcohol Use History: None Reported Past Drug Use History: None Reported - Past Family History Mother Family Medical History: Hypertension General Exam General appearance: alert, in no apparent distress Eye exam: Present: normal appearance. Absent: scleral icterus, conjunctival injection, periorbital swelling ENT exam: Present: normal exam, normal oropharynx, mucous membranes moist Neck exam: Absent: tenderness, meningismus Respiratory exam: Present: normal lung sounds bilaterally. Absent: respiratory distress Cardiovascular Exam: Present: regular rate, normal rhythm. Absent: JVD GI/Abdominal exam: Present: soft, hyperactive bowel sounds. Absent: distended, tenderness, guarding, rebound, rigid Extremities exam: Present: normal inspection, normal capillary refill. Absent: pedal edema Back exam: Present: normal inspection. Absent: tenderness, CVA tenderness (R), CVA tenderness (L), rash noted Neurological exam: Present: alert, oriented X3 Psychiatric exam: Present: normal affect, normal mood Skin exam: Present: warm, dry, normal color. Absent: rash, cyanosis, diaphoretic, pallor Course Vital Signs 11/15/21 11/15/21 18:02 21:24 Temperature 97.6 F Pulse Rate 88 68 Respiratory 18 18 Rate Blood Pressure 119/90 119/57 O2 Sat by Pulse 98 97 Oximetry - Reevaluation(s) Reevaluation #1: 11/15/21 20:19 Labs are unremarkable. Patient states she still has epigastric abdominal pain. No vomiting in the emergency room. She'll be given Pepcid and GI cocktail. Time: 20:19 Medical Decision Making - Medical Decision Making 31-year-old female presents with 3 days of headache, fever, chills and vomiting. She denies any hematochezia or hematemesis. No dysuria or vaginal discharge. Abdomen soft and nontender. There is no leukocytosis. Hemoglobin and hematocrit are stable. Urine shows 1+ ketones, was sent for culture. Influenza A and covid swabs are negative. Patient was given Toradol, Pepcid, Zofran, GI cocktail and IV fluids. This is likely a viral illness. She is feeling better at discharge. She was directed to follow-up with the primary care doctor and return with any new or concerning symptoms. Patient is agreeable to this plan of care. - Lab Data Result diagrams: 11/15/21 18:30 11/15/21 18:30 Lab Results 11/15/21 11/15/21 11/15/21 Range/Units 18:30 18:30 18:30 WBC 4.0 (3.8-10.6) k/uL RBC 5.40 (3.80-5.40) m/uL Hgb 16.6 H (11.4-16.0) gm/dL Hct 48.4 H (34.0-46.0) % MCV 89.6 (80.0-100.0) fL MCH 30.7 (25.0-35.0) pg MCHC 34.3 (31.0-37.0) g/dL RDW 13.3 (11.5-15.5) % Plt Count 160 (150-450) k/uL MPV 10.4 Neutrophils % (Manual) 76 % Lymphocytes % (Manual) 15 % Monocytes % (Manual) 8 % Eosinophils % (Manual) 1 % Neutrophils # (Manual) 3.04 (1.3-7.7) k/uL Lymphocytes # (Manual) 0.60 L (1.0-4.8) k/uL Monocytes # (Manual) 0.32 (0-1.0) k/uL Eosinophils # (Manual) 0.04 (0-0.7) k/uL Nucleated RBCs 0 (0-0) /100 WBC Manual Slide Review Performed Large Platelets Present RBC Morphology Normal Sodium 135 L (137-145) mmol/L Potassium 3.7 (3.5-5.1) mmol/L Chloride 102 (98-107) mmol/L Carbon Dioxide 22 (22-30) mmol/L Anion Gap 11 mmol/L BUN 14 (7-17) mg/dL Creatinine 0.66 (0.52-1.04) mg/dL Est GFR (CKD-EPI)AfAm >90 (>60 ml/min/1.73 sqM) Est GFR (CKD-EPI)NonAf >90 (>60 ml/min/1.73 sqM) Glucose 93 (74-99) mg/dL Calcium 9.2 (8.4-10.2) mg/dL Total Bilirubin 0.6 (0.2-1.3) mg/dL AST 33 (14-36) U/L ALT 19 (4-34) U/L Alkaline Phosphatase 57 (38-126) U/L Total Protein 7.9 (6.3-8.2) g/dL Albumin 4.4 (3.5-5.0) g/dL Amylase 60 (30-110) U/L Lipase 78 (23-300) U/L Urine Color Light Red Urine Appearance Cloudy H (Clear) Urine pH 5.5 (5.0-8.0) Ur Specific [place] 1.029 (1.001-1.035) Urine Protein 1+ H (Negative) Urine Glucose (UA) Negative (Negative) Urine Ketones 1+ H (Negative) Urine Blood Large H (Negative) Urine Nitrite Negative (Negative) Urine Bilirubin Negative (Negative) Urine Urobilinogen <2.0 (<2.0) mg/dL Ur Leukocyte Esterase Trace H (Negative) Urine RBC >182 H (0-5) /hpf Urine WBC 2 (0-5) /hpf Urine Bacteria Rare H (None) /hpf Urine Mucus Many H (None) /hpf Urine HCG, Qual (Not Detectd) Influenza Type A (PCR) (Not Detectd) Influenza Type B (PCR) (Not Detectd) RSV (PCR) (Not Detectd) SARS-CoV-2 (PCR) (Not Detectd) 11/15/21 11/15/21 Range/Units 18:30 18:30 WBC (3.8-10.6) k/uL RBC (3.80-5.40) m/uL Hgb (11.4-16.0) gm/dL Hct (34.0-46.0) % MCV (80.0-100.0) fL MCH (25.0-35.0) pg MCHC (31.0-37.0) g/dL RDW (11.5-15.5) % Plt Count (150-450) k/uL MPV Neutrophils % (Manual) % Lymphocytes % (Manual) % Monocytes % (Manual) % Eosinophils % (Manual) % Neutrophils # (Manual) (1.3-7.7) k/uL Lymphocytes # (Manual) (1.0-4.8) k/uL Monocytes # (Manual) (0-1.0) k/uL Eosinophils # (Manual) (0-0.7) k/uL Nucleated RBCs (0-0) /100 WBC Manual Slide Review Large Platelets RBC Morphology Sodium (137-145) mmol/L Potassium (3.5-5.1) mmol/L Chloride (98-107) mmol/L Carbon Dioxide (22-30) mmol/L Anion Gap mmol/L BUN (7-17) mg/dL Creatinine (0.52-1.04) mg/dL Est GFR (CKD-EPI)AfAm (>60 ml/min/1.73 sqM) Est GFR (CKD-EPI)NonAf (>60 ml/min/1.73 sqM) Glucose (74-99) mg/dL Calcium (8.4-10.2) mg/dL Total Bilirubin (0.2-1.3) mg/dL AST (14-36) U/L ALT (4-34) U/L Alkaline Phosphatase (38-126) U/L Total Protein (6.3-8.2) g/dL Albumin (3.5-5.0) g/dL Amylase (30-110) U/L Lipase (23-300) U/L Urine Color Urine Appearance (Clear) Urine pH (5.0-8.0) Ur Specific [place] (1.001-1.035) Urine Protein (Negative) Urine Glucose (UA) (Negative) Urine Ketones (Negative) Urine Blood (Negative) Urine Nitrite (Negative) Urine Bilirubin (Negative) Urine Urobilinogen (<2.0) mg/dL Ur Leukocyte Esterase (Negative) Urine RBC (0-5) /hpf Urine WBC (0-5) /hpf Urine Bacteria (None) /hpf Urine Mucus (None) /hpf Urine HCG, Qual Not Detected (Not Detectd) Influenza Type A (PCR) Not Detected (Not Detectd) Influenza Type B (PCR) Not Detected (Not Detectd) RSV (PCR) Not Detected (Not Detectd) SARS-CoV-2 (PCR) Not Detected (Not Detectd) Disposition Clinical Impression: Abdominal pain Disposition: HOME SELF-CARE Instructions (If sedation given, give patient instructions): Abdominal Pain (ED) Additional Instructions: Return to the emergency room with any new or concerning symptoms including right lower quadrant pain, fevers, persistent nausea or vomiting. Take omeprazole as prescribed which may help with epigastric pain. Follow-up with your primary care doctor this week to discuss your symptoms and further plan of care. Prescriptions: Omeprazole [PriLOSEC] 40 mg PO DAILY #14 cap Is patient prescribed a controlled substance at d/c from ED?: No Referrals: Kentrell Bell MD [Primary Care Provider] - 1-2 days Time of Disposition: 21:20
[2021-11-15 19:05] LABS: HCT 48.4 % (34.0-46.0); HGB 16.6 gm/dL (11.4-16.0); MCH 30.7 pg (25.0-35.0); MCHC 34.3 g/dL (31.0-37.0); MCV 89.6 fL (80.0-100.0); Mean Platelet Volume 10.4; Platelet Count 160 k/uL (150-450); RDW 13.3 % (11.5-15.5)
[2021-11-15 19:06] LABS: ALT 19 U/L (4-34); AST 33 U/L (14-36); African American GFR (CKD) >90 (>60 ml/min/1.73 sqM); Albumin 4.4 g/dL (3.5-5.0); Alkaline Phosphatase 57 U/L (38-126); Amylase 60 U/L (30-110); Anion Gap 11 mmol/L; Blood Urea Nitrogen 14 mg/dL (7-17); Calcium 9.2 mg/dL (8.4-10.2); Carbon Dioxide 22 mmol/L (22-30); Chloride 102 mmol/L (98-107); Glucose 93 mg/dL (74-99); Lipase 78 U/L (23-300); Non-African American GFR(CKD) >90 (>60 ml/min/1.73 sqM); Potassium 3.7 mmol/L (3.5-5.1); Sodium 135 mmol/L (137-145); Total Bilirubin 0.6 mg/dL (0.2-1.3); Total Protein 7.9 g/dL (6.3-8.2)
[2021-11-15 19:35] LABS: Eosinophils # (M) 0.04 k/uL (0-0.7); Monocytes # (M) 0.32 k/uL (0-1.0); Neutrophils # (M) 3.04 k/uL (1.3-7.7); Neutrophils % (M) 76 %; Nucleated Red Blood Cells 0 /100 WBC (0-0); Total Cells Counted 100
[2021-11-15 19:38] LABS: Large Platelets Present; RBC Morphology Normal
[2021-11-15 20:11] LABS: Appearance,Urine Cloudy (Clear); Bacteria,Urine Rare /hpf; Bilirubin,Urine Negative (Negative); Blood,Urine Large (Negative); Color,Urine Light Red; Glucose,Urine (UA) Negative (Negative); Ketones,Urine 1+ (Negative); Leukocyte Esterase,Urine Trace (Negative); Mucus,Urine Many /hpf; Nitrite,Urine Negative (Negative); PH, Urine 5.5 (5.0-8.0); Protein,Urine 1+ (Negative); RBC,Urine >182 /hpf (0-5); Specific Gravity,Urine 1.029 (1.001-1.035); Urobilinogen,Urine <2.0 mg/dL (<2.0); WBC,Urine 2 /hpf (0-5)
[2021-11-15] MEDS ORDERED: MAG HYDROX/AL HYDROX/SIMETH 30 ML, HYOSCYAMINE ELIXIR 10 ML, LIDOCAINE VISCOUS 2% 10 ML PO STA ×3 (20:18)
[2021-11-15] MEDS ORDERED: FAMOTIDINE 20 MG/2 ML VIAL IV STA (20:18)
[2021-11-15 21:26] VITALS: BP 119/57; PULSE 68
== END 2021-11-15 21:51 | disposition home or self-care (01) ==
LOC: EC 17:53
DX: R10.9 Unspecified abdominal pain (principal); F17.200 Nicotine dependence, unspecified, uncomplicated; Z20.822 Contact with and (suspected) exposure to COVID-19; Z88.1 Allergy status to other antibiotic agents; Z88.0 Allergy status to penicillin
CPT/HCPCS: 36415; 80053; 82150; 83690; 85025; 81001; 81025; 87636; 96374; 96375; 96361; 99284; J2405; J1885

== ENCOUNTER 2022-01-22 17:07 | Emergency (ER) | payer OTHER ==
[2022-01-22 18:05] VITALS: BP 140/66; PULSE 77; RESP 20; TEMP 98
--- NOTE | 2022-01-22 18:44 | XR ---
EXAMINATION TYPE: XR ankle complete RT DATE OF EXAM: 01/22/2022 COMPARISON: NONE HISTORY: Pain TECHNIQUE: 3 view FINDINGS: Ankle mortise is anatomic. There is soft tissue swelling over the lateral malleolus. Ankle mortise is anatomic. There is a moderate plantar calcaneal spurring. IMPRESSION: Calcaneal spurring. Soft tissue swelling. No fracture.
--- NOTE | 2022-01-22 19:10 | ED ---
Lower Extremity Injury HPI - General Chief Complaint: Extremity Injury, Lower Stated Complaint: ankle injury Source: patient Mode of arrival: ambulatory Limitations: no limitations - History of Present Illness Initial Comments: Patient is a 31-year-old female presents the emergency room with complaints of right ankle pain and swelling. She reports that approximately 3 weeks ago she was hiking with her daughter and while hiking she rolled her ankle with her foot clasping inward. After the injury she followed up with her primary care provider who placed her in an Leo wrap and advised her to elevate, ice and rest when possible. She was given tramadol as needed for pain. Earlier in the day today she was walking with a Leo wrap on her ankle and took a step in which her foot again buckled with her landing on her lateral medialis region. Since that time it has been swollen, painful to the touch and she has been unable to sumeet her ankle and inversion is limited. She denies any other complaints or concerns. She denies any significant past medical history. - Related Data Home Medications Medication Instructions Recorded Confirmed Albuterol Nebulized [Ventolin 2.5 mg INHALATION RT-QID PRN 11/15/21 11/15/21 Nebulized] Albuterol Sulfate [Proair Hfa] 2 puff INHALATION RT-QID PRN 11/15/21 11/15/21 Fluticasone Propion/Salmeterol 1 puff INHALATION RT-BID 11/15/21 11/15/21 [Advair 250-50 Diskus] Omeprazole 40 mg PO DAILY 11/15/21 11/15/21 Previous Rx's Medication Instructions Recorded Omeprazole [PriLOSEC] 40 mg PO DAILY #14 cap 11/15/21 Allergies Allergy/AdvReac Type Severity Reaction Status Date / Time amoxicillin [Amoxicillin] AdvReac Abdominal Verified 01/22/22 18:05 Pain ciprofloxacin [From Cipro] AdvReac itching, Verified 01/22/22 18:05 chest pain, swelling Review of Systems ROS Statement: Those systems with pertinent positive or pertinent negative responses have been documented in the HPI. ROS Other: All systems not noted in ROS Statement are negative. Past Medical History Past Medical History: Pneumonia History of Any Multi-Drug Resistant Organisms: None Reported Past Surgical History: Tonsillectomy, Tubal Ligation Additional Past Surgical History / Comment(s): D & C, nasal surgery, laparoscopy Past Anesthesia/Blood Transfusion Reactions: No Reported Reaction Past Psychological History: No Psychological Hx Reported Smoking Status: Current every day smoker Past Alcohol Use History: None Reported Past Drug Use History: None Reported - Past Family History Mother Family Medical History: Hypertension General Exam Limitations: no limitations General appearance: alert, in no apparent distress Head exam: Present: atraumatic, normocephalic, normal inspection Eye exam: Present: normal appearance, PERRL, EOMI. Absent: scleral icterus, conjunctival injection, periorbital swelling ENT exam: Present: normal exam, mucous membranes moist Neck exam: Present: normal inspection Respiratory exam: Absent: respiratory distress, accessory muscle use Right Ankle exam: Present: tenderness, swelling. Absent: full ROM, abrasion, ecchymosis, erythema Neurovascular tendon exam: Present: no vascular compromise Neurological exam: Present: alert, oriented X3, CN II-XII intact Psychiatric exam: Present: normal affect, normal mood Skin exam: Present: warm, dry, intact, normal color. Absent: rash Course Vital Signs 01/22/22 18:03 Temperature 98.0 F Pulse Rate 77 Respiratory 20 Rate Blood Pressure 140/66 O2 Sat by Pulse 98 Oximetry Procedures - Orthopedic Splinting/Casting Injury #1 Side: right Lower Extremity Injury Location: ankle Lower Extremity Immobilizer: posterior splint, Leo wrap, synthetic pre-padded splint Other Orthopedic Equipment: crutches Medical Decision Making - Medical Decision Making X-ray negative for fracture. Soft tissues were swelling noted. Incidental calcaneal spur found. No neurovascular compromise no need for further diagnostic imaging at this time. Will plan for splinting with no weightbearing and orthopedic follow-up. Will give morphine for pain prior to splinting joint. Patient improved with IM morphine. Will give starter Tylenol 3 pack to utilize for pain. Splinting with posterior leg lower limbs splint applied with Leo wrapped. Tolerated procedure well neurovascularly intact pre-and postprocedure. Will give information for Dr. Fowler's office to call for follow-up appointment. Advised nonweightbearing until cleared by orthopedic. Case discussed with Dr. Ruiz - Radiology Data Radiology results: report reviewed, image reviewed Complete x-ray of right ankle shows calcaneal spur. Soft tissue swelling. No fracture. Disposition Clinical Impression: Sprain and strain of ankle Disposition: HOME SELF-CARE Condition: Fair Instructions (If sedation given, give patient instructions): Ankle Sprain (ED) Additional Instructions: He denies Tylenol 3 starter pack along with ibuprofen as needed for pain. Maintain splinting and nonweight bearing. Elevate and ice when possible. Please call tomorrow to schedule an appointment with orthopedist and follow up with your primary care provider. Please return to the Emergency Department if symptoms worsen or any other concerns. Is patient prescribed a controlled substance at d/c from ED?: No Referrals: Kentrell Bell MD [Primary Care Provider] - 1-2 days Gregory Fowler MD [Medical Doctor] - 1-2 days Time of Disposition: 20:46
[2022-01-22] MEDS ORDERED: MORPHINE SULFATE 4 MG/ML SYRINGE IM STA (19:40)
[2022-01-22] MEDS ORDERED: ACET/COD 300 MG/30 MG STARTER PACK 6 TAB BTL PO STA (20:40)
== END 2022-01-22 20:58 | disposition home or self-care (01) ==
LOC: EC 17:07
DX: S93.401A Sprain of unspecified ligament of right ankle, initial encounter (principal); S96.911A Strain of unspecified muscle and tendon at ankle and foot level, right foot, initial encounter; F17.200 Nicotine dependence, unspecified, uncomplicated; X50.1XXA Overexertion from prolonged static or awkward postures, initial encounter
CPT/HCPCS: 73610; 29515; 99283; 96372; J2270

== ENCOUNTER 2022-03-15 22:35 | Emergency (ER) | payer OTHER ==
[2022-03-15 22:39] VITALS: TEMP 98.6
--- NOTE | 2022-03-15 22:49 | ED ---
Chest Pain HPI - General Chief Complaint: Chest Pain Stated Complaint: Chest Pain Time Seen by Provider: 03/15/22 22:45 Source: patient Mode of arrival: ambulatory Limitations: no limitations - History of Present Illness Initial Comments: This patient is a 31-year-old woman who presents with complaint of chest pains that is been going on for years. She states she was told it was due to a leaking heart valve. She states that for the past 2 weeks it has been more prominent. She was seen here 2 days ago had workup and sent home. The patient states that the symptoms tend to improve with Ativan. MD Complaint: chest pain -: month(s) Onset: during rest Pain Location: left chest Pain Radiation: LUE, neck Severity: moderate Quality: tightness Consistency: constant Improves With: nothing Worsens With: other (Stress) Treatments Prior to Arrival: none - Related Data Home Medications Medication Instructions Recorded Confirmed Albuterol Nebulized [Ventolin 2.5 mg INHALATION RT-QID PRN 11/15/21 11/15/21 Nebulized] Albuterol Sulfate [Proair Hfa] 2 puff INHALATION RT-QID PRN 11/15/21 11/15/21 Fluticasone Propion/Salmeterol 1 puff INHALATION RT-BID 11/15/21 11/15/21 [Advair 250-50 Diskus] Omeprazole 40 mg PO DAILY 11/15/21 11/15/21 Previous Rx's Medication Instructions Recorded Omeprazole [PriLOSEC] 40 mg PO DAILY #14 cap 11/15/21 LORazepam [Ativan] 0.5 mg PO TID PRN #9 tab 03/13/22 Allergies Allergy/AdvReac Type Severity Reaction Status Date / Time amoxicillin [Amoxicillin] AdvReac Abdominal Verified 03/15/22 22:36 Pain ciprofloxacin [From Cipro] AdvReac itching, Verified 03/15/22 22:36 chest pain, swelling Review of Systems ROS Statement: Those systems with pertinent positive or pertinent negative responses have been documented in the HPI. ROS Other: All systems not noted in ROS Statement are negative. Constitutional: Denies: fever, chills Respiratory: Denies: cough, dyspnea Cardiovascular: Reports: as per HPI, chest pain. Denies: palpitations, dyspnea on exertion, orthopnea, edema Gastrointestinal: Denies: abdominal pain, nausea, vomiting, diarrhea Genitourinary: Denies: dysuria, hematuria Musculoskeletal: Denies: back pain Skin: Denies: rash Neurological: Denies: headache, weakness Psychiatric: Reports: anxiety EKG Findings - EKG Results: EKG: interpreted by CONOR, sinus rhythm (Rate 92 bpm), normal ST/T - Blocks, [place], Hypertrophy, ST Abn: AV and intraventricular conduction: right bundle branch block (fixed/intermittent, complete/incomplete) (Incomplete) QRS axis and voltage: left axis deviation (-30 to -90) Past Medical History Past Medical History: Pneumonia Additional Past Medical History / Comment(s): heart valve problem History of Any Multi-Drug Resistant Organisms: None Reported Past Surgical History: Tonsillectomy, Tubal Ligation Additional Past Surgical History / Comment(s): D & C, nasal surgery, laparoscopy Past Anesthesia/Blood Transfusion Reactions: No Reported Reaction Past Psychological History: No Psychological Hx Reported Smoking Status: Current every day smoker Past Alcohol Use History: None Reported Past Drug Use History: Marijuana - Past Family History Mother Family Medical History: Hypertension General Exam Limitations: no limitations General appearance: alert, in no apparent distress Head exam: Present: atraumatic, normocephalic Eye exam: Present: normal appearance. Absent: scleral icterus, conjunctival injection Neck exam: Present: normal inspection Respiratory exam: Present: normal lung sounds bilaterally. Absent: respiratory distress, wheezes, rales, rhonchi, stridor, chest wall tenderness, accessory muscle use Cardiovascular Exam: Present: regular rate, normal rhythm, normal heart sounds. Absent: systolic murmur, diastolic murmur, rubs, gallop GI/Abdominal exam: Present: soft. Absent: distended, tenderness, guarding, rebound, rigid, mass Extremities exam: Present: normal inspection, normal capillary refill. Absent: pedal edema, calf tenderness Back exam: Present: normal inspection Neurological exam: Present: alert Skin exam: Present: warm, dry, intact, normal color. Absent: rash Course Vital Signs 03/15/22 03/16/22 22:37 00:59 Temperature 98.6 F Pulse Rate 92 77 Respiratory 16 15 Rate Blood Pressure 197/92 146/73 O2 Sat by Pulse 98 99 Oximetry Disposition Clinical Impression: Chest pain Disposition: HOME SELF-CARE Condition: Good Instructions (If sedation given, give patient instructions): Chest Pain (ED) Is patient prescribed a controlled substance at d/c from ED?: No Referrals: Kentrell Bell MD [Primary Care Provider] - 1-2 days
[2022-03-15] MEDS ORDERED: LORazepam 2 MG/ML INJ IV STA (23:20)
[2022-03-15 23:55] LABS: HCT 45.8 % (34.0-46.0); HGB 15.2 gm/dL (11.4-16.0); MCH 29.4 pg (25.0-35.0); MCHC 33.2 g/dL (31.0-37.0); MCV 88.3 fL (80.0-100.0); Mean Platelet Volume 9.4; Platelet Count 218 k/uL (150-450); RBC 5.19 m/uL (3.80-5.40); RDW 12.8 % (11.5-15.5)
[2022-03-16] LABS: INR 0.9 (<1.2); Partial Thromboplastin Time 23.9 sec (22.0-30.0)
[2022-03-16 00:19] LABS: ALT 16 U/L (4-34); AST 27 U/L (14-36); African American GFR (CKD) >90 (>60 ml/min/1.73 sqM); Albumin 4.3 g/dL (3.5-5.0); Alkaline Phosphatase 83 U/L (38-126); Amylase 64 U/L (30-110); Anion Gap 12 mmol/L; Blood Urea Nitrogen 18 mg/dL (7-17); Calcium 9.2 mg/dL (8.4-10.2); Carbon Dioxide 23 mmol/L (22-30); Chloride 102 mmol/L (98-107); Glucose 91 mg/dL (74-99); Lipase 122 U/L (23-300); Magnesium 1.8 mg/dL (1.6-2.3); Non-African American GFR(CKD) >90 (>60 ml/min/1.73 sqM); Potassium 3.7 mmol/L (3.5-5.1); Sodium 137 mmol/L (137-145); Total Bilirubin 0.2 mg/dL (0.2-1.3); Total Protein 7.4 g/dL (6.3-8.2)
[2022-03-16 00:22] LABS: Eosinophils # (M) 0.21 k/uL (0-0.7); Lymphocytes # (M) 2.73 k/uL (1.0-4.8); Monocytes # (M) 0.77 k/uL (0-1.0); Neutrophils # (M) 3.29 k/uL (1.3-7.7); Neutrophils % (M) 47 %; Nucleated Red Blood Cells 0 /100 WBC (0-0); Total Cells Counted 100
--- NOTE | 2022-03-16 00:41 | XR ---
EXAMINATION TYPE: XR chest 2V DATE OF EXAM: 03/16/2022 COMPARISON: 03/13/2022 HISTORY: Chest pain TECHNIQUE: 2 views FINDINGS: Heart and mediastinum are normal. Lungs are clear. Diaphragm is normal. Bony thorax is inta ct. IMPRESSION: Normal chest. No change.
[2022-03-16 01:00] VITALS: RESP 15
--- NOTE | 2022-03-16 01:22 | CT ---
EXAMINATION TYPE: CT chest angio for PE DATE OF EXAM: 03/16/2022 COMPARISON: 12/20/2014 HISTORY: ELEVATED D DIMER CT DLP: 3191 mGycm Automated exposure control for dose reduction was used. CONTRAST: Performed with IV Contrast, patient injected with 80ML mL of Isovue 370. There are Three-D postprocessed images. The lungs are clear of consolidation. No pleural effusion. Heart size is normal. No pericardial There is no mediastinal adenopathy. There are no hilar masses. Thoracic aorta is intact. No aneurysm or dissection. There is normal contrast opacification of the pulmonary arteries. No filling defect. Upper abdominal soft tissues are intact. Thoracic spine is intact. No compression fracture. Sternum is intact. IMPRESSION: Negative exam. No evidence of pulmonary embolism.
[2022-03-16] MEDS ORDERED: KETOROLAC 15 MG/ML 1 ML VIAL IVP STA (01:47)
[2022-03-16 02:13] VITALS: BP 139/66; PULSE 87
== END 2022-03-16 02:47 | disposition home or self-care (01) ==
LOC: EC 22:35
DX: R07.89 Other chest pain (principal); I45.10 Unspecified right bundle-branch block; F17.200 Nicotine dependence, unspecified, uncomplicated; Z88.0 Allergy status to penicillin; Z88.1 Allergy status to other antibiotic agents
CPT/HCPCS: 99285 ×2; 96374 ×2; 96375 ×2; 36415; 93005; 85379; 80053; 82150; 83690; 83735; 84484; 85025; 85610; 85730; 71046; 71275; J2060; J1885; Q9967

== ENCOUNTER → 2022-04-17 | Outpatient (CLI) | payer OTHER ==
--- NOTE | 2022-04-17 17:39 | CA ---
Transthoracic Echo Report Name: Johana Arredondo Age: 31 Gender: F : 1990 Exam Date: 04/17/2022 14:58 Exam Location: [place] [facility] Ht (in): 62 Wt (lb): 190 Ordering Physician: Kentrell Bell MD Attending/Referring Phys: Sangeeta Coombs [facility] Certification Engineer Denia Dunlap RDCS Procedure CPT: Indications: R00.2 palpitations Cardiac Hx: Technical Quality: Fair Contrast 1: Total Dose (mL): Contrast 2: Total Dose (mL): MEASUREMENTS (Male / Female) Normal Values 2D ECHO LV Diastolic Diameter PLAX 3.9 cm 4.2 - 5.9 / 3.9 - 5.3 cm LV Systolic Diameter PLAX 2.7 cm IVS Diastolic Thickness 1.2 cm 0.6 - 1.0 / 0.6 - 0.9 cm LVPW Diastolic Thickness 1.0 cm 0.6 - 1.0 / 0.6 - 0.9 cm LV Relative Wall Thickness 0.6 RV Internal Dim ED PLAX 2.7 cm LA Systolic Diameter LX 3.2 cm 3.0 - 4.0 / 2.7 - 3.8 cm LA Volume 46.3 cm??? 18 - 58 / 22 - 52 cm??? M-MODE Aortic Root Diameter MM 2.7 cm MV E Point Septal Separation 0.5 cm AV Cusp Separation MM 1.6 cm DOPPLER AV Peak Velocity 131.8 cm/s AV Peak Gradient 7.0 mmHg MV Area PHT 3.3 cm??? Mitral E Point Velocity 79.1 cm/s Mitral A Point Velocity 76.4 cm/s Mitral E to A Ratio 1.0 MV Deceleration Time 229.4 ms TR Peak Velocity 202.0 cm/s TR Peak Gradient 16.3 mmHg Right Ventricular Systolic Press 21.1 mmHg FINDINGS Left Ventricle Left ventricular ejection fraction is estimated at 60-65 %. Left ventricular cavity size normal. Borderline left ventricular hypertrophy. Right Ventricle Normal right ventricular size and function. Right ventricular systolic pressure within normal limits. Right Atrium Normal right atrial size. Left Atrium Normal left atrial size. No evidence for an atrial septal defect. Mitral Valve Structurally normal mitral valve. Trace mitral regurgitation. Aortic Valve Trileaflet aortic valve. No aortic valve stenosis or regurgitation. Tricuspid Valve Trace to mild tricuspid regurgitation. Pulmonic Valve Pulmonic valve not well visualized. Pericardium Normal pericardium. No pericardial effusion. Aorta Normal size aortic root and proximal ascending aorta. CONCLUSIONS Normal LV systolic function Previewed by: Dr. Alfonzo Ng MD (Electronically Signed) Final Date: 17 April 2022 17:38
== END | disposition home or self-care (01) ==
LOC: RADECHMAIN 14:49
PROVIDERS: ATTEND Family Medicine
DX: I08.1 Rheumatic disorders of both mitral and tricuspid valves (principal); R00.2 Palpitations
CPT/HCPCS: 93306

== ENCOUNTER → 2022-04-26 | Outpatient (CLI) | payer OTHER ==
--- NOTE | 2022-04-26 14:45 | US ---
EXAMINATION TYPE: US kidneys/renal and bladder DATE OF EXAM: 04/26/2022 COMPARISON: [facility] CT abdomen and pelvis September 10, 2016 CLINICAL HISTORY: R31.1 BENIGN ESSENTIAL MICROSCOPIC HEMATURIA. microscopic hematuria, pre bladder grady spension surgery EXAM MEASUREMENTS: Right Kidney: 10.5 x 5.7 x 4.9 cm Left Kidney: 10.3 x 4.9 x 6.3 cm Right Kidney: No hydronephrosis or masses seen Left Kidney: No hydronephrosis or masses seen Bladder: wnl Bilateral Jets seen: yes There is no evidence for hydronephrosis at this point in time. No nephrolithiasis is seen. No corbin s are identified. The urinary bladder is adequately distended. Bilateral ureteral jets are seen. IMPRESSION: Unremarkable study. If symptoms of hematuria persists further investigation with CT urogr am would be warranted.
== END | disposition home or self-care (01) ==
LOC: RADUSWWP 14:16
PROVIDERS: ATTEND Urology
DX: R31.1 Benign essential microscopic hematuria (principal)
CPT/HCPCS: 76770

== ENCOUNTER 2022-05-15 08:44 | Observation (INO) | payer OTHER ==
[2022-05-12 09:58] VITALS: BMI 34.7
[~2022-05-15 08:44] MED LIST: DEXAMETHASONE SOD PHOSPHATE 4 MG/ML 1 ML VIAL IV ONE; HYDROmorphone 0.5 MG/0.5 ML SYRINGE IVP PRN; LACTATED RINGERS 1,000 ML IV SCH; LIDOCAINE 1% (10MG/ML) FOR IV START INTRADERMA PRN; MIDAZOLAM 2 MG/2 ML VIAL IV PRN; ONDANSETRON 4 MG/2 ML VIAL IVP ONE
--- NOTE | 2022-05-15 09:31 | XR ---
EXAMINATION TYPE: XR KUB DATE OF EXAM: 05/15/2022 COMPARISON: None HISTORY: N393, preoperative bladder sling. TECHNIQUE: KUB image of the abdomen is obtained with 2 radiographs. FINDINGS: Small bowel demonstrates no evidence for dilatation or air fluid levels. Gas and fecal material is seen in non-distended colon. No convincing evidence for pneumoperitoneum. No calculi overlying the bilateral kidneys. 3 mm calcification within the region of the left pelvis w hich may represent pelvic phlebolith versus ureteral calculus. Bilateral tubal ligation clips identified. The lung bases are clear. The osseous structures are intact. IMPRESSION: 3 mm calcification within the region of the left pelvis which may represent pelvic phlebolith versus ureteral calculus.
[2022-05-15 09:37] LABS: Glucose,Whole Blood 96 mg/dL (70-110)
[2022-05-15 09:38] VITALS: RESP 16
--- NOTE | 2022-05-15 10:15 | P.HPIHPCON ---
History of Present Illness Chief Complaint: BELGICA This is a 32-year-old female history of stress urinary incontinence. Underwent a cystoscopy and urodynamic which was only significant for stress urinary incontinence. She tried Keagle exercises without improvement. Discussed with her the option of a sling versus bulking agent. Discussed the risk and benefit of each approach. She agreed to proceed with a mid urethral sling. Discussed with her the risk of surgery which includes but not limited to bleeding, infection, urinary retention, persistent incontinence. I discussed with her I will be using mesh discussed the risk of mesh erosion into the vagina, urethra, and bladder. She understood all the risk and agreed to proceed with a trans- obturator sling Consent for Procedure: I have explained the operation/procedure to the patient, including the risks, benefits, side effects, alternative therapies (including not receiving the proposed treatment or service), the likelihood of the patient achieving his/her goals, and potential recuperation problems for the procedure/sedation/analgesia, as well as any blood products, if indicated. I also explained to the patient the risks, benefits and side effects of the alternatives, as well as the risks related to not receiving the proposed procedure, care, treatment, or services. 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 SEASONAL ALLERGIES History of Any Multi-Drug Resistant Organisms: None Reported Past Surgical History: Tonsillectomy, Tubal Ligation Additional Past Surgical History / Comment(s): D & C, nasal surgery, laparoscopy Past Anesthesia/Blood Transfusion Reactions: No Reported Reaction Smoking Status: Current every day smoker - Past Family History Mother Family Medical History: Hypertension Medications and Allergies Home Medications Medication Instructions Recorded Confirmed Type Albuterol Nebulized [Ventolin 2.5 mg INHALATION RT-QID PRN 11/15/21 05/15/22 History Nebulized] Albuterol Sulfate [Proair Hfa] 2 puff INHALATION RT-QID PRN 11/15/21 05/15/22 History Acetaminophen [Tylenol Extra 1,000 mg PO Q6H PRN 05/12/22 05/15/22 History Strength] Allergies Allergy/AdvReac Type Severity Reaction Status Date / Time amoxicillin [Amoxicillin] AdvReac Abdominal Verified 05/15/22 09:29 Pain ciprofloxacin [From Cipro] AdvReac itching, Verified 05/15/22 09:29 chest pain, swelling Surgical - Exam Vital Signs Temp Pulse Resp BP Pulse Ox 98 F 66 16 142/85 97 05/15/22 09:29 05/15/22 09:29 05/15/22 09:29 05/15/22 09:29 05/15/22 09:29 - General no distress, no pain - Eyes normal ocular movement, no pale - ENT normal nares, normal mucosa - Respiratory normal expansion, normal respiratory effort - Abdomen Abdomen: soft, non tender Assessment and Plan Assessment: All wire for a trans-obturator mid uretheral sling
[2022-05-15] MEDS ORDERED: ALBUTEROL HFA INHALER INHALATION PRN (10:46)
[2022-05-15] MEDS ORDERED: ALBUTEROL NEBULIZED 2.5 MG/3 ML INHALATION PRN (10:46)
[2022-05-15] MEDS ORDERED: LIDOCAINE 1%-EPI 1:100,000 20 ML VIAL SQ ONE ×2 (10:54)
[2022-05-15] MEDS ORDERED: ceFAZolin 1,000 MG in SODIUM CHLORIDE 0.9% 1,000 ML IRRIGATION ONE (10:54)
[2022-05-15] MEDS: DEXTROSE 5%-0.45% NACL 1,000 ML IV SCH (13:31)
--- NOTE | 2022-05-15 13:44 | P.OP ---
Date of Procedure: 05/15/22 Preoperative Diagnosis: Stress urinary incontinence Postoperative Diagnosis: Same Procedure(s) Performed: Cystoscopy, trans-obturator mid urethral sling Implants: Obtyrux Mesh sling Anesthesia: JOSÉ MIGUEL Surgeon: Lei Nichols Estimated Blood Loss (ml): 50 Pathology: none sent Condition: stable Disposition: PACU Indications for Procedure: This is a 32-year-old female history of stress urinary incontinence. Underwent a cystoscopy and urodynamic which was only significant for stress urinary incontinence. She tried Keagle exercises without improvement. Discussed with her the option of a sling versus bulking agent. Discussed the risk and benefit of each approach. She agreed to proceed with a mid urethral sling. Discussed with her the risk of surgery which includes but not limited to bleeding, infection, urinary retention, persistent incontinence. I discussed with her I will be using mesh discussed the risk of mesh erosion into the vagina, urethra, and bladder. She understood all the risk and agreed to proceed with a trans- obturator sling Description of Procedure: The patient was taken to the operating room and placed in the dorsal lithotomy position, with her legs supported in Gunnar stirrups. The perineum, lower abdomen, and vagina were prepped and draped sterilely. A 16-Icelandic Nieto catheter was placed. Silk sutures were placed to retract the labia laterally on each side. 0.5% Marcaine with epinephrine was injected submucosally within the anterior vaginal wall, over the urethra. The scalpel was then used to make an anterior midline vaginal incision over the urethra. Metzenbaum scissors were used to dissect laterally within the submucosal plane, to the inferior pubic ramus. The scalpel was used to make bilateral groin incisions at the level of the clitoris. Subcutaneous tissues were spread with a hemostat. Each of the helical needles were passed through the respective groin incision, and turned such that the needle tip wrapped around the pubis. The needle tips were guided digitally into the vaginal incision. The Obtryx graft, which had been previously soaked in antibiotic solution, was secured to the needle tips in the standard fashion. The needles were then withdrawn, and the position of the graft was adjusted such that it overlie the mid urethra, as desired. With a hemostat placed between the graft and the urethra to prevent tension of the graft over the urethra, the plastic sheath was removed from the ends of the graft. The ends of the graft were cut beneath the skin incisions, and these incisions were closed using 4-0 Vicryl suture in a subcuticular fashion. Hemostasis within the vaginal incision was adequate, and the vaginal incision was closed using 2-0 Vicryl suture in a running fashion. Cystoscopy was performed. The 30 lens was used to introduce the 17-Icelandic Storz cystoscopic sheath through the urethra and into the bladder under direct vision. The urethra and bladder were unremarkable. There was no evidence of perforation. Both ureteral orifices were of normal anatomic location and configuration, and clear urine effluxed from both. No tumors or foreign bodies were seen. The cystoscope was removed, and the Nieto catheter was replaced into the bladder. Vaginal packing was placed. All sponge and needle counts were correct. The patient tolerated the procedure well was taken to the recovery room in stable condition
[2022-05-15] MEDS: HEPARIN SODIUM,PORCINE/PF 5,000 UNIT/0.5 ML SYRINGE SQ SCH ×2 (17:08→23:07)
[2022-05-15] MEDS: KETOROLAC 15 MG/ML 1 ML VIAL IVP PRN ×2 (17:08→23:06)
[2022-05-15] MEDS: HYDROcodone/APAP 5-325MG 1 EACH TAB PO PRN (18:47)
[2022-05-16] MEDS: HYDROcodone/APAP 5-325MG 1 EACH TAB PO PRN (01:34)
[2022-05-16] MEDS: DEXTROSE 5%-0.45% NACL 1,000 ML IV SCH (01:36)
[2022-05-16] MEDS: KETOROLAC 15 MG/ML 1 ML VIAL IVP PRN (05:29)
[2022-05-16] MEDS: HEPARIN SODIUM,PORCINE/PF 5,000 UNIT/0.5 ML SYRINGE SQ SCH (08:01)
[2022-05-16 08:11] VITALS: BP 133/75; PULSE 78; TEMP 97.7
--- NOTE | 2022-05-16 09:45 | P.DS ---
Providers Date of admission: 05/15/22 23:33 Expected date of discharge: 05/16/22 Attending physician: Lei Nichols MD Primary care physician: Kentrell Bell - Discharge Diagnosis(es) (1) BELGICA (stress urinary incontinence, female) Current Visit: Yes Status: Chronic Hospital Course: The patient is a 32-year-old female history of stress urinary incontinence. Underwent a cystoscopy and urodynamic testing which was only significant for stress urinary incontinence. She tried Keagle exercises without improvement. On 05/15/22 she underwent a cystoscopy, trans-obturator mid urethral sling with Obtyrux mesh. She is POD #1 and sitting up in the chair. She states her pain is well controlled. She is afebrile and denies any pain, nausea, or vomiting. She is tolerating a diet. She is voiding and reported some mild hematuria. No pain or burning with urination. She was informed that she could go home later today after a nurse check a PVR and it is < 150ml. Her nurse, Karen called and reported the patient was up and in the shower. Her PVR was 52ml Patient Condition at Discharge: Good Plan - Discharge Summary Discharge Rx Participant: No New Discharge Prescriptions: New Ketorolac [Toradol] 10 mg PO Q6HR #12 tab No Action Albuterol Sulfate [Proair Hfa] 2 puff INHALATION RT-QID PRN PRN Reason: Shortness Of Breath Albuterol Nebulized [Ventolin Nebulized] 2.5 mg INHALATION RT-QID PRN PRN Reason: Shortness Of Breath Acetaminophen [Tylenol Extra Strength] 1,000 mg PO Q6H PRN PRN Reason: Pain Discharge Medication List Albuterol Nebulized [Ventolin Nebulized] 2.5 mg INHALATION RT-QID PRN 11/15/21 [History] Albuterol Sulfate [Proair Hfa] 2 puff INHALATION RT-QID PRN 11/15/21 [History] Acetaminophen [Tylenol Extra Strength] 1,000 mg PO Q6H PRN 05/12/22 [History] Ketorolac [Toradol] 10 mg PO Q6HR #12 tab 05/16/22 [Rx] Follow up Appointment(s)/Referral(s): Lei Nichols MD [STAFF PHYSICIAN] - 2 Weeks (Appt scheduled for May 31) Discharge Disposition: HOME SELF-CARE Plan of Treatment: No heavy lifting or straining for for 4 weeks. No sexual intercourse for 4 weeks. Keep incisions clean and dry. May shower.
== END 2022-05-16 10:15 | disposition home or self-care (01) ==
LOC: OR 08:44 → 4FBP 11:31 → OR 23:33 → 4FBP 23:33
PROVIDERS: ADMIT Urology; ATTEND Urology
DX: N39.3 Stress incontinence (female) (male) (principal); F17.200 Nicotine dependence, unspecified, uncomplicated; Z88.0 Allergy status to penicillin; Z88.1 Allergy status to other antibiotic agents
CPT/HCPCS: 81025; 74018; 57288; G0378 ×2; C1771; J1100; J0690 ×2; J2405; J1885 ×2; J1170; J1644 ×2

== ENCOUNTER 2022-06-16 11:48 | Emergency (ER) | payer OTHER ==
[2022-06-16] MEDS ORDERED: ONDANSETRON ODT 4 MG TAB PO STA (13:13)
--- NOTE | 2022-06-16 13:19 | ED ---
General Adult HPI - General Chief complaint: Fall Stated complaint: fall - head injury Time Seen by Provider: 06/16/22 13:00 Source: patient, RN notes reviewed, old records reviewed Mode of arrival: ambulatory Limitations: no limitations - History of Present Illness Initial comments: This is a 32-year-old female presents emergency department stating that she has had a left ear infection and just today she states she was dizzy because of the ear infection felt a shower hit her head and lost consciousness. Patient states she hit the back of her head and denies hitting her face even though the triage note indicates she may have hit her. She completely denies hitting her face. Patient states her hearing in that ear is much more muffled than it has been and she has some ringing in the ear. Patient also has some left-sided neck pain. Patient denies any numbness or weakness per patient denies any upper tummy pain patient denies any back pain patient denies any chest pain. Patient denies any fever chills. Patient states her ear was multiple prior to the fall but it worsened since then. Patient states she's been on Zithromax but is completed it and it is not any better. - Related Data Home Medications Medication Instructions Recorded Confirmed Acetaminophen [Tylenol Extra 1,000 mg PO Q6H PRN 05/12/22 06/16/22 Strength] Ibuprofen [Motrin] 800 mg PO Q6H PRN 06/16/22 06/16/22 Previous Rx's Medication Instructions Recorded Cefdinir [Omnicef] 300 mg PO Q12HR #20 capsule 06/16/22 Allergies Allergy/AdvReac Type Severity Reaction Status Date / Time amoxicillin [Amoxicillin] AdvReac Abdominal Verified 06/16/22 13:42 Pain ciprofloxacin [From Cipro] AdvReac itching, Verified 06/16/22 13:42 chest pain, swelling Review of Systems ROS Statement: Those systems with pertinent positive or pertinent negative responses have been documented in the HPI. ROS Other: All systems not noted in ROS Statement are negative. 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 SEASONAL ALLERGIES History of Any Multi-Drug Resistant Organisms: None Reported Past Surgical History: Tonsillectomy, Tubal Ligation Additional Past Surgical History / Comment(s): D & C, nasal surgery, laparoscopy Past Anesthesia/Blood Transfusion Reactions: No Reported Reaction Past Psychological History: Anxiety Smoking Status: Current every day smoker Past Alcohol Use History: None Reported Past Drug Use History: Marijuana - Past Family History Mother Family Medical History: Hypertension General Exam - General Exam Comments Initial Comments: GENERAL: Patient is well-developed and well-nourished. Patient is nontoxic and well- hydrated and is in mild distress. The left occipital area of the scalp is somewhat tender but there is no hematoma or abrasion. Patient's left trapezius muscle is tender to palpation ENT: Neck is soft and supple. No significant lymphadenopathy is noted. Oropharynx is clear. Moist mucous membranes. Neck has full range of motion without eliciting any pain. Patient's left TM is bulging and erythematous. Patient has no facial tenderness. EYES: The sclera were anicteric and conjunctiva were pink and moist. Extraocular movements were intact and pupils were equal round and reactive to light. Eyelids were unremarkable. PULMONARY: Unlabored respirations. Good breath sounds bilaterally. No audible rales rhonchi or wheezing was noted. CARDIOVASCULAR: There is a regular rate and rhythm without any murmurs gallops or rubs. ABDOMEN: Soft and nontender with normal bowel sounds. SKIN: Skin is clear with no lesions or rashes and otherwise unremarkable. NEUROLOGIC: Patient is alert and oriented x3. Cranial nerves II through XII are grossly intact. Motor and sensory are also intact. Normal speech, volume and content. Symmetrical smile. MUSCULOSKELETAL: Normal extremities with adequate strength and full range of motion. LYMPHATICS: No significant lymphadenopathy is noted PSYCHIATRIC: Normal psychiatric evaluation. Limitations: no limitations Course Vital Signs 06/16/22 06/16/22 12:42 14:40 Temperature 97.6 F 98.0 F Pulse Rate 77 70 Respiratory 20 18 Rate Blood Pressure 170/102 163/95 O2 Sat by Pulse 98 99 Oximetry Medical Decision Making - Medical Decision Making I did a CT of the brain showed no acute normalities. I interpreted the CT of C-spine showed no acute abnormalities. Patient will be given Omnicef for the ear infection left. Patient received Rocephin and Toradol in the emergency department Disposition Clinical Impression: Fall, Left otitis media, Head injury Disposition: HOME SELF-CARE Prescriptions: Cefdinir [Omnicef] 300 mg PO Q12HR #20 capsule Is patient prescribed a controlled substance at d/c from ED?: No Referrals: Kentrell Bell MD [Primary Care Provider] - 1-2 days Time of Disposition: 14:59
--- NOTE | 2022-06-16 14:44 | CT ---
EXAMINATION TYPE: CT brain chalino wo con DATE OF EXAM: 06/16/2022 COMPARISON: None HISTORY: Fall CT DLP: 1604.[address] Brain: Unenhanced CT of the brain was performed. The ventricles, basal cisterns and sulci overlying the cerebral convexities demonstrate a normal appe arance. There is no evidence for intracranial hemorrhage or sulcal effacement. No mass effects are seen. If symptoms persist consider MRI. Osseous calvarium is intact. There is soft tissue surrounding the left ossicular chain which may refl ect cholesteatoma. In the setting of acute hearing loss hemorrhages not excluded although I do not se e evidence for a displaced fracture at this time. Small amount of fluid within the left-sided mastoid air cells may reflect chronic mastoiditis. Chroni c pansinusitis noted mild in degree. IMPRESSION: 1. No acute intracranial process. 2.There is soft tissue surrounding the left ossicular chain which may reflect cholesteatoma. In the s etting of acute hearing loss hemorrhage is not excluded although I do not see evidence for a displace d fracture at this time. CT Cervical Spine: Unenhanced CT of the cervical spine was performed with bone and soft tissue window settings submitted . Coronal and sagittal reconstruction is obtained. There is normal alignment and prevertebral soft tissues. I do not see evidence for fracture or sublu xation. No significant degenerative changes are present. The lung apices are clear. IMPRESSION: No evidence for acute fracture or subluxation of the cervical spine.
[2022-06-16 14:45] VITALS: RESP 18
[2022-06-16] MEDS ORDERED: cefTRIAXone 1,000 MG VIAL (IM USE) IM STA (15:15)
[2022-06-16] MEDS ORDERED: KETOROLAC 15 MG/ML 1 ML VIAL IM STA (15:18)
[2022-06-16 16:01] VITALS: BP 136/92; PULSE 72; TEMP 97
== END 2022-06-16 16:01 | disposition home or self-care (01) ==
LOC: EC 11:48
DX: H66.92 Otitis media, unspecified, left ear (principal); S06.0X9A Concussion with loss of consciousness of unspecified duration, initial encounter; F41.9 Anxiety disorder, unspecified; F17.200 Nicotine dependence, unspecified, uncomplicated; Z88.0 Allergy status to penicillin; Z88.1 Allergy status to other antibiotic agents; W18.09XA Striking against other object with subsequent fall, initial encounter
CPT/HCPCS: 72125; 70450; 99284; 96372 ×2; J0696; J1885

== ENCOUNTER 2022-11-12 15:28 | Emergency (ER) | payer OTHER ==
[2022-11-12 15:38] VITALS: TEMP 98.2
[2022-11-12] MEDS ORDERED: SODIUM CHLORIDE 0.9% 1,000 ML IV STA (15:45)
[2022-11-12] MEDS ORDERED: KETOROLAC 15 MG/ML 1 ML VIAL IVP STA (15:46)
[2022-11-12] MEDS ORDERED: ONDANSETRON 4 MG/2 ML VIAL IVP STA (15:46)
[2022-11-12] MEDS ORDERED: HYDROmorphone 0.5 MG/0.5 ML SYRINGE IVP STA ×2 (16:01→17:19)
[2022-11-12 16:33] LABS: Appearance,Urine Clear (Clear); Bilirubin,Urine Negative (Negative); Blood,Urine Negative (Negative); Color,Urine Yellow; Glucose,Urine (UA) Negative (Negative); Ketones,Urine Negative (Negative); Leukocyte Esterase,Urine Moderate (Negative); Mucus,Urine Rare /hpf; Nitrite,Urine Negative (Negative); PH, Urine 8.5 (5.0-8.0); Protein,Urine Trace (Negative); RBC,Urine 3 /hpf (0-5); Specific Gravity,Urine 1.021 (1.001-1.035); Squamous Epithelial Cell,Urine 2 /hpf (0-4); WBC,Urine 3 /hpf (0-5)
--- NOTE | 2022-11-12 16:43 | CT ---
EXAMINATION TYPE: CT abdomen pelvis w con CT DLP: 1816.8 mGycm, Automated exposure control for dose reduction was used. DATE OF EXAM: 11/12/2022 4:36 PM COMPARISON: 09/10/2016 CT CLINICAL INDICATION:Female, 32 years old with history of llq pain; LUQ pain, vomiting, nausea TECHNIQUE: Axial CT of the abdomen and pelvis. Sagittal and coronal reformats were created on a [employer] workstation. Contrast used:100 mL of Isovue 300 with IV Contrast, Oral contrast used: without Oral Contrast FINDINGS: LOWER CHEST: Pectus excavatum. ABDOMEN LIVER: Unremarkable GALLBLADDER AND BILE DUCTS: No ductal dilation. PANCREAS: Unremarkable. SPLEEN: Unremarkable. ADRENAL GLANDS: Unremarkable. KIDNEYS AND URETERS: No evidence of hydronephrosis or renal calculus. The ureters are unremarkable. PELVIS BLADDER: Unremarkable REPRODUCTIVE: Bilateral tubal ligation clips. Corpus luteum on the left. ABDOMEN & PELVIS STOMACH AND BOWEL: No evidence of bowel obstruction. The appendix is normal. PERITONEUM/RETROPERITONE UM: No evidence of pneumoperitoneum or free fluid. Unchanged cerebral lola mesentery in the left upp er quadrant, similar to 2017. VASCULATURE: No evidence of aortic aneurysm. MUSCULOSKELETAL: No acute osseous abnormalities LYMPH NODES: No gross evidence for lymphadenopathy. SOFT TISSUE/ABDOMINAL WALL: Unremarkable IMPRESSION: No evidence for acute intra-abdominal process to explain the patient's pain. No significant change fr om 2017.
[2022-11-12 17:05] LABS: HCT 45.1 % (34.0-46.0); HGB 15.5 gm/dL (11.4-16.0); MCH 29.5 pg (25.0-35.0); MCHC 34.3 g/dL (31.0-37.0); MCV 85.8 fL (80.0-100.0); Platelet Count 157 k/uL (150-450); RBC 5.25 m/uL (3.80-5.40); WBC 6.7 k/uL (3.8-10.6)
[2022-11-12 17:23] LABS: Basophils # (M) 0.07 k/uL (0-0.2); Lymphocytes # (M) 2.21 k/uL (1.0-4.8); Neutrophils # (M) 3.22 k/uL (1.3-7.7); Neutrophils % (M) 48 %; Nucleated Red Blood Cells 0 /100 WBC (0-0); Total Cells Counted 100
[2022-11-12 17:25] LABS: RBC Morphology Normal
[2022-11-12 17:30] LABS: ALT 19 U/L (4-34); AST 26 U/L (14-36); African American GFR (CKD) >90 (>60 ml/min/1.73 sqM); Albumin 4.2 g/dL (3.5-5.0); Alkaline Phosphatase 58 U/L (38-126); Anion Gap 6 mmol/L; Blood Urea Nitrogen 15 mg/dL (7-17); Calcium 9.1 mg/dL (8.4-10.2); Carbon Dioxide 26 mmol/L (22-30); Chloride 106 mmol/L (98-107); Glucose 86 mg/dL (74-99); Lipase 134 U/L (23-300); Non-African American GFR(CKD) >90 (>60 ml/min/1.73 sqM); Potassium 4.3 mmol/L (3.5-5.1); Sodium 138 mmol/L (137-145); Total Bilirubin 0.6 mg/dL (0.2-1.3); Total Protein 7.5 g/dL (6.3-8.2)
--- NOTE | 2022-11-12 18:03 | ED ---
Abdominal Pain HPI - General Source: patient Mode of arrival: wheelchair Limitations: no limitations <Megha Reynoso - Last Filed: 11/12/22 18:11> - General Source: RN notes reviewed, old records reviewed - History of Present Illness Complaint: abdominal pain -: hour(s), days(s) Location: L flank Radiation: LLQ Migration to: suprapubic Severity: moderate Severity scale (1-10): 5 Quality: aching Consistency: constant Improves With: nothing Worsens With: nothing Associated Symptoms: nausea Treatments Prior to Arrival: other (0) <Rian Brown - Last Filed: 11/12/22 19:25> - General Chief Complaint: Abdominal Pain Stated Complaint: Severe left side flank pain Time Seen by Provider: 11/12/22 15:43 - History of Present Illness Initial Comments: Patient is a 32-year-old female who presents to the emergency department for abdominal pain. It started last night mostly in the left lower abdomen which radiates into the left side and into the back. Taking Motrin without relief. Patient feels nauseous no vomiting. No fever or chills. No burning with urination, blood in the urine, urinary frequency/urgency. Patient denies chance of . Denies history of kidney stone and infection. (Megha Reynoso) - Related Data Home Medications Medication Instructions Recorded Confirmed No Known Home Medications 11/12/22 11/12/22 Allergies Allergy/AdvReac Type Severity Reaction Status Date / Time amoxicillin [Amoxicillin] AdvReac Abdominal Verified 11/12/22 17:28 Pain ciprofloxacin [From Cipro] AdvReac itching, Verified 11/12/22 17:28 chest pain, swelling Review of Systems ROS Other: All systems not noted in ROS Statement are negative. <Megha Reynoso - Last Filed: 11/12/22 18:11> ROS Other: All systems not noted in ROS Statement are negative. <Rian Brown - Last Filed: 11/12/22 19:25> ROS Statement: Those systems with pertinent positive or pertinent negative responses have been documented in the HPI. 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 SEASONAL ALLERGIES History of Any Multi-Drug Resistant Organisms: None Reported Past Surgical History: Tonsillectomy, Tubal Ligation Additional Past Surgical History / Comment(s): D & C, nasal surgery, laparoscopy, bladder sling Past Anesthesia/Blood Transfusion Reactions: No Reported Reaction Past Psychological History: Anxiety Smoking Status: Current every day smoker Past Alcohol Use History: None Reported Past Drug Use History: Marijuana - Past Family History Mother Family Medical History: Hypertension <Megha Reynoso - Last Filed: 11/12/22 18:11> General Exam Limitations: no limitations General appearance: alert, in no apparent distress Head exam: Present: atraumatic, normocephalic, normal inspection Eye exam: Present: normal appearance, PERRL, EOMI. Absent: scleral icterus, conjunctival injection, periorbital swelling Respiratory exam: Present: normal lung sounds bilaterally. Absent: respiratory distress, wheezes, rales, rhonchi, stridor Cardiovascular Exam: Present: regular rate, normal rhythm, normal heart sounds. Absent: systolic murmur, diastolic murmur, rubs, gallop, clicks GI/Abdominal exam: Present: soft, tenderness (LLQ), normal bowel sounds. Absent: distended, guarding, rebound, rigid Back exam: Present: normal inspection. Absent: CVA tenderness (R), CVA tenderness (L) Neurological exam: Present: alert, oriented X3, CN II-XII intact Psychiatric exam: Present: normal affect, normal mood Skin exam: Present: warm, dry, intact, normal color. Absent: rash <Megha Reynoso - Last Filed: 11/12/22 18:11> General appearance: alert, in no apparent distress Head exam: Present: atraumatic, normocephalic, normal inspection Eye exam: Present: normal appearance, PERRL, EOMI. Absent: scleral icterus, conjunctival injection, periorbital swelling ENT exam: Present: normal exam, mucous membranes moist Neck exam: Present: normal inspection. Absent: tenderness, meningismus, lymphadenopathy Respiratory exam: Present: normal lung sounds bilaterally. Absent: respiratory distress, wheezes, rales, rhonchi, stridor Cardiovascular Exam: Present: regular rate, normal rhythm, normal heart sounds. Absent: systolic murmur, diastolic murmur, rubs, gallop, clicks GI/Abdominal exam: Present: soft, normal bowel sounds. Absent: distended, tenderness, guarding, rebound, rigid Extremities exam: Present: normal inspection, full ROM, normal capillary refill. Absent: tenderness, pedal edema, joint swelling, calf tenderness Back exam: Present: normal inspection Neurological exam: Present: alert, oriented X3, CN II-XII intact Psychiatric exam: Present: normal affect, normal mood Skin exam: Present: warm, dry, intact, normal color. Absent: rash <Rian Brown - Last Filed: 11/12/22 19:25> Course <Rian Brown - Last Filed: 11/12/22 19:25> Vital Signs 11/12/22 11/12/22 15:35 18:39 Temperature 98.2 F Pulse Rate 81 62 Respiratory 20 18 Rate Blood Pressure 145/80 127/68 O2 Sat by Pulse 97 97 Oximetry - Reevaluation(s) Reevaluation #1: 11/12/22 19:24 Medical record is reviewed (Rian Brown) Reevaluation #2: 11/12/22 19:24 pain improved here in the ER (Rian Brown) Reevaluation #3: 11/12/22 19:24 Patient informed of results and questions answered (Rian Brown) Medical Decision Making - Lab Data Result diagrams: 11/12/22 15:59 11/12/22 15:59 <Megha Reynoso - Last Filed: 11/12/22 18:11> - Lab Data Result diagrams: 11/12/22 15:59 11/12/22 15:59 - Radiology Data Radiology results: report reviewed (Pelvic ultrasound negative for acute disease CT abdomen and pelvis negative for acute disease), image reviewed <Rian Brown - Last Filed: 11/12/22 19:25> - Medical Decision Making Was pt. sent in by a medical professional or institution (, PA, PERINATAL COORDINATOR, urgent care, hospital, or [place] health care facility...) When possible be specific @ -[No] Did you speak to anyone other than the patient for history (EMS, parent, family, police, friend...)? What history was obtained from this source @ -[No] Did you review nursing and triage notes (agree or disagree)? Why? @ -[I reviewed and agree with nursing and triage notes] Were old charts reviewed (outside hosp., previous admission, EMS record, old EKG, old radiological studies, urgent care reports/EKG's, [place] health care facility records)? Report findings @ -[No old charts were reviewed] Differential Diagnosis (chest pain, altered mental status, abdominal pain women, abdominal pain men, vaginal bleeding, weakness, fever, dyspnea, syncope, headache, dizziness, GI bleed, back pain, seizure, CVA, palpatations, mental health)? @ -Differential Abdominal Pain Women: Appendicitis, Cholecystitis, diverticulosis, ischemic bowel, pancreatitis, hepatitis, UTI, gastroenteritis, AAA, incarcerated hernia, bowel obstruction, constipation, inflammatory bowel, hepatitis, peptic ulcer disease, splenic infarction, perforated viscus, vulvitis, ovarian torsion, PID, kidney stone, placenta abruption, this is not meant to be an all-inclusive list EKG interpreted by me (3pts min.). @ -[As above] X-rays interpreted by me (1pt min.). @ -[None done] CT interpreted by me (1pt min.). @ -CT of the abdomen and pelvis is negative for acute process. U/S interpreted by me (1pt. min.). @ -[None done] What testing was considered but not performed or refused? (CT, X-rays, U/S, labs)? Why? @ -[None] What meds were considered but not given or refused? Why? @ -[None] Did you discuss the management of the patient with other professionals (professionals i.e. , PA, PERINATAL COORDINATOR, lab, RT, psych nurse, social media project manager, clinical team manager, teacher, lead security officer, case management social worker)? Give summary @ -[No] Was smoking cessation discussed for >3mins.? @ -[No] Was critical care preformed (if so, how long)? @ -[No] Were there social determinants of health that impacted care today? How? (Homelessness, low income, unemployed, alcoholism, drug addiction, transportation, low edu. Level, literacy, decrease access to med. care, half-way, rehab)? @ -[No] Was there de-escalation of care discussed even if they declined (Discuss DNR or withdrawal of care, Hospice)? DNR status @ -[No] What co-morbidities impacted this encounter? (DM, HTN, Smoking, COPD, CAD, Cancer, CVA, ARF, Chemo, Hep., AIDS, mental health diagnosis, sleep apnea, morbid obesity)? @ -[None] Was patient admitted / discharged? Hospital course, mention meds given and route, prescriptions, significant lab abnormalities, going to OR and other pertinent info. @ -Patient presenting for left lower quadrant pain. The abdomen is soft. Patient is tender in LLQ there is no rigidity or guarding. She is afebrile. Laboratory studies obtained. There is no leukocytosis. Urinalysis does not reveal blood or infection. Other laboratory studies are relatively unremarkable. CT obtained negative for acute process. Ovarian cyst and torsion could not be ruled out therefore ultrasound was ordered. Patient care give to Dr. Brown at 18:10. Undiagnosed new problem with uncertain prognosis? @ -[No] Drug Therapy requiring intensive monitoring for toxicity (Heparin, Nitro, Insulin, Cardizem)? @ -[No] Were any procedures done? @ -[No] Diagnosis/symptom? @ -LLQ pain, nausea Acute, or Chronic, or Acute on Chronic? @ -acute Uncomplicated (without systemic symptoms) or Complicated (systemic symptoms)? @ -uncomplicated Side effects of treatment? @ -[No] Exacerbation, Progression, or Severe Exacerbation? @ -[No] Poses a threat to life or bodily function? How? (Chest pain, [place], [place], pneumonia, PE, COPD, DKA, ARF, appy, cholecystitis, CVA, Diverticulitis, Homicidal, Suicidal, threat to staff... and all critical care pts) @ -[No] Dr. Brown is my attending (Megha Reynoso) 32 female with nonspecific abdominal pain left lower quadrant abdominal pain as normal imaging lab values here in the ER, patient can be discharged home (Rian King) - Lab Data Lab Results 11/12/22 11/12/22 11/12/22 Range/Units 15:59 15:59 15:59 WBC 6.7 (3.8-10.6) k/uL RBC 5.25 (3.80-5.40) m/uL Hgb 15.5 (11.4-16.0) gm/dL Hct 45.1 (34.0-46.0) % MCV 85.8 (80.0-100.0) fL MCH 29.5 (25.0-35.0) pg MCHC 34.3 (31.0-37.0) g/dL RDW 13.0 (11.5-15.5) % Plt Count 157 (150-450) k/uL MPV 11.0 Neutrophils % (Manual) 48 % Lymphocytes % (Manual) 33 % Monocytes % (Manual) 12 % Eosinophils % (Manual) 6 % Basophils % (Manual) 1 % Neutrophils # (Manual) 3.22 (1.3-7.7) k/uL Lymphocytes # (Manual) 2.21 (1.0-4.8) k/uL Monocytes # (Manual) 0.80 (0-1.0) k/uL Eosinophils # (Manual) 0.40 (0-0.7) k/uL Basophils # (Manual) 0.07 (0-0.2) k/uL Nucleated RBCs 0 (0-0) /100 WBC Manual Slide Review Performed RBC Morphology Normal Sodium 138 (137-145) mmol/L Potassium 4.3 (3.5-5.1) mmol/L Chloride 106 (98-107) mmol/L Carbon Dioxide 26 (22-30) mmol/L Anion Gap 6 mmol/L BUN 15 (7-17) mg/dL Creatinine 0.61 (0.52-1.04) mg/dL Est GFR (CKD-EPI)AfAm >90 (>60 ml/min/1.73 sqM) Est GFR (CKD-EPI)NonAf >90 (>60 ml/min/1.73 sqM) Glucose 86 (74-99) mg/dL Plasma Lactic Acid Erik (0.7-2.0) mmol/L Calcium 9.1 (8.4-10.2) mg/dL Total Bilirubin 0.6 (0.2-1.3) mg/dL AST 26 (14-36) U/L ALT 19 (4-34) U/L Alkaline Phosphatase 58 (38-126) U/L Total Protein 7.5 (6.3-8.2) g/dL Albumin 4.2 (3.5-5.0) g/dL Lipase 134 (23-300) U/L Urine Color Yellow Urine Appearance Clear (Clear) Urine pH 8.5 H (5.0-8.0) Ur Specific Herald 1.021 (1.001-1.035) Urine Protein Trace H (Negative) Urine Glucose (UA) Negative (Negative) Urine Ketones Negative (Negative) Urine Blood Negative (Negative) Urine Nitrite Negative (Negative) Urine Bilirubin Negative (Negative) Urine Urobilinogen 2.0 (<2.0) mg/dL Ur Leukocyte Esterase Moderate H (Negative) Urine RBC 3 (0-5) /hpf Urine WBC 3 (0-5) /hpf Ur Squamous Epith Cells 2 (0-4) /hpf Urine Mucus Rare H (None) /hpf Urine HCG, Qual (Not Detectd) 11/12/22 11/12/22 Range/Units 15:59 16:11 WBC (3.8-10.6) k/uL RBC (3.80-5.40) m/uL Hgb (11.4-16.0) gm/dL Hct (34.0-46.0) % MCV (80.0-100.0) fL MCH (25.0-35.0) pg MCHC (31.0-37.0) g/dL RDW (11.5-15.5) % Plt Count (150-450) k/uL MPV Neutrophils % (Manual) % Lymphocytes % (Manual) % Monocytes % (Manual) % Eosinophils % (Manual) % Basophils % (Manual) % Neutrophils # (Manual) (1.3-7.7) k/uL Lymphocytes # (Manual) (1.0-4.8) k/uL Monocytes # (Manual) (0-1.0) k/uL Eosinophils # (Manual) (0-0.7) k/uL Basophils # (Manual) (0-0.2) k/uL Nucleated RBCs (0-0) /100 WBC Manual Slide Review RBC Morphology Sodium (137-145) mmol/L Potassium (3.5-5.1) mmol/L Chloride (98-107) mmol/L Carbon Dioxide (22-30) mmol/L Anion Gap mmol/L BUN (7-17) mg/dL Creatinine (0.52-1.04) mg/dL Est GFR (CKD-EPI)AfAm (>60 ml/min/1.73 sqM) Est GFR (CKD-EPI)NonAf (>60 ml/min/1.73 sqM) Glucose (74-99) mg/dL Plasma Lactic Acid Erik 0.9 (0.7-2.0) mmol/L Calcium (8.4-10.2) mg/dL Total Bilirubin (0.2-1.3) mg/dL AST (14-36) U/L ALT (4-34) U/L Alkaline Phosphatase (38-126) U/L Total Protein (6.3-8.2) g/dL Albumin (3.5-5.0) g/dL Lipase (23-300) U/L Urine Color Urine Appearance (Clear) Urine pH (5.0-8.0) Ur Specific Herald (1.001-1.035) Urine Protein (Negative) Urine Glucose (UA) (Negative) Urine Ketones (Negative) Urine Blood (Negative) Urine Nitrite (Negative) Urine Bilirubin (Negative) Urine Urobilinogen (<2.0) mg/dL Ur Leukocyte Esterase (Negative) Urine RBC (0-5) /hpf Urine WBC (0-5) /hpf Ur Squamous Epith Cells (0-4) /hpf Urine Mucus (None) /hpf Urine HCG, Qual Not Detected (Not Detectd) Disposition <Megha Reynoso - Last Filed: 11/12/22 18:11> Is patient prescribed a controlled substance at d/c from ED?: No Time of Disposition: 19:15 <Rian Brown - Last Filed: 11/12/22 19:25> Clinical Impression: LLQ abdominal pain, Nausea, Abdominal pain Disposition: HOME SELF-CARE Condition: Good Instructions (If sedation given, give patient instructions): Abdominal Pain (ED) Referrals: Kentrell Bell MD [Primary Care Provider] - 1-2 days
[2022-11-12 18:40] VITALS: BP 127/68; PULSE 62; RESP 18
--- NOTE | 2022-11-12 18:47 | US ---
EXAMINATION TYPE: US transvaginal DATE OF EXAM: 11/12/2022 COMPARISON: CT 11/12/22, US 2016 CLINICAL INDICATION: Female, 32 years old with history of LLQ pain; LLQ pain since 9pm yesterday 11/11. Hx C section, tubal ligation, ovarian cyst, 1 medical , 1 miscarriage, twin gestation. G 6 P4. TECHNIQUE: Transvaginal (TV). Date of LMP: 10/22/2022 EXAM MEASUREMENTS: Uterus: 7.9 x 5.4 x 4.8 cm Endometrial Stripe: 0.64 cm Right Ovary: 3.2 x 2.0 x 1.6 cm Left Ovary: 3.4 x 2.1 x 2.8 cm 1. Uterus: Retroverted Hyperechoic area with possible posterior shadowing seen within anterior myome trium: 0.8 x 0.5 x 0.4 cm favored represent leiomyoma. 2. Endometrium: Measures 0.64 cm 3. Right Ovary: Appears wnl 4. Left Ovary: Area of mixed echogenicity and peripheral vascularity seen: 2.4 x 1.9 x 1.9 cm compat ible with corpus luteum as seen on CT. Spectral, color and waveform doppler imaging shows good arterial and venous flow within the ovaries . 5. Bilateral Adnexa: Appear wnl 6. Posterior cul-de-sac: Fluid seen within CDS. IMPRESSION: 1. Appropriate arterial and spectral venous waveforms to the ovaries. 2. Endometrium within normal limits for thickness. 3. Probable small leiomyoma
[2022-11-12] MEDS ORDERED: ACET/COD 300 MG/30 MG STARTER PACK 6 TAB BTL PO STA (19:33)
[2022-11-12] MEDS ORDERED: IBUPROFEN 600 MG STARTER PACK 4 TAB BTL PO STA (19:33)
[2022-11-12] MEDS ORDERED: METOCLOPRAMIDE 5 MG/ML 2 ML VIAL IVP STA (19:33)
[2022-11-12] MEDS ORDERED: HYDROmorphone 1 MG/ML 1 ML SYRINGE IVP STA (19:33)
[2022-11-12] MEDS ORDERED: ONDANSETRON 4 MG ODT STARTER PACK 2 TAB BTL PO STA (19:33)
== END 2022-11-12 20:01 | disposition home or self-care (01) ==
LOC: EC 15:28
DX: R10.32 Left lower quadrant pain (principal); R11.0 Nausea; F17.200 Nicotine dependence, unspecified, uncomplicated; Z88.0 Allergy status to penicillin; Z88.1 Allergy status to other antibiotic agents
CPT/HCPCS: 99284; 96374; 96375; 96376; 36415; 80053; 83605; 83690; 85025; 81001; 81025; 93975; 76830; 74177; 96361; J2765; J2405; J1170 ×2; S0119; Q9967

== ENCOUNTER 2022-11-15 18:01 | Emergency (ER) | payer OTHER ==
[2022-11-15 21:32] LABS: ALT 21 U/L (4-34); AST 29 U/L (14-36); African American GFR (CKD) >90 (>60 ml/min/1.73 sqM); Albumin 4.7 g/dL (3.5-5.0); Alkaline Phosphatase 63 U/L (38-126); Amylase 83 U/L (30-110); Anion Gap 10 mmol/L; Blood Urea Nitrogen 16 mg/dL (7-17); Calcium 9.5 mg/dL (8.4-10.2); Carbon Dioxide 24 mmol/L (22-30); Chloride 104 mmol/L (98-107); Glucose 83 mg/dL (74-99); Lipase 177 U/L (23-300); Non-African American GFR(CKD) >90 (>60 ml/min/1.73 sqM); Potassium 4.2 mmol/L (3.5-5.1); Sodium 138 mmol/L (137-145); Total Bilirubin 0.7 mg/dL (0.2-1.3); Total Protein 8.5 g/dL (6.3-8.2)
[2022-11-15 21:38] LABS: Appearance,Urine Cloudy (Clear); Bilirubin,Urine Negative (Negative); Blood,Urine Small (Negative); Color,Urine Yellow; Glucose,Urine (UA) Negative (Negative); Hyaline Casts,Urine 2 /lpf (0-2); Ketones,Urine Negative (Negative); Leukocyte Esterase,Urine Large (Negative); Mucus,Urine Few /hpf; Nitrite,Urine Negative (Negative); Protein,Urine 2+ (Negative); RBC,Urine 21 /hpf (0-5); Specific Gravity,Urine 1.029 (1.001-1.035); Squamous Epithelial Cell,Urine 43 /hpf (0-4); Urobilinogen,Urine <2.0 mg/dL (<2.0); WBC,Urine 26 /hpf (0-5)
[2022-11-15] MEDS ORDERED: MORPHINE SULFATE 4 MG/ML SYRINGE IV STA (21:56)
[2022-11-15 21:58] LABS: Basophils % (A) 1 %; Eosinophils # (A) 0.2 k/uL (0-0.7); Eosinophils % (A) 3 %; HCT 52.8 % (34.0-46.0); HGB 18.3 gm/dL (11.4-16.0); Lymphocytes # (A) 1.9 k/uL (1.0-4.8); Lymphocytes % (A) 28 %; MCH 29.5 pg (25.0-35.0); MCHC 34.8 g/dL (31.0-37.0); MCV 84.8 fL (80.0-100.0); Monocytes # (A) 0.7 k/uL (0-1.0); Monocytes % (A) 10 %; Neutrophils # (A) 3.4 k/uL (1.3-7.7); Neutrophils % (A) 52 %; Platelet Count 132 k/uL (150-450); RBC 6.22 m/uL (3.80-5.40); RDW 13.2 % (11.5-15.5); WBC 6.6 k/uL (3.8-10.6)
[2022-11-15] MEDS ORDERED: MAG HYDROX/AL HYDROX/SIMETH 30 ML, HYOSCYAMINE ELIXIR 10 ML, LIDOCAINE VISCOUS 2% 10 ML PO STA ×3 (22:16)
--- NOTE | 2022-11-15 22:35 | CT ---
EXAMINATION TYPE: CT abdomen pelvis wo con CT DLP: 1058.4 mGycm, Automated exposure control for dose reduction was used. DATE OF EXAM: 11/15/2022 10:13 PM COMPARISON: CT abdomen pelvis most recent from 11/12/2022 CLINICAL INDICATION:Female, 32 years old with history of left flank pain; left flank pain TECHNIQUE: Axial CT of the abdomen and pelvis. Sagittal and coronal reformats were created on a [email or web address] workstation. Contrast used: None Oral contrast used: without Oral Contrast FINDINGS: LOWER CHEST: Pectus excavatum. ABDOMEN LIVER: Unremarkable GALLBLADDER AND BILE DUCTS: No ductal dilation. PANCREAS: Unremarkable. SPLEEN: Unremarkable. ADRENAL GLANDS: Unremarkable. KIDNEYS AND URETERS: No evidence of hydronephrosis or renal calculus. The ureters are unremarkable. PELVIS BLADDER: Unremarkable REPRODUCTIVE: Bilateral tubal ligation clips. Corpus luteum on the left. ABDOMEN & PELVIS STOMACH AND BOWEL: No evidence of bowel obstruction. The appendix is normal. PERITONEUM/RETROPERITONE UM: No evidence of pneumoperitoneum or free fluid. Unchanged cerebral lola mesentery in the left upp er quadrant, similar to 2017. VASCULATURE: No evidence of aortic aneurysm. MUSCULOSKELETAL: No acute osseous abnormalities LYMPH NODES: No gross evidence for lymphadenopathy. SOFT TISSUE/ABDOMINAL WALL: Unremarkable IMPRESSION: Exam essentially remains the same without IV contrast, no evidence for acute intra-abdominal process to explain the patient's pain. No significant change from 2017.
[2022-11-15 23:14] VITALS: BP 136/83; PULSE 61; RESP 17; TEMP 98.6
[2022-11-15 23:19] LABS: RBC Morphology Normal
[2022-11-15] MEDS ORDERED: SULFAMETHOX-TMP 800-160MG 1 EACH TAB PO STA (23:21)
[2022-11-15] MEDS ORDERED: metroNIDAZOLE 500 MG TAB PO STA (23:21)
--- NOTE | 2022-11-15 23:24 | ED ---
Abdominal Pain HPI - General Chief Complaint: Abdominal Pain Stated Complaint: Recheck Time Seen by Provider: 11/15/22 20:48 Source: patient Mode of arrival: ambulatory Limitations: no limitations - History of Present Illness Initial Comments: This patient is a 32-year-old woman presenting to have evaluation of left sided abdominal pain. The pain had come on last week and she was seen here a few days ago. She had workup at that time that did not reveal exact etiology. She was given prescription for symptomatic relief. She continues to have aching pain on the left side both upper and lower quadrants. She states the pain is worse when she eats. She has had some associated nausea. Patient followed up with her primary physician was told she may have urinary tract infection as well. She was told if she was not feeling better or if she is feeling any worse to go to emergency Department and she therefore comes here because she is feeling a little worse. MD Complaint: abdominal pain -: days(s) Location: LUQ, LLQ Radiation: none Migration to: no migration Severity: moderate Quality: aching Consistency: constant Improves With: nothing Worsens With: eating Associated Symptoms: nausea, diarrhea - Related Data LMP (females 10-50): last week Previous Rx's Medication Instructions Recorded Ondansetron Odt [Zofran ODT] 4 mg PO Q8HR PRN #10 tab 11/15/22 Sulfamethox-Tmp 800-160Mg [Bactrim 1 each PO Q12HR #14 tab 11/15/22 Ds] metroNIDAZOLE [Flagyl] 500 mg PO TID #21 tab 11/15/22 traMADol HCl [Ultram] 50 mg PO Q6H PRN #15 tab 11/15/22 Allergies Allergy/AdvReac Type Severity Reaction Status Date / Time amoxicillin [Amoxicillin] AdvReac Abdominal Verified 11/15/22 18:39 Pain ciprofloxacin [From Cipro] AdvReac itching, Verified 11/15/22 18:39 chest pain, swelling Review of Systems ROS Statement: Those systems with pertinent positive or pertinent negative responses have been documented in the HPI. ROS Other: All systems not noted in ROS Statement are negative. Constitutional: Denies: fever, chills Respiratory: Denies: cough, dyspnea Cardiovascular: Denies: chest pain, palpitations, edema Gastrointestinal: Reports: abdominal pain, nausea, diarrhea. Denies: vomiting, constipation, melena, hematochezia Genitourinary: Denies: dysuria, hematuria, discharge, abnormal menses Musculoskeletal: Denies: back pain Skin: Denies: rash Neurological: Denies: headache, weakness, numbness Past Medical History Past Medical History: Pneumonia Additional Past Medical History / Comment(s): heart valve problem-HAD RECENT ECHO AND NO CHANGES. SEASONAL ALLERGIES History of Any Multi-Drug Resistant Organisms: None Reported Past Surgical History: Tonsillectomy, Tubal Ligation Additional Past Surgical History / Comment(s): D & C, nasal surgery, laparoscopy, bladder sling Past Anesthesia/Blood Transfusion Reactions: No Reported Reaction Past Psychological History: Anxiety Smoking Status: Current every day smoker Past Alcohol Use History: None Reported Past Drug Use History: Marijuana - Past Family History Mother Family Medical History: Hypertension General Exam Limitations: no limitations General appearance: alert, in no apparent distress Eye exam: Present: normal appearance Neck exam: Present: normal inspection Respiratory exam: Present: normal lung sounds bilaterally. Absent: respiratory distress, wheezes, rales, rhonchi, stridor Cardiovascular Exam: Present: regular rate, normal rhythm, normal heart sounds. Absent: systolic murmur, diastolic murmur, rubs, gallop GI/Abdominal exam: Present: soft. Absent: distended, tenderness, guarding, rebound, rigid, mass Extremities exam: Present: normal inspection, normal capillary refill. Absent: pedal edema, calf tenderness Back exam: Present: normal inspection. Absent: CVA tenderness (R), CVA tenderness (L) Neurological exam: Present: alert Skin exam: Present: warm, dry, intact, normal color. Absent: rash Course Vital Signs 11/15/22 11/15/22 11/15/22 18:36 20:27 23:14 Temperature 98.6 F 98.8 F 98.6 F Pulse Rate 67 68 61 Respiratory 20 19 17 Rate Blood Pressure 144/98 169/84 136/83 O2 Sat by Pulse 99 98 98 Oximetry Medical Decision Making - Medical Decision Making This patient is a 32-year-old woman with continuing abdominal pain on the left side second visit to emergency department without much relief. She does have some tenderness on the left side though no rebound or guarding, no surgical signs. She has workup with lab tests and as computed tomography scan that I interpreted as showing some enhancement of the intra-abdominal fat on the left side. Reviewed the radiology notes this was noted previously. Given these findings, we will give patient course of antibiotics, have her follow with her primary physician and also do recommend colonoscopy, patient to follow with gastroenterology. We discussed appropriate further care and follow-up as well as return parameters. Was pt. sent in by a medical professional or institution (RENNY Minor, LICENSED PSYCHIATRIC TECHNICIAN, urgent care, hospital, or [facility]...) When possible be specific @ -Patient was recommended to be seen in the emergency department by her primary physician Did you speak to anyone other than the patient for history (EMS, parent, family, police, friend...)? What history was obtained from this source @ -[No] Did you review nursing and triage notes (agree or disagree)? Why? @ -[I reviewed and agree with nursing and triage notes] Were old charts reviewed (outside hosp., previous admission, EMS record, old EKG, old radiological studies, urgent care reports/EKG's, [facility] records)? Report findings @ -[old charts were reviewed] Differential Diagnosis (chest pain, altered mental status, abdominal pain women, abdominal pain men, vaginal bleeding, weakness, fever, dyspnea, syncope, headache, dizziness, GI bleed, back pain, seizure, CVA, palpatations, mental health, musculoskeletal)? @ -[Differential Abdominal Pain Men: Appendicitis, cholecystitis, diverticulosis, ischemic bowel, pancreatitis, hepatitis, UTI, gastroenteritis, AAA, incarcerated hernia, bowel obstruction, constipation, inflammatory bowel, hepatitis, peptic ulcer disease, splenic infarction, perforated viscus, testicular torsion, this is not meant to be an all-inclusive list EKG interpreted by me (3pts min.). @ -[ X-rays interpreted by me (1pt min.). @ -[None done] CT interpreted by me (1pt min.). @ -[As above U/S interpreted by me (1pt. min.). @ -[None done] What testing was considered but not performed or refused? (CT, X-rays, U/S, labs)? Why? @ -[None] What meds were considered but not given or refused? Why? @ -[None] Did you discuss the management of the patient with other professionals (professionals i.e. RENNY Minor, LICENSED PSYCHIATRIC TECHNICIAN, lab, RT, psych nurse, social services assistant, point of care specialist, teacher, admissions officer, case technician)? Give summary @ -[No] Was smoking cessation discussed for >3mins.? @ -[No] Was critical care preformed (if so, how long)? @ -[No] Were there social determinants of health that impacted care today? How? (Homelessness, low income, unemployed, alcoholism, drug addiction, transportation, low edu. Level, literacy, decrease access to med. care, longterm, rehab)? @ -[No] Was there de-escalation of care discussed even if they declined (Discuss DNR or withdrawal of care, Hospice)? DNR status @ -[No] What co-morbidities impacted this encounter? (DM, HTN, Smoking, COPD, CAD, Cancer, CVA, ARF, Chemo, Hep., AIDS, mental health diagnosis, sleep apnea, morbid obesity)? @ -[None] Was patient admitted / discharged? Hospital course, mention meds given and route, prescriptions, significant lab abnormalities, going to OR and other pertinent info. @ -[Discharged Undiagnosed new problem with uncertain prognosis? @ -[No] Drug Therapy requiring intensive monitoring for toxicity (Heparin, Nitro, Insulin, Cardizem)? @ -[No] Were any procedures done? @ -[No] Diagnosis/symptom? @ -[Acute left-sided abdominal pain Acute urinary tract infection Acute, or Chronic, or Acute on Chronic? @ -[default] Uncomplicated (without systemic symptoms) or Complicated (systemic symptoms)? @ -[Uncomplicated Side effects of treatment? @ -[No] Exacerbation, Progression, or Severe Exacerbation? @ -[No] Poses a threat to life or bodily function? How? (Chest pain, USA, CA, pneumonia, PE, COPD, DKA, ARF, appy, cholecystitis, CVA, Diverticulitis, Homicidal, Suicidal, threat to staff... and all critical care pts) @ -[No] - Lab Data Result diagrams: 11/15/22 20:55 11/15/22 20:55 Lab Results 11/15/22 11/15/22 11/15/22 Range/Units 20:55 20:55 20:55 WBC 6.6 (3.8-10.6) k/uL RBC 6.22 H (3.80-5.40) m/uL Hgb 18.3 H (11.4-16.0) gm/dL Hct 52.8 H (34.0-46.0) % MCV 84.8 (80.0-100.0) fL MCH 29.5 (25.0-35.0) pg MCHC 34.8 (31.0-37.0) g/dL RDW 13.2 (11.5-15.5) % Plt Count 132 L (150-450) k/uL MPV 12.0 Neutrophils % 52 % Lymphocytes % 28 % Monocytes % 10 % Eosinophils % 3 % Basophils % 1 % Neutrophils # 3.4 (1.3-7.7) k/uL Lymphocytes # 1.9 (1.0-4.8) k/uL Monocytes # 0.7 (0-1.0) k/uL Eosinophils # 0.2 (0-0.7) k/uL Basophils # 0.0 (0-0.2) k/uL RBC Morphology Normal Sodium (137-145) mmol/L Potassium (3.5-5.1) mmol/L Chloride (98-107) mmol/L Carbon Dioxide (22-30) mmol/L Anion Gap mmol/L BUN (7-17) mg/dL Creatinine (0.52-1.04) mg/dL Est GFR (CKD-EPI)AfAm (>60 ml/min/1.73 sqM) Est GFR (CKD-EPI)NonAf (>60 ml/min/1.73 sqM) Glucose (74-99) mg/dL Calcium (8.4-10.2) mg/dL Total Bilirubin (0.2-1.3) mg/dL AST (14-36) U/L ALT (4-34) U/L Alkaline Phosphatase (38-126) U/L Total Protein (6.3-8.2) g/dL Albumin (3.5-5.0) g/dL Amylase (30-110) U/L Lipase (23-300) U/L Urine Color Yellow Urine Appearance Cloudy H (Clear) Urine pH 6.0 (5.0-8.0) Ur Specific [place] 1.029 (1.001-1.035) Urine Protein 2+ H (Negative) Urine Glucose (UA) Negative (Negative) Urine Ketones Negative (Negative) Urine Blood Small H (Negative) Urine Nitrite Negative (Negative) Urine Bilirubin Negative (Negative) Urine Urobilinogen <2.0 (<2.0) mg/dL Ur Leukocyte Esterase Large H (Negative) Urine RBC 21 H (0-5) /hpf Urine WBC 26 H (0-5) /hpf Ur Squamous Epith Cells 43 H (0-4) /hpf Hyaline Casts 2 (0-2) /lpf Urine Mucus Few H (None) /hpf Urine HCG, Qual Not Detected (Not Detectd) 11/15/22 Range/Units 20:55 WBC (3.8-10.6) k/uL RBC (3.80-5.40) m/uL Hgb (11.4-16.0) gm/dL Hct (34.0-46.0) % MCV (80.0-100.0) fL MCH (25.0-35.0) pg MCHC (31.0-37.0) g/dL RDW (11.5-15.5) % Plt Count (150-450) k/uL MPV Neutrophils % % Lymphocytes % % Monocytes % % Eosinophils % % Basophils % % Neutrophils # (1.3-7.7) k/uL Lymphocytes # (1.0-4.8) k/uL Monocytes # (0-1.0) k/uL Eosinophils # (0-0.7) k/uL Basophils # (0-0.2) k/uL RBC Morphology Sodium 138 (137-145) mmol/L Potassium 4.2 (3.5-5.1) mmol/L Chloride 104 (98-107) mmol/L Carbon Dioxide 24 (22-30) mmol/L Anion Gap 10 mmol/L BUN 16 (7-17) mg/dL Creatinine 0.57 (0.52-1.04) mg/dL Est GFR (CKD-EPI)AfAm >90 (>60 ml/min/1.73 sqM) Est GFR (CKD-EPI)NonAf >90 (>60 ml/min/1.73 sqM) Glucose 83 (74-99) mg/dL Calcium 9.5 (8.4-10.2) mg/dL Total Bilirubin 0.7 (0.2-1.3) mg/dL AST 29 (14-36) U/L ALT 21 (4-34) U/L Alkaline Phosphatase 63 (38-126) U/L Total Protein 8.5 H (6.3-8.2) g/dL Albumin 4.7 (3.5-5.0) g/dL Amylase 83 (30-110) U/L Lipase 177 (23-300) U/L Urine Color Urine Appearance (Clear) Urine pH (5.0-8.0) Ur Specific [place] (1.001-1.035) Urine Protein (Negative) Urine Glucose (UA) (Negative) Urine Ketones (Negative) Urine Blood (Negative) Urine Nitrite (Negative) Urine Bilirubin (Negative) Urine Urobilinogen (<2.0) mg/dL Ur Leukocyte Esterase (Negative) Urine RBC (0-5) /hpf Urine WBC (0-5) /hpf Ur Squamous Epith Cells (0-4) /hpf Hyaline Casts (0-2) /lpf Urine Mucus (None) /hpf Urine HCG, Qual (Not Detectd) Disposition Clinical Impression: Abdominal pain Disposition: HOME SELF-CARE Condition: Good Instructions (If sedation given, give patient instructions): Abdominal Pain (ED) Prescriptions: Sulfamethox-Tmp 800-160Mg [Bactrim Ds] 1 each PO Q12HR #14 tab metroNIDAZOLE [Flagyl] 500 mg PO TID #21 tab traMADol HCl [Ultram] 50 mg PO Q6H PRN #15 tab PRN Reason: Pain Ondansetron Odt [Zofran ODT] 4 mg PO Q8HR PRN #10 tab PRN Reason: Nausea Is patient prescribed a controlled substance at d/c from ED?: Yes Referrals: Kenrtell Bell MD [Primary Care Provider] - 1-2 days Elsa Ng MD [STAFF PHYSICIAN] - 1-2 days
== END 2022-11-15 23:32 | disposition home or self-care (01) ==
LOC: EC 18:01
DX: R10.32 Left lower quadrant pain (principal); F41.9 Anxiety disorder, unspecified; F17.200 Nicotine dependence, unspecified, uncomplicated; F12.90 Cannabis use, unspecified, uncomplicated; Z88.0 Allergy status to penicillin; Z88.1 Allergy status to other antibiotic agents
CPT/HCPCS: 36415; 80053; 82150; 83690; 85025; 81001; 81025; 74176; 99284; 96374; J2270

== ENCOUNTER 2022-12-28 15:48 | Emergency (ER) | payer OTHER ==
[2022-12-28 15:53] VITALS: BP 134/97; PULSE 95; RESP 20
[2022-12-28] MEDS ORDERED: SODIUM CHLORIDE 0.9% 1,000 ML IV STA (16:31)
--- NOTE | 2022-12-28 16:38 | ED ---
Dizziness HPI - General Chief Complaint: Syncope Stated Complaint: black out spells Time Seen by Provider: 12/28/22 16:20 Source: patient, RN notes reviewed Mode of arrival: ambulatory Limitations: no limitations - History of Present Illness Initial Comments: This is a 32-year-old female who presents to the emergency department for "blackout spells ". States that over the last 2 days, she has had episodes where she becomes dizzy, gets tunnel vision, becomes nauseous, and feels like she will pass out. She has never completely lost consciousness, but feels like she could. States that during these episodes she feels like she gets weak and felt like the left side of her face was drooping. Over the course of 2 days, these episodes have increased in both frequency and intensity. Denies any history of similar symptoms in the past. Reports a headache and nausea at this time. She does have a history of mitral valve prolapse which has been stable. Denies any fevers, chills, sore throat, cough, dyspnea, chest pain, palpitations, abdominal pain, vomiting, diarrhea, or back pain. MD Complaint: dizziness, near syncope Onset/Timin -: days(s) - Related Data Previous Rx's Medication Instructions Recorded Ondansetron Odt [Zofran ODT] 4 mg PO Q8HR PRN #10 tab 11/15/22 Sulfamethox-Tmp 800-160Mg [Bactrim 1 each PO Q12HR #14 tab 11/15/22 Ds] metroNIDAZOLE [Flagyl] 500 mg PO TID #21 tab 11/15/22 traMADol HCl [Ultram] 50 mg PO Q6H PRN #15 tab 11/15/22 Ketorolac [Toradol] 10 mg PO Q6HR PRN #12 tab 12/28/22 Ondansetron Odt [Zofran Odt] 4 mg PO Q8HR PRN #10 tab 12/28/22 Allergies Allergy/AdvReac Type Severity Reaction Status Date / Time amoxicillin [Amoxicillin] AdvReac Abdominal Verified 12/28/22 15:53 Pain ciprofloxacin [From Cipro] AdvReac itching, Verified 12/28/22 15:53 chest pain, swelling Review of Systems ROS Statement: Those systems with pertinent positive or pertinent negative responses have been documented in the HPI. ROS Other: All systems not noted in ROS Statement are negative. 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 SEASONAL ALLERGIES History of Any Multi-Drug Resistant Organisms: None Reported Past Surgical History: Tonsillectomy, Tubal Ligation Additional Past Surgical History / Comment(s): D & C, nasal surgery, laparoscopy, bladder sling Past Anesthesia/Blood Transfusion Reactions: No Reported Reaction Past Psychological History: Anxiety Smoking Status: Current every day smoker Past Alcohol Use History: None Reported Past Drug Use History: Marijuana - Past Family History Mother Family Medical History: Hypertension General Exam Limitations: no limitations General appearance: alert, in no apparent distress Head exam: Present: atraumatic, normocephalic, normal inspection Eye exam: Present: normal appearance, PERRL, EOMI. Absent: scleral icterus, conjunctival injection, periorbital swelling Respiratory exam: Present: normal lung sounds bilaterally. Absent: respiratory distress, wheezes, rales, rhonchi, stridor Cardiovascular Exam: Present: regular rate, normal rhythm, normal heart sounds. Absent: systolic murmur, diastolic murmur, rubs, gallop, clicks Neurological exam: Present: alert, oriented X3, CN II-XII intact Expanded Neurological exam: Present: other (NIH is 0) Cerebellar function: Finger to Nose: Normal, Heel to Ruiz: Normal, Romberg: Normal Motor strength exam: RUE: 5, LUE: 5, RLE: 5, LLE: 5 Psychiatric exam: Present: normal affect, normal mood Skin exam: Present: warm, dry, intact, normal color. Absent: rash Course Vital Signs 12/28/22 12/28/22 15:49 17:31 Temperature 99.1 F 98.9 F Pulse Rate 95 Respiratory 20 Rate Blood Pressure 134/97 O2 Sat by Pulse 98 Oximetry Medical Decision Making - Medical Decision Making This is a 32-year-old female who presents to the emergency department for dizziness and presyncope. Was pt. sent in by a medical professional or institution? @ -No Did you speak to anyone other than the patient for history? @ -No Did you review nursing and triage notes? @ -Yes, and I agree, it is accurate with regards to the patient's symptoms. Were old charts reviewed? @ -Echocardiogram from 04/17/22 revealing no significant findings. Differential Diagnosis? @ -Differential Dizziness: Benign paroxysmal positional Vertigo, Menieres disease, otitis media, acoustic neuroma, vertebrobasilar insufficiency, cerebellar stroke, encephalitis, hypovolemic, arrhythmia, coronary artery syndrome, anemia, this is not meant to be an all-inclusive list EKG interpreted by me (3pts min.)? @ -EKG interpreted by me demonstrating the following: Sinus rhythm. Ventric ular rate 79 beats per minute, UT interval 149 ms, QRS duration 77 ms, QTC 381 ms. X-rays interpreted by me (1pt min.)? @ -Chest x-ray obtained, my interpretation identifies no localized consolidations or infiltrates. CT interpreted by me (1pt min.)? @ -Computed tomography scan of the brain obtained. My interpretation karissa ntifies no evidence of an acute intracranial hemorrhage or ischemic changes. CTA of the brain obtained as well. My interpretation identifies no evidence of stenosis or intracranial aneurysm. U/S interpreted by me (1pt. min.)? @ -Not obtained What testing was considered but not performed? (CT, X-rays, U/S, labs)? Why? @ -None What meds were considered but not given? Why? @ -None Did you discuss the management of the patient with other professionals? @ -No Did you reconcile home meds? @ -No Was smoking cessation discussed for >3mins.? @ -No Was critical care preformed (if so, how long)? @ -No Were there social determinants of health that impacted care today? How? (Homelessness, low income, unemployed, alcoholism, drug addiction, transportation, low edu. Level, literacy, decrease access to med. care, [facility], rehab)? @ -No Was there de-escalation of care discussed even if they declined? (Discuss DNR or withdrawal of care, Hospice)? @ -No What co-morbidities impacted this encounter? (DM, HTN, Smoking, COPD, CAD, Cancer, CVA, Hep., AIDS, mental health diagnosis, sleep apnea, morbid obesity)? @ -Mitral valve prolapse Was patient admitted / discharged? @ -Discharged. Lab work obtained and found to be nonactionable. IV fluids and zofran administered initially. Chest x-ray obtained revealing no acute findings. CT scan of the brain without contrast and CTA of the head obtained revealing no evidence of an intracranial hemorrhage, ischemic changes, or aneurysm. NIH is 0. When I went to reevaluate the patient, she states that she started to get a left-sided migraine. She does report a history of migraines. She was subsequently given Toradol, Decadron, and Benadryl, however this does not adequately control her pain and she required a dose of Dilauded. Patient felt much better afterwards and stable for discharge home. Prescription for Zofran and Toradol provided with dosing instructions reviewed. Patient is instructed to take the Toradol with Tylenol if needed and avoid any other [id number] anti-inflammatories such as ibuprofen with the Toradol. Otherwise advised she follow-up with her primary care provider for reevaluation of ongoing symptoms. Undiagnosed new problem with uncertain prognosis? @ -None Drug Therapy requiring intensive monitoring for toxicity (Heparin, Nitro, Insulin, Cardizem)? @ -None Were any procedures done? @ -None Diagnosis/symptom? @ -Dizziness, presyncope Acute, or Chronic, or Acute on Chronic? @ -Acute Uncomplicated (without systemic symptoms) or Complicated (systemic symptoms)? @ -Uncomplicated Side effects of treatment? @ -None Exacerbation, Progression, or Severe Exacerbation] @ -Not applicable Poses a threat to life or bodily function? @ -No Return precautions reviewed in depth, the patient is instructed to return to the emergency department with any new, worsening, or concerning symptoms. Patient verbalized understanding. This case was discussed in detail with the attending ED physician, Dr. Godinez. Presentation, findings, and treatment plan discussed in detail as well. - Lab Data Result diagrams: 12/28/22 17:12 12/28/22 17:12 Lab Results 12/28/22 12/28/22 12/28/22 Range/Units 17:12 17:12 17:12 WBC 8.2 (3.8-10.6) k/uL RBC 5.41 H (3.80-5.40) m/uL Hgb 15.9 (11.4-16.0) gm/dL Hct 46.5 H (34.0-46.0) % MCV 86.0 (80.0-100.0) fL MCH 29.3 (25.0-35.0) pg MCHC 34.1 (31.0-37.0) g/dL RDW 13.0 (11.5-15.5) % Plt Count 206 (150-450) k/uL MPV 11.3 Neutrophils % (Manual) 57 % Lymphocytes % (Manual) 38 % Monocytes % (Manual) 2 % Eosinophils % (Manual) 3 % Neutrophils # (Manual) 4.67 (1.3-7.7) k/uL Lymphocytes # (Manual) 3.12 (1.0-4.8) k/uL Monocytes # (Manual) 0.16 (0-1.0) k/uL Eosinophils # (Manual) 0.25 (0-0.7) k/uL Nucleated RBCs 0 (0-0) /100 WBC Manual Slide Review Performed Large Platelets Present Sodium 137 (137-145) mmol/L Potassium 4.4 (3.5-5.1) mmol/L Chloride 102 (98-107) mmol/L Carbon Dioxide 24 (22-30) mmol/L Anion Gap 11 mmol/L BUN 17 (7-17) mg/dL Creatinine 0.63 (0.52-1.04) mg/dL Est GFR (CKD-EPI)AfAm >90 (>60 ml/min/1.73 sqM) Est GFR (CKD-EPI)NonAf >90 (>60 ml/min/1.73 sqM) Glucose 85 (74-99) mg/dL Calcium 9.6 (8.4-10.2) mg/dL Total Bilirubin 0.4 (0.2-1.3) mg/dL AST 28 (14-36) U/L ALT 21 (4-34) U/L Alkaline Phosphatase 62 (38-126) U/L Troponin I (0.000-0.034) ng/mL Total Protein 7.6 (6.3-8.2) g/dL Albumin 4.6 (3.5-5.0) g/dL TSH 1.310 (0.465-4.680) mIU/L HCG, Qual Not Detected Urine Color Colorless Urine Appearance Clear (Clear) Urine pH 6.5 (5.0-8.0) Ur Specific [place] >1.050 H (1.001-1.035) Urine Protein Negative (Negative) Urine Glucose (UA) Negative (Negative) Urine Ketones Negative (Negative) Urine Blood Negative (Negative) Urine Nitrite Negative (Negative) Urine Bilirubin Negative (Negative) Urine Urobilinogen <2.0 (<2.0) mg/dL Ur Leukocyte Esterase Moderate H (Negative) Urine RBC 2 (0-5) /hpf Urine WBC 4 (0-5) /hpf Ur Squamous Epith Cells 11 H (0-4) /hpf 12/28/22 Range/Units 17:12 WBC (3.8-10.6) k/uL RBC (3.80-5.40) m/uL Hgb (11.4-16.0) gm/dL Hct (34.0-46.0) % MCV (80.0-100.0) fL MCH (25.0-35.0) pg MCHC (31.0-37.0) g/dL RDW (11.5-15.5) % Plt Count (150-450) k/uL MPV Neutrophils % (Manual) % Lymphocytes % (Manual) % Monocytes % (Manual) % Eosinophils % (Manual) % Neutrophils # (Manual) (1.3-7.7) k/uL Lymphocytes # (Manual) (1.0-4.8) k/uL Monocytes # (Manual) (0-1.0) k/uL Eosinophils # (Manual) (0-0.7) k/uL Nucleated RBCs (0-0) /100 WBC Manual Slide Review Large Platelets Sodium (137-145) mmol/L Potassium (3.5-5.1) mmol/L Chloride (98-107) mmol/L Carbon Dioxide (22-30) mmol/L Anion Gap mmol/L BUN (7-17) mg/dL Creatinine (0.52-1.04) mg/dL Est GFR (CKD-EPI)AfAm (>60 ml/min/1.73 sqM) Est GFR (CKD-EPI)NonAf (>60 ml/min/1.73 sqM) Glucose (74-99) mg/dL Calcium (8.4-10.2) mg/dL Total Bilirubin (0.2-1.3) mg/dL AST (14-36) U/L ALT (4-34) U/L Alkaline Phosphatase (38-126) U/L Troponin I <0.012 (0.000-0.034) ng/mL Total Protein (6.3-8.2) g/dL Albumin (3.5-5.0) g/dL TSH (0.465-4.680) mIU/L HCG, Qual Urine Color Urine Appearance (Clear) Urine pH (5.0-8.0) Ur Specific [place] (1.001-1.035) Urine Protein (Negative) Urine Glucose (UA) (Negative) Urine Ketones (Negative) Urine Blood (Negative) Urine Nitrite (Negative) Urine Bilirubin (Negative) Urine Urobilinogen (<2.0) mg/dL Ur Leukocyte Esterase (Negative) Urine RBC (0-5) /hpf Urine WBC (0-5) /hpf Ur Squamous Epith Cells (0-4) /hpf - Radiology Data Radiology results: report reviewed, image reviewed Disposition Clinical Impression: Dizziness, Pre-syncope Disposition: HOME SELF-CARE Instructions (If sedation given, give patient instructions): Near Syncope (ED), Dizziness (ED) Additional Instructions: Return to the emergency department with any new, worsening, or concerning symptoms. You can try taking the Toradol as needed for pain relief. If you choose to take the Toradol, do not take ibuprofen or another hodn-zoc-rxqfift anti-inflammatory. Take one or the other. You may take it with Tylenol. You can take the Zofran up to every 8 hours as needed for nausea and vomiting. Follow up with your primary care provider in 1-2 days. Prescriptions: Ketorolac [Toradol] 10 mg PO Q6HR PRN #12 tab PRN Reason: Pain Ondansetron Odt [Zofran Odt] 4 mg PO Q8HR PRN #10 tab PRN Reason: Nausea And Vomiting Is patient prescribed a controlled substance at d/c from ED?: No Referrals: Kentrell Bell MD [Primary Care Provider] - 1-2 days
--- NOTE | 2022-12-28 16:49 | XR ---
EXAMINATION TYPE: XR chest 2V DATE OF EXAM: 12/28/2022 4:42 PM COMPARISON: Chest radiographs from 03/15/2022 TECHNIQUE: XR chest 2V Frontal and lateral views of the chest. CLINICAL INDICATION:Female, 32 years old with history of syncope; FINDINGS: Lungs/Pleura: There is no evidence of pleural effusion, focal consolidation, or pneumothorax. Pulmonary vascularity: Unremarkable. Heart/mediastinum: Cardiomediastinal silhouette is unremarkable. Musculoskeletal: No acute osseous pathology. IMPRESSION: No acute cardiopulmonary disease/process.
[2022-12-28] MEDS ORDERED: ONDANSETRON 4 MG/2 ML VIAL IVP STA (16:57)
--- NOTE | 2022-12-28 17:06 | CT ---
EXAMINATION TYPE: CT brain wo con CT DLP: combined 1995.8 mGycm, Automated exposure control for dose reduction was used. DATE OF EXAM: 12/28/2022 5:01 PM COMPARISON: CT brain C-spine 06/16/2022 CLINICAL INDICATION:Female, 32 years old with history of Dizziness, blackouts, weakness, Dizziness, b lackouts, weakness TECHNIQUE: Brain: Multiple axial CT images of the brain were obtained without IV contrast. Coronal and sagittal reformats reviewed. FINDINGS: Brain: Extra-axial spaces: No abnormal extra-axial fluid collections. Ventricular system: Within normal limits Cerebral parenchyma: No acute intraparenchymal hemorrhage or mass effect. The esteban-white junction is well differentiated. Cerebellum: Unremarkable. Mass effect: No evidence of midline shift. Intracranial vasculature: unremarkable Soft tissues: Normal. Calvarium/osseous structures: No depressed skull fracture. Paranasal sinuses and mastoid air cells: Clear Visualized orbits: Orbital contents are intact. IMPRESSION: No acute intracranial process.
--- NOTE | 2022-12-28 17:10 | CT ---
EXAMINATION TYPE: CT angio head CT DLP: combined 1995.8 mGycm, Automated exposure control for dose reduction was used. DATE OF EXAM: 12/28/2022 5:00 PM COMPARISON: . CLINICAL INDICATION:Female, 32 years old with history of Dizziness, blackouts, weakness; PHH, Dizzine ss, blackouts, weakness TECHNIQUE: Axially acquired helical CT angiogram of the head was obtained with contrast utilizing 70 cc of Isovue-370 administered intravenously. Axial images are supplemented with 3D reconstructions wh ich were post-processed at an independent workstation. NASCET criteria used. FINDINGS: No evidence of acute intracranial hemorrhage, mass effect, or midline shift. The ventricles, sulci, a nd cisterns are unremarkable. The visualized portions of the internal carotid arteries, middle cerebral arteries, anterior cerebral arteries, and posterior cerebral arteries are patent. The basilar and vertebral arteries are patent. IMPRESSION: No evidence of high-grade stenosis or intracranial aneurysm.
[2022-12-28 17:32] VITALS: TEMP 98.9
[2022-12-28 17:44] LABS: ALT 21 U/L (4-34); AST 28 U/L (14-36); African American GFR (CKD) >90 (>60 ml/min/1.73 sqM); Albumin 4.6 g/dL (3.5-5.0); Alkaline Phosphatase 62 U/L (38-126); Anion Gap 11 mmol/L; Blood Urea Nitrogen 17 mg/dL (7-17); Calcium 9.6 mg/dL (8.4-10.2); Carbon Dioxide 24 mmol/L (22-30); Chloride 102 mmol/L (98-107); Glucose 85 mg/dL (74-99); HCT 46.5 % (34.0-46.0); HGB 15.9 gm/dL (11.4-16.0); MCH 29.3 pg (25.0-35.0); MCHC 34.1 g/dL (31.0-37.0); Mean Platelet Volume 11.3; Non-African American GFR(CKD) >90 (>60 ml/min/1.73 sqM); Platelet Count 206 k/uL (150-450); Potassium 4.4 mmol/L (3.5-5.1); RBC 5.41 m/uL (3.80-5.40); Sodium 137 mmol/L (137-145); Total Bilirubin 0.4 mg/dL (0.2-1.3); Total Protein 7.6 g/dL (6.3-8.2); WBC 8.2 k/uL (3.8-10.6)
[2022-12-28 17:46] LABS: Appearance,Urine Clear (Clear); Bilirubin,Urine Negative (Negative); Blood,Urine Negative (Negative); Color,Urine Colorless; Glucose,Urine (UA) Negative (Negative); Ketones,Urine Negative (Negative); Leukocyte Esterase,Urine Moderate (Negative); Nitrite,Urine Negative (Negative); PH, Urine 6.5 (5.0-8.0); Protein,Urine Negative (Negative); RBC,Urine 2 /hpf (0-5); Squamous Epithelial Cell,Urine 11 /hpf (0-4); Urobilinogen,Urine <2.0 mg/dL (<2.0); WBC,Urine 4 /hpf (0-5)
[2022-12-28 17:47] LABS: Specific Gravity,Urine >1.050 (1.001-1.035)
[2022-12-28 17:49] LABS: HCG,Qualitative Serum Not Detected
[2022-12-28] MEDS ORDERED: DEXAMETHASONE SOD PHOSPHATE 10 MG/ML 1 ML VIAL IVP STA (18:37)
[2022-12-28] MEDS ORDERED: KETOROLAC 15 MG/ML 1 ML VIAL IVP STA (18:37)
[2022-12-28] MEDS ORDERED: diphenhydrAMINE 50 MG/ML 1 ML VIAL IVP STA (18:37)
[2022-12-28 19:09] LABS: Eosinophils # (M) 0.25 k/uL (0-0.7); Lymphocytes # (M) 3.12 k/uL (1.0-4.8); Monocytes # (M) 0.16 k/uL (0-1.0); Neutrophils # (M) 4.67 k/uL (1.3-7.7); Neutrophils % (M) 57 %; Nucleated Red Blood Cells 0 /100 WBC (0-0); Total Cells Counted 100
[2022-12-28 19:10] LABS: Large Platelets Present
[2022-12-28] MEDS ORDERED: HYDROmorphone 0.5 MG/0.5 ML SYRINGE IVP STA (19:31)
[2022-12-28] MEDS ORDERED: ONDANSETRON 4 MG ODT STARTER PACK 2 TAB BTL PO STA (19:45)
[2022-12-28] MEDS ORDERED: IBUPROFEN 600 MG STARTER PACK 4 TAB BTL PO STA (19:45)
[2022-12-28] MEDS ORDERED: ACET/COD 300 MG/30 MG STARTER PACK 6 TAB BTL PO STA (19:45)
[2022-12-28] MEDS ORDERED: SUMAtriptan succinate 50 MG TAB PO STA (19:47)
== END 2022-12-28 20:28 | disposition home or self-care (01) ==
LOC: EC 15:48
DX: R55 Syncope and collapse (principal); R42 Dizziness and giddiness; F17.200 Nicotine dependence, unspecified, uncomplicated; F12.90 Cannabis use, unspecified, uncomplicated; Z88.0 Allergy status to penicillin; Z88.1 Allergy status to other antibiotic agents
CPT/HCPCS: 36415; 93005; 80053; 84443; 84484; 85025; 81001; 84703; 71046; 70496; 70450; 99285; 96374; 96375 ×4; 96361; J1200; J1100; J2405; J1885; S0119; J1170; Q9967

== ENCOUNTER 2023-02-26 00:48 | Emergency (ER) | payer OTHER ==
[2023-02-26] MEDS ORDERED: SODIUM CHLORIDE 0.9% 1,000 ML IV STA (02:31)
[2023-02-26] MEDS: LORazepam 1 MG TAB PO STA ×2 (02:49→02:59)
[2023-02-26 02:58] LABS: HCT 47.9 % (34.0-46.0); HGB 16.6 gm/dL (11.4-16.0); MCH 30.6 pg (25.0-35.0); MCHC 34.6 g/dL (31.0-37.0); MCV 88.4 fL (80.0-100.0); Mean Platelet Volume 9.6; Platelet Count 183 k/uL (150-450); RBC 5.42 m/uL (3.80-5.40); RDW 13.3 % (11.5-15.5); WBC 10.3 k/uL (3.8-10.6)
[2023-02-26] MEDS ORDERED: LORazepam 1 MG TAB PO STA (02:59)
[2023-02-26 03:04] LABS: Appearance,Urine Clear (Clear); Bilirubin,Urine Negative (Negative); Blood,Urine Trace (Negative); Color,Urine Yellow; Glucose,Urine (UA) Negative (Negative); Ketones,Urine Negative (Negative); Leukocyte Esterase,Urine Large (Negative); Nitrite,Urine Negative (Negative); PH, Urine 5.5 (5.0-8.0); Protein,Urine Negative (Negative); Specific Gravity,Urine 1.025 (1.001-1.035); Urobilinogen,Urine <2.0 mg/dL (<2.0)
[2023-02-26 03:13] LABS: INR 0.9 (<1.2); Partial Thromboplastin Time 22.7 sec (22.0-30.0); Prothrombin Time 9.4 sec (9.0-12.0)
[2023-02-26 03:17] LABS: RBC,Urine 1 /hpf (0-5); WBC,Urine 3 /hpf (0-5)
[2023-02-26 03:18] LABS: Squamous Epithelial Cell,Urine 15 /hpf (0-4)
[2023-02-26 03:33] LABS: ALT 19 U/L (4-34); AST 24 U/L (14-36); African American GFR (CKD) >90 (>60 ml/min/1.73 sqM); Albumin 4.7 g/dL (3.5-5.0); Alkaline Phosphatase 92 U/L (38-126); Amylase 82 U/L (30-110); Anion Gap 10 mmol/L; Blood Urea Nitrogen 24 mg/dL (7-17); Calcium 9.7 mg/dL (8.4-10.2); Carbon Dioxide 22 mmol/L (22-30); Chloride 107 mmol/L (98-107); Glucose 104 mg/dL (74-99); Lipase 182 U/L (23-300); Magnesium 2.1 mg/dL (1.6-2.3); Non-African American GFR(CKD) >90 (>60 ml/min/1.73 sqM); Potassium 4.6 mmol/L (3.5-5.1); Sodium 139 mmol/L (137-145); Total Bilirubin 0.4 mg/dL (0.2-1.3); Total Protein 8.5 g/dL (6.3-8.2)
--- NOTE | 2023-02-26 03:33 | ED ---
Chest Pain HPI - General Chief Complaint: Chest Pain Stated Complaint: Chest Pain Time Seen by Provider: 02/26/23 02:23 Source: patient Mode of arrival: ambulatory Limitations: no limitations - History of Present Illness Initial Comments: 32-year-old female presenting with chief complaint of chest pain. Pain is on both sides of the chest and states it radiates to both sides of her neck. She states it is a pressure-like pain and "feels like someone was breaking all of my bones". The pain started around 11:00 this evening. She admits to shortness of breath. She states that she had an episode of palpitations. States that she has been nauseous and has vomited once. Admits to recent dry unproductive cough. No fever, chills, congestion, sore throat. No abdominal pain. No numbness, tingling, weakness. - Related Data Previous Rx's Medication Instructions Recorded Ondansetron Odt [Zofran ODT] 4 mg PO Q8HR PRN #10 tab 11/15/22 Sulfamethox-Tmp 800-160Mg [Bactrim 1 each PO Q12HR #14 tab 11/15/22 Ds] metroNIDAZOLE [Flagyl] 500 mg PO TID #21 tab 11/15/22 traMADol HCl [Ultram] 50 mg PO Q6H PRN #15 tab 11/15/22 Ketorolac [Toradol] 10 mg PO Q6HR PRN #12 tab 12/28/22 Ondansetron Odt [Zofran Odt] 4 mg PO Q8HR PRN #10 tab 12/28/22 Allergies Allergy/AdvReac Type Severity Reaction Status Date / Time amoxicillin [Amoxicillin] AdvReac Abdominal Verified 02/26/23 00:52 Pain ciprofloxacin [From Cipro] AdvReac itching, Verified 02/26/23 00:52 chest pain, swelling Review of Systems ROS Statement: Those systems with pertinent positive or pertinent negative responses have been documented in the HPI. ROS Other: All systems not noted in ROS Statement are negative. EKG Findings - EKG Comments: EKG Findings:: Sinus rhythm ventricular rate 77. WA interval 147. QRS 90. QT 375. QTC 46. No ischemic changes. 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 SEASONAL ALLERGIES History of Any Multi-Drug Resistant Organisms: None Reported Past Surgical History: Tonsillectomy, Tubal Ligation Additional Past Surgical History / Comment(s): D & C, nasal surgery, laparoscopy, bladder sling Past Anesthesia/Blood Transfusion Reactions: No Reported Reaction Past Psychological History: Anxiety Smoking Status: Current every day smoker Past Alcohol Use History: None Reported Past Drug Use History: Marijuana - Past Family History Mother Family Medical History: Hypertension General Exam Limitations: no limitations General appearance: alert, anxious Head exam: Present: atraumatic, normocephalic, normal inspection Eye exam: Present: normal appearance, EOMI. Absent: scleral icterus, periorbital swelling Neck exam: Present: normal inspection, full ROM Respiratory exam: Present: normal lung sounds bilaterally. Absent: respiratory distress, wheezes, rales, rhonchi, stridor Cardiovascular Exam: Present: regular rate, normal rhythm, normal heart sounds. Absent: systolic murmur, diastolic murmur, rubs, gallop, clicks Neurological exam: Present: alert, oriented X3, CN II-XII intact Psychiatric exam: Present: anxious Skin exam: Present: warm, dry, intact, normal color. Absent: rash Course Vital Signs 02/26/23 02/26/23 02/26/23 00:50 03:25 04:37 Temperature 98.4 F 98.2 F Pulse Rate 94 65 74 Respiratory 26 H 20 18 Rate Blood Pressure 174/85 151/89 117/58 O2 Sat by Pulse 97 98 96 Oximetry Chest Pain MDM - MDM Was pt. sent in by a medical professional or institution (, PA, BOX STACKER, urgent care, hospital, or [facility]...) When possible be specific @ -No Did you speak to anyone other than the patient for history (EMS, parent, family, police, friend...)? What history was obtained from this source @ -No Did you review nursing and triage notes (agree or disagree)? Why? @ -I reviewed and agree with nursing and triage notes Were old charts reviewed (outside hosp., previous admission, EMS record, old EKG, old radiological studies, urgent care reports/EKG's, [facility] records)? Report findings @ -No old charts were reviewed Differential Diagnosis (chest pain, altered mental status, abdominal pain women, abdominal pain men, vaginal bleeding, weakness, fever, dyspnea, syncope, headache, dizziness, GI bleed, back pain, seizure, CVA, palpatations, mental health, musculoskeletal)? @ -MDM Differential Chest Pain: Anxiety, Stable Angina, Unstable Angina, STEMI, NSTEMI Aortic Dissection, Pneumothorax, Musculoskeletal, Esophageal Spasm GERD, Cholecystitis, Pancreatitis, Zoster This is not meant to be an all-inclusive list. EKG interpreted by me (3pts min.). @ -As above X-rays interpreted by me (1pt min.). @ -Chest x-ray shows no acute process CT interpreted by me (1pt min.). @ -None done U/S interpreted by me (1pt. min.). @ -None done What testing was considered but not performed or refused? (CT, X-rays, U/S, labs)? Why? @ -None What meds were considered but not given or refused? Why? @ -None Did you discuss the management of the patient with other professionals (professionals i.e. , PA, BOX STACKER, lab, RT, psych nurse, social media designer, hydrotherapist, teacher, [place] police officer, vocational case manager)? Give summary @ -No Was smoking cessation discussed for >3mins.? @ -No Was critical care preformed (if so, how long)? @ -No Were there social determinants of health that impacted care today? How? (Homelessness, low income, unemployed, alcoholism, drug addiction, transportation, low edu. Level, literacy, decrease access to med. care, senior living, rehab)? @ -No Was there de-escalation of care discussed even if they declined (Discuss DNR or withdrawal of care, Hospice)? DNR status @ -No What co-morbidities impacted this encounter? (DM, HTN, Smoking, COPD, CAD, Cancer, CVA, ARF, Chemo, Hep., AIDS, mental health diagnosis, sleep apnea, morbid obesity)? @ -None Was patient admitted / discharged? Hospital course, mention meds given and route, prescriptions, significant lab abnormalities, going to OR and other pertinent info. @ -32-year-old female presenting with chief complaint of chest pain. Patient has been here multiple occasions prior to this for similar complaints. On physical examination the patient is quite anxious. Otherwise physical examination is unremarkable. Lab work shows no leukocytosis. No evidence of hemoconcentration with hemoglobin 16.6 and hematocrit 47.9, combined with BUN of 24 there appears to be some degree of dehydration. Negative hCG and urine sample. Chest x-ray and EKG show no acute findings. Patient is given analgesia and anxioslysis. On reassessment she reports improvement in her symptoms. She is educated on today's findings in on management at home including alarm symptoms that should prompt immediate reevaluation. Follow-up with PCP. Report back to ER with any new or worsening symptoms. Discussed return parameters and answered all questions. Patient conveyed verbal understanding and agreed to the plan. I discussed this case in detail with my attending Dr. Brown Undiagnosed new problem with uncertain prognosis? @ -No Drug Therapy requiring intensive monitoring for toxicity (Heparin, Nitro, Insulin, Cardizem)? @ -No Were any procedures done? @ -No Diagnosis/symptom? @ -Atypical chest pain, dehydration, anxiety Acute, or Chronic, or Acute on Chronic? @ -Acute Uncomplicated (without systemic symptoms) or Complicated (systemic symptoms)? @ -Uncomplicated Side effects of treatment? @ -No Exacerbation, Progression, or Severe Exacerbation? @ -No Poses a threat to life or bodily function? How? (Chest pain, [place], [place], pneumonia, PE, COPD, DKA, ARF, appy, cholecystitis, CVA, Diverticulitis, Homicidal, Suicidal, threat to staff... and all critical care pts) @ -Low likelihood Disposition Clinical Impression: Dehydration, Atypical chest pain Disposition: HOME SELF-CARE Condition: Good Instructions (If sedation given, give patient instructions): Chest Pain (ED), Dehydration (ED) Additional Instructions: Follow-up with PCP. Report back to ER with any new or worsening symptoms. Is patient prescribed a controlled substance at d/c from ED?: No Referrals: Kentrell Bell MD [Primary Care Provider] - 1-2 days Time of Disposition: 04:24
[2023-02-26 03:38] LABS: Eosinophils # (M) 0.52 k/uL (0-0.7); Lymphocytes # (M) 2.78 k/uL (1.0-4.8); Monocytes # (M) 1.24 k/uL (0-1.0); Neutrophils # (M) 5.77 k/uL (1.3-7.7); Neutrophils % (M) 56 %; Nucleated Red Blood Cells 0 /100 WBC (0-0); Total Cells Counted 100
[2023-02-26] MEDS ORDERED: KETOROLAC 15 MG/ML 1 ML VIAL IVP STA (04:00)
[2023-02-26] MEDS ORDERED: MORPHINE SULFATE 4 MG/ML SYRINGE IVP STA (04:00)
--- NOTE | 2023-02-26 04:07 | XR ---
EXAM: XR Chest, 2 Views CLINICAL HISTORY: ITS.REASON XR Reason: Chest Pain TECHNIQUE: Frontal and lateral views of the chest. COMPARISON: No relevant prior studies available. FINDINGS: Lungs: No consolidation or mass. Pleural space: No effusion. Heart: No cardiomegaly. Bones/joints: No acute findings. IMPRESSION: No acute cardiopulmonary process.
[2023-02-26 04:39] VITALS: BP 117/58; PULSE 74; RESP 18; TEMP 98.2
== END 2023-02-26 04:41 | disposition home or self-care (01) ==
LOC: EC 00:48
DX: E86.0 Dehydration (principal); R07.89 Other chest pain; F12.90 Cannabis use, unspecified, uncomplicated; F17.200 Nicotine dependence, unspecified, uncomplicated; Z88.0 Allergy status to penicillin; Z88.8 Allergy status to other drugs, medicaments and biological substances; Z86.59 Personal history of other mental and behavioral disorders
CPT/HCPCS: 36415; 93005; 80053; 82150; 83690; 83735; 84484; 85025; 85610; 85730; 81001; 81025; 71046; 99285; 96374; 96375; 96361; J2270; J1885

== ENCOUNTER → 2023-07-03 | Outpatient (CLI) | payer OTHER ==
--- NOTE | 2023-07-03 19:43 | US ---
EXAMINATION TYPE: US transvaginal DATE OF EXAM: 07/03/2023 COMPARISON: NONE CLINICAL INDICATION: Female, 33 years old with history of E28.2 POLYCYSTIC OVARIAN SYNDROME; Intermit tent spotting and heavy bleeding x 3 months with pain. A1. Tubal TECHNIQUE: Transvaginal sonographic images were ordered to better assess the pelvic anatomy Date of LMP: unknown/AUB EXAM MEASUREMENTS: Uterus: 7.9 x 4.9 x 5.4 cm Endometrial Stripe: 0.7 cm Right Ovary: 2.5 x 2.4 x 3.3 cm for a volume of 10.4 mL. Left Ovary: 3.1 x 2.7 x 2.2 cm for a volume of 9.6 mL. 1. Uterus: Anteverted. Previous scar. There is a subserosal fibroid along the left anter ior uterine body measuring 2.3 x 2.0 x 1.7 cm. 2. Endometrium: wnl 3. Right Ovary: wnl 4. Left Ovary: wnl - dominant follicle measuring 1.4 cm. 5. Bilateral Adnexa: wnl 6. Posterior cul-de-sac: wnl IMPRESSION: 1. Previous scar. 2. Subserosal fibroid along the left anterior uterine body measuring 2.3 cm, not well seen previously . 3. A 1.4 cm dominant follicle or functional cyst of the left ovary.
== END | disposition home or self-care (01) ==
LOC: RADUSWWP 12:48
PROVIDERS: ATTEND Family Medicine
DX: D25.2 Subserosal leiomyoma of uterus (principal); E28.2 Polycystic ovarian syndrome; Z98.891 History of uterine scar from previous surgery
CPT/HCPCS: 76830

== ENCOUNTER → 2023-10-15 | Outpatient (CLI) | payer OTHER ==
[2023-10-15 16:08] LABS: Basophils # (A) 0.05 X 10*3/uL (0.00-0.10); Basophils % (A) 0.7 %; Eosinophils # (A) 0.08 X 10*3/uL (0.04-0.35); Eosinophils % (A) 1.1 %; HCT 47.1 % (37.2-46.3); HGB 15.6 g/dL (12.0-15.0); Lymphocytes # (A) 1.79 X 10*3/uL (0.90-5.00); Lymphocytes % (A) 25.2 %; MCH 29.4 pg (27.0-32.0); MCHC 33.1 g/dL (32.0-37.0); MCV 88.7 FL (80.0-97.0); Mean Platelet Volume 12.7 FL (9.5-12.2); Monocytes # (A) 0.47 X 10*3/uL (0.20-1.00); Monocytes % (A) 6.6 %; NRBC Per 100 WBC 0 X 10*3/uL (0.00-0.01); Neutrophils # (A) 4.67 X 10*3/uL (1.80-7.70); Neutrophils % (A) 65.8 %; Platelet Count 162 X 10*3/uL (140-440); RBC 5.31 X 10*6/uL (4.10-5.20); RDW 12.8 % (11.5-14.5)
[2023-10-15 16:40] LABS: Calcium 9.5 mg/dL (8.7-10.3); Carbon Dioxide 25.1 mmol/L (21.6-31.8); Chloride 102 mmol/L (96-109); Glucose 90 mg/dL (70-110); HCG,Quantitative Serum <3.0 mIU/mL (0.0-6.0); Iron 126 UG/DL (50-170); Magnesium 1.9 mg/dL (1.5-2.4); Phosphorus 2.8 mg/dL (2.4-5.1); Potassium 4.1 mmol/L (3.5-5.5); Sodium 138 mmol/L (135-145); Total Iron Binding Capacity 358 UG/DL (228-460)
[2023-10-15 16:41] LABS: Follicle Stimulating Hormone 2.6 mIU/mL; Luteinizing Hormone 7.3 mIU/mL
[2023-10-15 17:45] LABS: DHEA Sulfate 44.4 UG/DL (39.0-800.0); Insulin Level 6.9 mIU/mL (3.0-25.0)
== END | disposition home or self-care (01) ==
LOC: LABWHC1 09:10
PROVIDERS: ATTEND Obstetrics & Gynecology
DX: N95.1 Menopausal and female climacteric states (principal)
CPT/HCPCS: 36415; 80051; 82306; 82310; 82627; 82670; 82947; 83001; 83002; 83498; 83525; 83540; 83550; 83735; 84100; 84144; 84146; 84402; 84403; 84439; 84443; 84481; 84702; 85025

== ENCOUNTER 2024-05-20 10:57 | Emergency (ER) | payer OTHER ==
[2024-05-20 11:16] VITALS: RESP 18; TEMP 98
--- NOTE | 2024-05-20 12:07 | ED ---
Neck Injury/Pain HPI - General Chief Complaint: Neck Pain/Injury Stated Complaint: Back injury, neck pain Time Seen by Provider: 05/20/24 11:52 Source: patient, RN notes reviewed Mode of arrival: ambulatory Limitations: no limitations - History of Present Illness Initial Comments: This is a 34-year-old female who presents to the emergency department for neck pain. States that she was moving furniture yesterday and developed severe pain to the back of her neck. States that the pain felt like a "crushing" sensation. It is very difficult to turn her head due to the pain and she also feels like she has pain radiating down the left arm. She tried taking ibuprofen 800 mg without any relief. MD Complaint: neck pain, neck injury - Related Data Home Medications Medication Instructions Recorded Confirmed Albuterol Inhaler [Ventolin Hfa 1 - 2 puff INHALATION RT-Q6H PRN 05/20/24 05/20/24 Inhaler] Cetirizine HCl [Zyrtec] 10 mg PO DAILY PRN 05/20/24 05/20/24 Famotidine 40 mg PO DAILY PRN 05/20/24 05/20/24 Ibuprofen [Motrin] 800 mg PO Q8H PRN 05/20/24 05/20/24 Rizatriptan Odt [Maxalt Java Sdet] 10 mg PO BID PRN 05/20/24 05/20/24 Sertraline [Zoloft] 25 mg PO DAILY 05/20/24 05/20/24 Previous Rx's Medication Instructions Recorded Ketorolac [Toradol] 10 mg PO Q6HR PRN #15 tab 05/20/24 methocarbamoL [Robaxin-750] 1,500 mg PO TID PRN #30 tab 05/20/24 Allergies Allergy/AdvReac Type Severity Reaction Status Date / Time ciprofloxacin [From Cipro] Allergy itching, Verified 05/20/24 12:06 chest pain, swelling amoxicillin [Amoxicillin] AdvReac Abdominal Verified 05/20/24 12:06 Pain Review of Systems ROS Statement: Those systems with pertinent positive or pertinent negative responses have been documented in the HPI. ROS Other: All systems not noted in ROS Statement are negative. 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 SEASONAL ALLERGIES History of Any Multi-Drug Resistant Organisms: None Reported Past Surgical History: Tonsillectomy, Tubal Ligation Additional Past Surgical History / Comment(s): D & C, nasal surgery, laparoscopy, bladder sling Past Anesthesia/Blood Transfusion Reactions: No Reported Reaction Past Psychological History: Anxiety, Depression Smoking Status: Current every day smoker Past Alcohol Use History: None Reported Past Drug Use History: Marijuana - Past Family History Mother Family Medical History: Hypertension General Exam Limitations: no limitations General appearance: alert, in no apparent distress Head exam: Present: atraumatic, normocephalic, normal inspection Neck exam: Present: other (Tenderness to palpation over the posterior cervical spine. Range of motion limited by pain) Respiratory exam: Present: normal lung sounds bilaterally. Absent: respiratory distress, wheezes, rales, rhonchi, stridor Cardiovascular Exam: Present: regular rate, normal rhythm, normal heart sounds. Absent: systolic murmur, diastolic murmur, rubs, gallop, clicks Neurological exam: Present: alert, oriented X3, CN II-XII intact Psychiatric exam: Present: normal affect, normal mood Skin exam: Present: warm, dry, intact, normal color. Absent: rash Course Vital Signs 05/20/24 05/20/24 11:13 13:34 Temperature 98 F Pulse Rate 78 77 Respiratory 18 18 Rate Blood Pressure 155/78 148/89 O2 Sat by Pulse 98 99 Oximetry Medical Decision Making - Medical Decision Making This is a 34 year old female who presents to the emergency department for neck pain. Was pt. sent in by a medical professional or institution? @ -No Did you speak to anyone other than the patient for history? @ -No Did you review nursing and triage notes? @ -Yes, and I agree, it is accurate with regards to the patient's symptoms. Were old charts reviewed? @ -No Differential Diagnosis? @ -Differential Neck Pain: Fracture, dislocation, contusion, strain, DDD, disc herniation, this is not meant to be an all-inclusive list. EKG interpreted by me (3pts min.)? @ -Not obtained X-rays interpreted by me (1pt min.)? @ -X-ray of the cervical spine obtained. My interpretation identifies no acute fractures. CT interpreted by me (1pt min.)? @ -Not obtained U/S interpreted by me (1pt. min.)? @ -Not obtained What testing was considered but not performed? (CT, X-rays, U/S, labs)? Why? @ -None What meds were considered but not given? Why? @ -None Did you discuss the management of the patient with other professionals? @ -No Did you reconcile home meds? @ -No Was smoking cessation discussed for >3mins.? @ -No Was critical care preformed (if so, how long)? @ -No Were there social determinants of health that impacted care today? How? (Homelessness, low income, unemployed, alcoholism, drug addiction, transportation, low edu. Level, literacy, decrease access to med. care, snf, rehab)? @ -No Was there de-escalation of care discussed even if they declined? (Discuss DNR or withdrawal of care, Hospice)? @ -No What co-morbidities impacted this encounter? (DM, HTN, Smoking, COPD, CAD, Cancer, CVA, Hep., AIDS, mental health diagnosis, sleep apnea, morbid obesity)? @ -None Was patient admitted / discharged? @ -Discharged. X-ray of the cervical spine reveals no acute process. Symptoms likely related to a cervical strain. Pain was managed in the emergency department. Prescription for Toradol and Robaxin provided. Advised follow-up with her PCP for reevaluation. Patient discharged home in stable condition. Case discussed with ED attending Dr. Godinez. Return precautions reviewed in depth, the patient is instructed to return to the emergency department with any new, worsening, or concerning symptoms. Patient verbalized understanding. Undiagnosed new problem with uncertain prognosis? @ -None Drug Therapy requiring intensive monitoring for toxicity (Heparin, Nitro, Insulin, Cardizem)? @ -None Were any procedures done? @ -None Diagnosis/symptom? @ -Cervical strain Acute, or Chronic, or Acute on Chronic? @ -Acute Uncomplicated (without systemic symptoms) or Complicated (systemic symptoms)? @ -Uncomplicated Side effects of treatment? @ -None Exacerbation, Progression, or Severe Exacerbation] @ -Not applicable Poses a threat to life or bodily function? @ -No - Radiology Data Radiology results: report reviewed, image reviewed Disposition Clinical Impression: Cervical strain Disposition: HOME SELF-CARE Instructions (If sedation given, give patient instructions): Cervical Strain (ED) Additional Instructions: Return to the emergency department with any new, worsening, or concerning symptoms. Take the Toradol with Tylenol as needed for pain relief. If you choose to take the Toradol, do not take any other anti-inflammatories such as ibuprofen, take one or the other. Take the Robaxin as 1 to 2 tablets up to 3-4 times daily. Follow up with your primary care provider in 1-2 days. Prescriptions: methocarbamoL [Robaxin-750] 1,500 mg PO TID PRN #30 tab PRN Reason: Pain Ketorolac [Toradol] 10 mg PO Q6HR PRN #15 tab PRN Reason: Pain Is patient prescribed a controlled substance at d/c from ED?: No Referrals: Natalio Snyder MD [Primary Care Provider] - 1-2 days Time of Disposition: 13:03
[2024-05-20] MEDS: HYDROcodone/APAP 7.5-325MG 1 EACH TAB PO ONE (12:10)
[2024-05-20] MEDS: ORPHENADRINE 30 MG/ML 2 ML VIAL IM STA (12:11)
[2024-05-20] MEDS: KETOROLAC 15 MG/ML 1 ML VIAL IM STA (12:11)
[2024-05-20] MEDS: DEXAMETHASONE SOD PHOSPHATE 10 MG/ML 1 ML VIAL IM STA (12:12)
--- NOTE | 2024-05-20 12:44 | XR ---
EXAMINATION TYPE: XR cervical spine comp DATE OF EXAM: 05/20/2024 CLINICAL HISTORY: pain COMPARISON: NONE TECHNIQUE: Frontal, lateral, oblique, swimmers, and open mouth view of the cervical spine are obtaine d. FINDINGS: The cervical spine is visualized in its entirety from C1 thru the top of T1 level. It is s atisfactory in alignment without evidence of acute fracture or dislocation. The pre-vertebral soft t issue appears within normal limits. Disc spaces are well preserved. The C1-C2 articulation is unremar kable on the open mouth view. The oblique images are within normal limits. IMPRESSION: No acute fracture or dislocation is seen in the cervical spine.ICD 10 NO FRACTURE, INITI AL EVALUATION [facility], , 05/20/2024 12:42 PM
[2024-05-20] MEDS: HYDROmorphone 1 MG/ML 1 ML SYRINGE IM STA (13:05)
[2024-05-20] MEDS: ACET/COD 300 MG/30 MG STARTER PACK 6 TAB BTL PO STA (13:06)
[2024-05-20 13:36] VITALS: BP 148/89; PULSE 77
== END 2024-05-20 13:34 | disposition home or self-care (01) ==
LOC: EC 10:57
CPT/HCPCS: 72050; 96372; 99283

== ENCOUNTER → 2024-05-31 | Outpatient (CLI) | payer OTHER ==
--- NOTE | 2024-06-01 07:21 | MR ---
EXAMINATION TYPE: MR brain wo con DATE OF EXAM: 05/31/2024 3:51 PM COMPARISON: 03/14/2016. CLINICAL INDICATION: Female, 34 years old with history of MIGRAINES; PHH, Migraines and past trauma TECHNIQUE: Multi planar, multi sequence imaging was performed through the brain including: T1, T2, In version recovery, Diffusion weighted imaging, and gradient echo imaging. No gadolinium was given. FINDINGS: The esteban-white junctions, ventricular system, basal cisterns appear unremarkable. . Midline structure s show no abnormality. Diffusion-weighted imaging shows no evidence of restricted diffusion. The susc eptibility weighted images do not reveal any evidence for micro-hemorrhage. The bone marrow signal is within normal limits. Paranasal sinuses and mastoid air cells: Suspicious left mastoid air cell effusion right high T2 sign al. Visualized orbits: Orbital contents are intact. IMPRESSION: 1. No evidence of intracranial mass or acute/subacute infarct. 2. Trace left mastoid air cell effusion. [facility], , 06/01/2024 7:19 AM
== END | disposition home or self-care (01) ==
LOC: RADMRIMAIN 14:45
PROVIDERS: ATTEND Family Medicine
DX: G43.109 Migraine with aura, not intractable, without status migrainosus (principal)
CPT/HCPCS: 70551

== ENCOUNTER 2024-09-16 17:14 | Emergency (ER) | payer OTHER ==
--- NOTE | 2024-09-16 18:01 | ED ---
Chest Pain HPI - General Source: patient Mode of arrival: ambulatory Limitations: no limitations <Sherice Sorensen - Last Filed: 09/16/24 18:00> - General Source: patient, RN notes reviewed Mode of arrival: ambulatory Limitations: no limitations <Mary Contreras - Last Filed: 09/17/24 19:35> - General Chief Complaint: Chest Pain Stated Complaint: Chest pain,SOB Time Seen by Provider: 09/16/24 18:00 - History of Present Illness Initial Comments: 34-year-old female presenting with chief complaint of chest pain and shortness of breath. Patient also admits to cough. She was seen by PCP today, states she was told that she had wheezing and she has an elevated blood pressure, no history of hypertension (Sherice Sorensen) 34-year-old female presented to the ER for evaluation of shortness of breath and chest discomfort. Patient states last night she felt a sudden onset sharp chest discomfort. She states she went to bed and this morning when she woke up she started to feel short of breath with exertional dyspnea upon walking to the bathroom. She denies a history of asthma or COPD. No peripheral edema or home O2 use. Patient states she does occasionally use an albuterol inhaler for bronchitis she attempted to use this as she felt "wheezy". Patient also reports today she noticed to have a cough with productive phlegm. She also reports feeling lightheaded as well. Patient was seen by primary care physician and was told she had an elevated blood pressure 160s over 110s which prompted ER visit. Patient does not have a history of hypertension and does not take any antihypertensive medications. Patient has no significant past medical history. No history of blood clots or cardiac disease. No fevers, nausea, vomiting, abdominal pain, constipation, urinary complaints. Patient does state a couple days ago she felt generalized bodyaches and had diarrhea which has since resolved. (Mary Contreras) - Related Data Home Medications Medication Instructions Recorded Confirmed Albuterol Inhaler [Ventolin Hfa 1 - 2 puff INHALATION RT-Q6H PRN 05/20/24 05/20/24 Inhaler] Cetirizine HCl [Zyrtec] 10 mg PO DAILY PRN 05/20/24 05/20/24 Famotidine 40 mg PO DAILY PRN 05/20/24 05/20/24 Ibuprofen [Motrin] 800 mg PO Q8H PRN 05/20/24 05/20/24 Rizatriptan Odt [Maxalt Tanker Driver] 10 mg PO BID PRN 05/20/24 05/20/24 Sertraline [Zoloft] 25 mg PO DAILY 05/20/24 05/20/24 Previous Rx's Medication Instructions Recorded Ketorolac [Toradol] 10 mg PO Q6HR PRN #15 tab 05/20/24 methocarbamoL [Robaxin-750] 1,500 mg PO TID PRN #30 tab 05/20/24 Allergies Allergy/AdvReac Type Severity Reaction Status Date / Time ciprofloxacin [From Cipro] Allergy itching, Verified 09/16/24 17:34 chest pain, swelling amoxicillin [Amoxicillin] AdvReac Abdominal Verified 09/16/24 17:34 Pain Review of Systems ROS Other: All systems not noted in ROS Statement are negative. <Sherice Sorensen - Last Filed: 09/16/24 18:00> ROS Other: All systems not noted in ROS Statement are negative. <Mary Contreras - Last Filed: 09/17/24 19:35> ROS Statement: Those systems with pertinent positive or pertinent negative responses have been documented in the HPI. EKG Findings - EKG Comments: EKG Findings:: EKG taken at 18: 49 showing a sinus rhythm. No ST segment elevations or depressions. No T wave abnormalities. Ventricular rate 72, OR interval 164, QRS duration 94, QT/QTc 386/411. <Mary Contreras - Last Filed: 09/17/24 19:35> Past Medical History Past Medical History: Pneumonia Additional Past Medical History / Comment(s): heart valve problem-HAD RECENT EC HO AND NO CHANGES. SEASONAL ALLERGIES History of Any Multi-Drug Resistant Organisms: None Reported Past Surgical History: Tonsillectomy, Tubal Ligation Additional Past Surgical History / Comment(s): D & C, nasal surgery, laparoscopy, bladder sling Past Anesthesia/Blood Transfusion Reactions: No Reported Reaction Past Psychological History: Anxiety, Depression Smoking Status: Current every day smoker Past Alcohol Use History: None Reported Past Drug Use History: Marijuana - Past Family History Mother Family Medical History: Hypertension <Sherice Sorensen - Last Filed: 09/16/24 18:00> General Exam Limitations: no limitations <Sherice Sorensen - Last Filed: 09/16/24 18:00> Limitations: no limitations General appearance: alert, in no apparent distress Respiratory exam: Present: normal lung sounds bilaterally. Absent: respiratory distress, wheezes, rales, rhonchi, stridor Cardiovascular Exam: Present: regular rate, normal rhythm, normal heart sounds. Absent: systolic murmur, diastolic murmur, rubs, gallop, clicks Extremities exam: Present: normal inspection, full ROM, normal capillary refill. Absent: tenderness, pedal edema, joint swelling, calf tenderness Neurological exam: Present: alert, oriented X3, CN II-XII intact Skin exam: Present: warm, dry, intact, normal color. Absent: rash <Mary Contreras - Last Filed: 09/17/24 19:35> - General Exam Comments Initial Comments: Visual Physical Exam Vital signs reviewed General: Well-appearing, nontoxic, no acute distress. Head: Normocephalic, atraumatic Eyes: PERRLA, EOMI ENT: Airway patent Chest: Nonlabored breathing Skin: No visual rash, normal skin tone Neuro: Alert and oriented 3 Musculoskeletal: No gross abnormalities (Sherice Sorensen) Course Vital Signs 09/16/24 09/16/24 09/16/24 17:32 20:07 23:22 Temperature 98.2 F 98.7 F Pulse Rate 75 69 66 Respiratory 18 16 18 Rate Blood Pressure 151/88 127/81 121/75 O2 Sat by Pulse 99 99 97 Oximetry Chest Pain MDM <Sherice Sorensen - Last Filed: 09/16/24 18:00> <Mary Contreras - Last Filed: 09/17/24 19:35> - MDM I performed the quick note portion of this visit, electronically signed Sherice Sorensen PA-C (Sherice Sorensen) Was pt. sent in by a medical professional or institution ([facility], [facility], urgent care, hospital, or care home...) When possible be specific @ -No Did you speak to anyone other than the patient for history (EMS, parent, family, police, friend...)? What history was obtained from this source @ -No Did you review nursing and triage notes (agree or disagree)? Why? @ -I reviewed and agree with nursing and triage notes Were old charts reviewed (outside hosp., previous admission, EMS record, old EKG, old radiological studies, urgent care reports/EKG's, care home records)? Report findings @ -No old charts were reviewed Differential Diagnosis (chest pain, altered mental status, abdominal pain women, abdominal pain men, vaginal bleeding, weakness, fever, dyspnea, syncope, headache, dizziness, GI bleed, back pain, seizure, CVA, palpatations, mental health, musculoskeletal)? @ -Differential Chest Pain:Stable Angina, Unstable Angina, STEMI, NSTEMI Aortic Dissection, Pneumothorax, Musculoskeletal, Esophageal Spasm GERD, Cholecystitis, Pancreatitis, Zoster, this is not meant to be an all-inclusive list. EKG interpreted by me (3pts min.). @ -As above X-rays interpreted by me (1pt min.). @ -CXR interpreted remain negative for acute cardiopulmonary process.] CT interpreted by me (1pt min.). @ -CTA chest showing no evidence of pulmonary embolism. Incidental pulmonary nodules noted. U/S interpreted by me (1pt. min.). @ -None done What testing was considered but not performed or refused? (CT, X-rays, U/S, labs)? Why? @ -None What meds were considered but not given or refused? Why? @ -None Did you discuss the management of the patient with other professionals (pro fessionals i.e. , PA, [employer], lab, RT, psych nurse, social work msw, glove parts cutter, teacher, guest services officer, case assembler)? Give summary @ -No Was smoking cessation discussed for >3mins.? @ -I discussed smoking cessation for greater than 3 minutes. The risk of smoking were discussed with the patient including but not limited to risks of cancer, stroke, coronary artery disease and COPD. Also discussed with patient were multiple methods of quitting smoking. Lastly we discussed the financial cost of smoking. Was critical care preformed (if so, how long)? @ -No Were there social determinants of health that impacted care today? How? (Homelessness, low income, unemployed, alcoholism, drug addiction, transportation, low edu. Level, literacy, decrease access to med. care, care home, rehab)? @ -No Was there de-escalation of care discussed even if they declined (Discuss DNR or withdrawal of care, Hospice)? DNR status @ -No What co-morbidities impacted this encounter? (DM, HTN, Smoking, COPD, CAD, Cance r, CVA, ARF, Chemo, Hep., AIDS, mental health diagnosis, sleep apnea, morbid obesity)? @ -Smoker Was patient admitted / discharged? Hospital course, mention meds given and route, prescriptions, significant lab abnormalities, going to OR and other pertinent info. @ -Discharge. 34-year-old female presented to the ER for evaluation of chest discomfort. Patient originally seen as a quick note. Upon rooming and my examination, history and physical exam completed. Vitals with acceptable limits. Workup in the ER showing troponin x 2 negative. D-dimer elevated at 1.10 for which CTA chest was ordered to rule out pulmonary embolism. CTA chest is negative for pulmonary embolism. Incidental pulmonary nodules noted. CXR negative. EKG showing sinus rhythm. HEART score 1. Throughout ER stay patient complained of headache. She states this is similar to typical migraines. Patient received headache cocktail with improvement of discomfort. Upon reevaluation, laboratory and imaging results discussed with patient, all questions answered. I advised close follow-up with PCP in the next 1 to 2 days for reevaluation and further follow-up of incidental pulmonary nodules. Strict return parameters discussed. Patient discharged in stable condition. Patient verbally expressed understanding agree with care plan. Case discussed with ED attending, Dr. Brown. Undiagnosed new problem with uncertain prognosis? @ -No Drug Therapy requiring intensive monitoring for toxicity (Heparin, Nitro, Insulin, Cardizem)? @ -No Were any procedures done? @ -No Diagnosis/symptom? @ -Atypical chest pain Acute, or Chronic, or Acute on Chronic? @ -Acute Uncomplicated (without systemic symptoms) or Complicated (systemic symptoms)? @ -Uncomplicated Side effects of treatment? @ -No Exacerbation, Progression, or Severe Exacerbation? @ -No Poses a threat to life or bodily function? How? (Chest pain, [place], MS, pneumonia, PE, COPD, DKA, ARF, appy, cholecystitis, CVA, Diverticulitis, Homicidal, Suicidal, threat to staff... and all critical care pts) @ -No (Mary Contreras) Disposition <Sherice Sorensen - Last Filed: 09/16/24 18:00> Is patient prescribed a controlled substance at d/c from ED?: No Time of Disposition: 23:30 <Mary Contreras - Last Filed: 09/17/24 19:35> Clinical Impression: Atypical chest pain Disposition: HOME SELF-CARE Condition: Stable Instructions (If sedation given, give patient instructions): Chest Pain (ED) Additional Instructions: Follow-up with PCP. Return to the ER for any new or worsening symptoms. Referrals: Natalio Snyder MD [Primary Care Provider] - 1-2 days
--- NOTE | 2024-09-16 18:31 | XR ---
EXAMINATION TYPE: XR chest 2V DATE OF EXAM: 09/16/2024 6:13 PM COMPARISON: Chest radiographs from 02/26/2023 CLINICAL INDICATION: Female, 34 years old with history of Chest Pain; TECHNIQUE: XR chest 2V Frontal and lateral views of the chest. FINDINGS: Lungs/Pleura: There is no evidence of pleural effusion, focal consolidation, or pneumothorax. Pulmonary vascularity: Unremarkable. Heart/mediastinum: Cardiomediastinal silhouette is unremarkable. Musculoskeletal: No acute osseous pathology. IMPRESSION: No acute cardiopulmonary disease/process. [facility], , 09/16/2024 6:29 PM
[2024-09-16 19:44] LABS: ALT 24 U/L (4-34); AST 31 U/L (14-36); African American GFR (CKD) >90 (>60 ml/min/1.73 sqM); Albumin 4.3 g/dL (3.5-5.0); Alkaline Phosphatase 69 U/L (38-126); Anion Gap 11 mmol/L; Blood Urea Nitrogen 15 mg/dL (7-17); Calcium 9.2 mg/dL (8.4-10.2); Carbon Dioxide 21 mmol/L (22-30); Chloride 104 mmol/L (98-107); Glucose 96 mg/dL (74-99); Magnesium 1.9 mg/dL (1.6-2.3); Non-African American GFR(CKD) >90 (>60 ml/min/1.73 sqM); Sodium 136 mmol/L (137-145); Total Bilirubin 0.5 mg/dL (0.2-1.3); Total Protein 7.5 g/dL (6.3-8.2)
[2024-09-16 19:48] LABS: HCT 46.3 % (34.0-46.0); HGB 15.4 gm/dL (11.4-16.0); MCH 28.9 pg (25.0-35.0); MCHC 33.2 g/dL (31.0-37.0); MCV 87.1 fL (80.0-100.0); Mean Platelet Volume 9.5; Platelet Count 193 k/uL (150-450); RBC 5.31 m/uL (3.80-5.40); RDW 12.7 % (11.5-15.5); WBC 6.3 k/uL (3.8-10.6)
[2024-09-16 19:52] LABS: Partial Thromboplastin Time 23.2 sec (22.0-30.0); Prothrombin Time 10.7 sec (10.0-12.5)
[2024-09-16 20:05] LABS: Influenza A Not Detected (Not Detectd); Influenza B Not Detected (Not Detectd); RSV Not Detected (Not Detectd)
[2024-09-16 20:24] LABS: Eosinophils # (M) 0.13 k/uL (0-0.7); Lymphocytes # (M) 2.08 k/uL (1.0-4.8); Monocytes # (M) 0.13 k/uL (0-1.0); Neutrophils # (M) 3.97 k/uL (1.3-7.7); Neutrophils % (M) 63 %; Nucleated Red Blood Cells 0 /100 WBC (0-0); Total Cells Counted 100
[2024-09-16 20:25] LABS: Large Platelets Present
[2024-09-16] MEDS: SODIUM CHLORIDE 0.9% 1,000 ML IV STA (21:02)
[2024-09-16] MEDS: ACETAMINOPHEN TAB 325 MG TAB PO STA (21:14)
--- NOTE | 2024-09-16 21:17 | CT ---
EXAMINATION TYPE: CT chest angio for PE DATE OF EXAM: 09/16/2024 9:00 PM COMPARISON: Chest radiograph from same day. CLINICAL INDICATION: Female, 34 years old with history of cp/sob/elevated dimer; cp/sob/elevated dime r. TECHNIQUE/CONTRAST: CTA scan of the thorax is performed with IV Contrast, patient injected with 100 ml mL of Isovue 370, MIP images are created and reviewed these are created on a separate workstation.. CT DLP: 383.5 mGycm, Automated exposure control for dose reduction was used. FINDINGS: Lungs/Pleura: No evidence of focal consolidation, pleural effusion or pneumothorax. Airway: Large airways are patent. Heart: Size within normal limits Vasculature: There is no evidence for a filling defect within the pulmonary vasculature to suggest ac [place] pulmonary embolism. The pulmonary artery is of normal size. Mediastinum: No gross evidence of adenopathy. Musculoskeletal: Mild disc degeneration changes are present throughout the thoracolumbar spine second sia to osteophyte formation and facet joint arthropathy. Soft Tissues/lymph nodes: Unremarkable. Lower neck: No significant findings. Upper Abdomen: No significant findings. IMPRESSION: 1. No evidence of pulmonary embolism. Follow up recommendations for incidental pulmonary nodules, if there are any, are per [employer] [employer] or [employer] [place] [employer]. https://radiopaedia.org/articles/gneblfrjbv-pzdkibl-nuezfjnoc-uxlqml-azevkqilhsrifbe-8?lang=us [facility], , 09/16/2024 9:15 PM
[2024-09-16] MEDS: diphenhydrAMINE 50 MG/ML 1 ML VIAL IVP STA (22:25)
[2024-09-16] MEDS: METOCLOPRAMIDE 5 MG/ML 2 ML VIAL IVP STA (22:26)
[2024-09-16] MEDS: KETOROLAC 15 MG/ML 1 ML VIAL IVP STA (22:28)
[2024-09-16] MEDS: methylPREDNISolone SOD SUCCI 125 MG/2 ML VIAL IV STA (22:28)
[2024-09-16 23:23] VITALS: BP 121/75; PULSE 66; RESP 18; TEMP 98.7
== END 2024-09-16 23:40 | disposition home or self-care (01) ==
LOC: EC 17:14
DX: R07.89 Other chest pain (principal); F17.200 Nicotine dependence, unspecified, uncomplicated; Z88.0 Allergy status to penicillin; Z88.1 Allergy status to other antibiotic agents
CPT/HCPCS: 99285; 96374; 96375; 96361; 99406; 36415; 93005; 85379; 80053; 83735; 84484; 85025; 85610; 85730; 87636; 71046; 71275; J1200; J2765; J1885; Q9967; J2919

== ENCOUNTER 2024-10-30 14:38 | Emergency (ER) | payer OTHER ==
[2024-10-30 14:42] VITALS: TEMP 97.7
[2024-10-30] MEDS: FLUORESCEIN STRIPS 1 MG STRIP LEFT EYE ONE ×2 (15:46→15:49)
[2024-10-30] MEDS: TETRACAINE 0.5% OPHTH (PF) DROPS 4 ML BTL LEFT EYE STA (15:48)
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
[2024-10-30] MEDS: TOBRAMYCIN 0.3% OPHTH DROPS 5 ML BTL LEFT EYE STA (17:29)
[2024-10-30 17:40] VITALS: BP 130/82; PULSE 75; RESP 20
== END 2024-10-30 17:39 | disposition home or self-care (01) ==
LOC: EC 14:38
DX: S05.02XA Injury of conjunctiva and corneal abrasion without foreign body, left eye, initial encounter (principal); F17.200 Nicotine dependence, unspecified, uncomplicated; Z88.0 Allergy status to penicillin; Z88.1 Allergy status to other antibiotic agents; W26.8XXA Contact with other sharp object(s), not elsewhere classified, initial encounter
CPT/HCPCS: 99283